=== PATIENT | male | born 1940 | race Caucasian/White ===

== ENCOUNTER 2016-02-20 06:30 | Inpatient (IN) | payer MEDICARE, OTHER ==
[~2016-02-20] VITALS: Ht 165.1 cm; Wt 90.4 kg
[2016-02-20] VITALS (9 sets, daily range): BP systolic 127–136; BP diastolic 71–72; PULSE 66–126; RESP 18–19; TEMP 98.6; Ht 165.1 cm; Wt 90.4 kg
[~2016-02-20 06:30] MED LIST: ADV25050 INH; ALBU18HF INHALATION; AMIO200T2 PO; ATOR10TA65 PO; ESOM40CA PO; FURO20TA3 PO; IPRA4AER INHALATION; LANT3I SC; LEVO500T72 PO; LOSA50TA6 PO; METO25TA7 PO; NOVO3I SC; POTA8TAB35 PO; PRED10TA PO; UMEC1DIS INHALATION
[2016-02-20] MEDS ORDERED: METHYLPREDNISOLONE 40 MG INJ IV STA (06:39)
[2016-02-20] MEDS ORDERED: ALBUTEROL 0.5% (NEB) 2.5 MG/0.5 ML AMP INH STA (06:39)
[2016-02-20] MEDS ORDERED: ASPIRIN 325 MG TAB PO ONE (07:00)
[2016-02-20] MEDS ORDERED: MAGNESIUM SULFATE 1 GM/D5W 100 ML IVPB ONE (07:00)
[2016-02-20 07:12] LABS: BASOPHILS % 0.5 % (0.0-2.0); EOSINOPHILS # 0.1 10^3/ul (0.0-0.5); EOSINOPHILS % 1.1 % (0.0-7.0); HEMATOCRIT 38.6 % (42.0-52.0); HEMOGLOBIN 13.3 g/dl (14.0-18.0); LYMPHOCYTES % 37.4 % (15.0-51.0); MEAN CORPUSCULAR HEMOGLOBIN 32.1 pg (29.0-33.0); MEAN CORPUSCULAR HGB CONC 34.3 g/dl (32.0-37.0); MEAN CORPUSCULAR VOLUME 93.4 fl (82.0-101.0); MEAN PLATELET VOLUME 8.9 fl (7.4-10.4); MONOCYTE # 1.1 10^3/ul (0.3-0.9); MONOCYTES % 13.9 % (0.0-11.0); NEUTROPHIL # 3.8 10^3/ul (1.6-7.5); NEUTROPHILS % 47.1 % (39.0-77.0); PLATELET COUNT 309 10^3/UL (140-440); RED BLOOD COUNT 4.13 10^6/ul (4.70-6.10); RED CELL DISTRIBUTION WIDTH 15.2 % (11.5-14.5); UNCORRECTED WBC 8.1 10^3/ul (4.8-10.8); WHITE BLOOD COUNT 8.1 10^3/ul (4.8-10.8)
--- NOTE | 2016-02-20 07:12 | RADRPT ---
PROCEDURE: XR Chest. CLINICAL INDICATION: Shortness of breath TECHNIQUE: 2 AP views of the chest were obtained COMPARISON: Chest x-ray dated 01/18/2006 FINDINGS: There is a left subclavian dual chamber pacemaker AICD. No focal airspace opacification, pleural effusion or pneumothorax is seen. The cardiomediastinal si lhouette is mildly enlarged. Calcifications are seen within the aortic arch. The osseous structure s demonstrate senescent changes. IMPRESSION: 1. No radiographic evidence of acute cardiopulmonary disease. no significant interval change. 2. Mild cardiomegaly and aortic atherosclerosis. 3. Left subclavian pacemaker AICD. RPTAT: HH .Loal Keller MD, MD Date Time Electronically viewed and signed by .Lola Keller MD, on 02/20/2016 07:12 .G/
[2016-02-20 07:13] LABS: CONDITION 1; LH ANALYZER COMMENTS 1
[2016-02-20 07:23] LABS: ALBUMIN 3.8 g/dl (3.3-4.9)
[2016-02-20 07:25] LABS: CREATININE 2.1 mg/dl (0.61-1.24)
[2016-02-20 07:26] LABS: ALBUMIN/GLOBULIN RATIO 1.08; BILIRUBIN,INDIRECT 0.2 mg/dl (0-1.1); BILIRUBIN,TOTAL 0.2 mg/dl (0.2-1.3); CALCIUM 9.2 mg/dl (8.4-10.2); INR 0.96; PROTIME 12.8 Sec (12.2-14.2); TOTAL PROTEIN 7.3 g/dl (6.1-8.1)
[2016-02-20 07:39] LABS: TROPONIN-I 0.106 ng/ml (0.00-0.12)
[2016-02-20] MEDS ORDERED: FUROSEMIDE 40 MG INJ IV ONE (08:00)
--- NOTE | 2016-02-20 08:32 | ERA ---
ER Documentation Chief Complaint Date/Time DATE: 02/20/16 TIME: 08:27 Chief Complaint SOB post internal defib fire x 3 HPI 75-year-old man with multiple medical conditions woke up today feeling short of breath and states his AICD discharged 3 times. Upon EMS arrival patient was found to be in ventricular tachycardia which resolved spontaneously. He denies chest pain, and states he remains short of breath although it has improved. He denies fevers or chills, no recent cough, no calf or leg swelling, no headache or blurry vision. Patient was transported here by EMS without other complications. ROS All systems reviewed and are negative except as per history of present illness. Medications Home Meds Active Scripts Insulin Glargine* (Lantus*) 100 Unit/Ml Soln, 21 UNIT SC DAILY for 5 Days, UNITS Prov:DEMETRIO JARAMILLONan . 01/21/16 Insulin Glargine* (Lantus*) 100 Unit/Ml Soln, 16 UNIT SC QHS for 30 Days start 01/27/16 Prov:DEMETRIO JARAMILLONan . 01/21/16 Albuterol/Ipratropium* (Combivent Respimat*) 20-100 Mcg/Inh - 4 Gm Aer.w.adap, 1 PUFF INHALATION Q4H WHILE AWAKE Y for SHORTNESS OF BREATH, #1 INHALER 1 Refill Prov:DEMETRIO JARAMILLONan . 01/21/16 Levofloxacin* (Levaquin*) 500 Mg Tablet, 500 MG PO DAILY for 5 Days, TAB Prov:CLINTDEMETRIO. 01/21/16 Salmeterol Xinaf/Fluticasone* (Advair*) 250-50 Diskus Inhaler, 1 INH INH BID, # 1 VIAL 1 Refill Prov:DEMETRIO JARAMILLONan . 01/21/16 Potassium Chloride* (Klor-Con*) 8 Meq Tablet.sa, 8 MEQ PO Q48H for 30 Days Prov:DEMETRIO JARAMILLO. 01/21/16 Insulin Aspart* (Novolog Insulin Pen*) 100 Unit/Ml Soln, 6 UNIT SC WITH MEALS for 30 Days ok to dispense vial if pen is not covered Prov:DEMETRIO JARAMILLONan . 01/21/16 Furosemide* (Furosemide*) 20 Mg Tablet, 20 MG PO DAILY for 30 Days, TAB Prov:CLINT,BOLATITO M. 01/21/16 Prednisone* (Prednisone*) 10 Mg Tab, 10 MG PO DAILY, #15 TAB take 5 pills tomorrow take 4 pills on the next day take 3 pills on the next day take 2 pills on the next day take 1 pill on the next day then stop Prov:SABA JARAMILLO M. 01/21/16 Reported Medications Umeclidinium Brm-Vilanterol Tr (Anoro Ellipta) 62.5-25 Mcg Disk.w.dev, 1 EACH INHALATION DAILY, #1 DISK 01/18/16 Losartan Potassium* (Losartan Potassium*) 50 Mg Tablet, 50 MG PO DAILY, TAB 01/18/16 Metoprolol Succinate* (Toprol XL*) 25 Mg Tab.sr.24h, 25 MG PO DAILY, #30 TAB 01/18/16 Amiodarone Hcl* (Amiodarone Hcl*) 200 Mg Tablet, 200 MG PO DAILY, #30 TAB 01/18/16 Albuterol Sulfate* (Ventolin HFA*) 18 Gm Hfa.aer.ad, 2 PUFF INHALATION Q4H Y for WHEEZING AND RESP DISTRESS, #1 INHALER 01/18/16 Atorvastatin Calcium (Atorvastatin Calcium) 10 Mg Tablet, 10 MG PO QHS, #30 TAB 01/18/16 Esomeprazole Mag Trihydrate (Nexium) 40 Mg Capsule.dr, 40 MG PO AC BREAKFAST, # 30 CAP 01/18/16 Allergies Allergies: Coded Allergies: No Known Allergy (Unverified , 01/20/16) PMhx/Soc AICD placement, chronic obstructive pulmonary disease, diabetes mellitus, hypertension, ischemic cardiomyopathy with a left ventricular ejection fraction of about 25%, paroxysmal atrial fibrillation, dyslipidemia History of Surgery: Yes (R leg surgery, AID) Anesthesia Reaction: No Hx Neurological Disorder: No Hx Respiratory Disorders: Yes (COPD) Hx Cardiac Disorders: Yes (HTN, DYSLIPIDEMIA, PREVIOUS UT, CHF) Hx Psychiatric Problems: No Hx Miscellaneous Medical Probl: Yes (DM) Hx Alcohol Use: No (QUIT) Hx Substance Use: No Hx Tobacco Use: Yes Smoking Status: Current some day smoker FmHx Family History: No diabetes Physical Exam Vitals Vital Signs Date Time Temp Pulse Resp B/P Pulse Ox O2 Delivery O2 Flow Rate FiO2 02/20/16 12:30 98.1 94 22 94/72 100 Nasal Cannula 4.0 02/20/16 09:56 98.1 92 22 119/64 100 Nasal Cannula 4.0 02/20/16 08:05 4.0 02/20/16 08:05 96 19 99 Nasal Cannula 4.0 02/20/16 07:57 98.1 90 16 107/54 100 Non Rebreather 02/20/16 06:48 Non Rebreather 12 02/20/16 06:41 Non Rebreather 12.0 02/20/16 06:30 98.1 116 16 141/81 100 Physical Exam GENERAL: Well-developed, well-nourished, dyspneic, afebrile HEENT: Moist mucous membranes, pink conjunctiva, no cervical spine tenderness or step-off deformities, no goiter, no jaundice or icterus, extraocular movements intact without pain. No submandibular induration, and no pharyngeal erythema NEURO: Alert and oriented 3, cranial nerves II through XII intact bilaterally, pupils equal round reactive to light, no focal deficits or facial asymmetry, sensation intact distally Strength 5/5 in upper and lower extremities bilaterally CARDIAC: Tachycardic and regular, no murmurs rubs or gallops LUNGS: Rhonchorous breath sounds with mild wheezing and crackles, no stridor ABDOMEN: Soft nontender, no guarding, no rigidity, no rebound, no psoas sign no obturator sign. Normoactive bowel sounds SKIN: Warm and dry to touch, no abrasions, contusions, or hematomas, no lacerations, no ecchymosis, no target lesions, and without ulcers EXTREMITIES: No clubbing cyanosis, 1+ pitting edema in the lower extremities bilaterally, calves are bilaterally symmetrical, no Homans sign, no popliteal cord sign. Distal pulses equal and bilateral PSYCH: Normal affect without agitation or irritability Result Diagram: 02/20/1635 02/20/1635 Results 24 hrs Laboratory Tests Test 02/20/16 06:35 Alanine Aminotransferase (ALT/SGPT) 21IU/L Albumin 3.8g/dl Albumin/Globulin Ratio 1.08 Alkaline Phosphatase 70IU/L Anion Gap 20 Aspartate Amino Transf (AST/SGOT) 19IU/L B-Type Natriuretic Peptide 3540PG/ML Basophils # 0.010^3/ul Basophils % 0.5% Blood Morphology Comment Blood Urea Nitrogen 19mg/dl Calcium Level 9.2mg/dl Carbon Dioxide Level 24mmol/L Chloride Level 105mmol/L Creatine Kinase 54IU/L Creatinine 2.10mg/dl Creatinine Kinase MB (Mass) Pending Direct Bilirubin 0.00mg/dl Eosinophils # 0.110^3/ul Eosinophils % 1.1% Globulin 3.50g/dl Glucose Level 158mg/dl Hematocrit 38.6% Hemoglobin 13.3g/dl INR International Normalized Ratio 0.96 Indirect Bilirubin 0.2mg/dl Lipase 153U/L Lymphocytes # 3.010^3/ul Lymphocytes % 37.4% Mean Corpuscular Hemoglobin 32.1pg Mean Corpuscular Hemoglobin Concent 34.3g/dl Mean Corpuscular Volume 93.4fl Mean Platelet Volume 8.9fl Monocytes # 1.110^3/ul Monocytes % 13.9% Neutrophils # 3.810^3/ul Neutrophils % 47.1% Nucleated Red Blood Cells # 0.010^3/ul Nucleated Red Blood Cells % 0.0/100WBC Platelet Count 57214^3/UL Potassium Level 5.0mmol/L Prothrombin Time 12.8Sec Prothrombin Time Ratio 1.0 Red Blood Count 4.1310^6/ul Red Cell Distribution Width 15.2% Sodium Level 144mmol/L Total Bilirubin 0.2mg/dl Total Protein 7.3g/dl Troponin I 0.106ng/ml White Blood Count 8.110^3/ul Current Medications Medications (Trade) Dose Ordered Sig/Francois Route PRN Reason Start Time Stop Time Status Last Admin Dose Admin Aspirin 325 mg 325 mg ONCE ONCE PO 02/20/16 07:00 02/20/16 07:01 DC 02/20/16 06:54 Magnesium Sulfate/ Dextrose (Magnesium Sulfate 1 Gm/D5W) 100 ml @ 100 mls/hr ONCE ONCE IVPB 02/20/16 07:00 02/20/16 07:59 DC 02/20/16 06:55 Albuterol (Proventil 0.5% (Neb)) 5 mg ONCE STAT INH 02/20/16 06:39 02/20/16 06:42 DC 02/20/16 07:45 Methylprednisolone Sodium Succinate (Solu-Medrol) 40 mg ONCE STAT IV 02/20/16 06:39 02/20/16 06:42 DC 02/20/16 06:55 Furosemide (Lasix) 40 mg ONCE ONCE IV 02/20/16 08:00 02/20/16 08:01 DC 02/20/16 07:53 Amiodarone HCl (Cordarone) 150 mg ONCE STAT IV 02/20/16 08:38 02/20/16 08:39 DC 02/20/16 08:44 Amiodarone HCl (Cordarone) 150 mg STK-MED ONCE .ROUTE 02/20/16 08:38 02/20/16 08:39 DC Albuterol (Ventolin Hfa) 2 puff Q4H PRN INH WHEEZING AND RESP DISTRESS 02/20/16 09:00 Amiodarone HCl (Cordarone) 200 mg DAILY PO 02/20/16 09:00 Atorvastatin Calcium (Lipitor) 10 mg QHS PO 02/20/16 21:00 Furosemide (Lasix) 20 mg DAILY PO 02/20/16 09:00 Insulin Aspart (Novolog Insulin Pen) 6 unit WITH MEALS SC 02/20/16 12:00 Insulin Glargine (Lantus) 18 unit QHS SC 02/20/16 21:00 Losartan Potassium (Cozaar) 50 mg DAILY PO 02/20/16 09:00 02/20/16 12:03 DC Metoprolol Succinate (Toprol Xl) 25 mg DAILY PO 02/20/16 09:00 Salmeterol Xinafoate/ Fluticasone (Advair 250/50 Diskus) 1 inh BID INH 02/20/16 09:00 02/20/16 12:21 Miscellaneous Information 1 puff Q4H WHILE AWAKE PRN INHALATION SHORTNESS OF BREATH 02/20/16 09:00 UNV Pantoprazole (Protonix Tab) 40 mg DAILY@06 PO 02/21/16 06:00 Miscellaneous Information 1 each DAILY INHALATION 02/20/16 09:00 UNV IV Flush (NS 3 ml) 3 ml PER PROTOCOL IV 02/20/16 09:00 Lorazepam (Ativan) 0.5 mg Q8H PRN PO ANXIETY 02/20/16 09:00 Ondansetron HCl (Zofran Tab) 4 mg Q6H PRN PO NAUSEA AND/OR VOMITING 02/20/16 09:00 Aspirin (Aspirin) 81 mg DAILY PO 02/20/16 09:00 Furosemide (Lasix) 20 mg BID IV 02/20/16 09:00 Nitroglycerin (Nitroglycerin (Sl Tab) 0.4 Mg) 1 tab Q5M PRN SL CHEST PAIN 02/20/16 09:00 Acetaminophen (Tylenol Tab) 650 mg Q6H PRN PO PAIN LEVEL 1-3 OR FEVER 02/20/16 09:00 Morphine Sulfate (morphine) 1 mg Q4H PRN IV PAIN LEVEL 7-10 02/20/16 09:00 Docusate Sodium (Colace) 100 mg Q12H PRN PO CONSTIPATION 02/20/16 09:00 Heparin Sodium (Porcine) (Heparin (5000 Units/0.5 ml)) 5,000 unit Q12 SC 02/20/16 09:00 02/20/16 12:23 Methylprednisolone Sodium Succinate (Solu-Medrol) 40 mg Q8 IV 02/20/16 14:00 Insulin Human NPH (Humulin N) 5 unit Q8H SC 02/20/16 14:00 Procedures/MDM IV line was established patient was placed on fruit sorter rhythm strip revealed a wide-complex tachycardia at about 120 bpm. Patient was afebrile. I administered magnesium 2 g IV, albuterol 5 mg via nebulizer, furosemide 40 mg IV, and aspirin 325 mg p.o. for cardioprotective measures. Patient had one other episode of ventricular tachycardia which improved after I administered amiodarone 150 mg IV 1. No AICD discharge was noted at this time. Critical Care: Time: 36 minutes, this was time separate from other procedures. Treatments/Evaluations: Close monitoring and treatment of unstable vital signs, cardiorespiratory, and neurologic status, while maintaining tight balance of fluid, respiratory, and cardiac interventions. One view chest x-ray performed, read by me reveals cardiomegaly, no acute infiltrates, no pneumothorax with AICD in the left chest. EKG performed, read by me reveals an atrial fibrillation with rapid ventricular rate, normal axis, right bundle branch block, QRS duration 140 ms, no concerning ST elevations or depressions noted. CBC and electrolytes were unremarkable, liver function tests are normal, troponin was negative, BNP was elevated over 3000. Departure Diagnosis: Primary Impression: Ventricular tachycardia (paroxysmal) Additional Impressions: AICD discharge Chronic obstructive pulmonary disease Qualified Code: J44.1 - Chronic obstructive pulmonary disease with acute exacerbation CHF (congestive heart failure) Qualified Code: I50.21 - Acute systolic congestive heart failure Atrial fibrillation and flutter Condition: RENETTA Banks MD Feb 20, 2016 08:32
[2016-02-20] MEDS ORDERED: AMIODARONE 150 MG INJ ONE (08:38)
[2016-02-20] MEDS ORDERED: AMIODARONE 150 MG INJ IV STA (08:38)
[2016-02-20] MEDS ORDERED: LOSARTAN 50 MG TAB PO SCH (09:00)
[2016-02-20] MEDS: FUROSEMIDE 40 MG INJ IV SCH ×2 (09:00→20:52)
[2016-02-20] MEDS ORDERED: ALBUTEROL/IPRATROPIUM (NEB) 3 ML AMP NEB PRN (09:00)
[2016-02-20] MEDS ORDERED: ACETAMINOPHEN 325 MG TAB PO PRN (09:00)
[2016-02-20] MEDS ORDERED: ONDANSETRON 4 MG TAB PO PRN (09:00)
[2016-02-20] MEDS ORDERED: NACL 0.9% 3 ML SYG IV SCH (09:00)
[2016-02-20] MEDS ORDERED: NITROGLYCERIN (SL) 0.4 MG TAB SL PRN (09:00)
[2016-02-20] MEDS ORDERED: DOCUSATE SODIUM 100 MG CAP PO PRN (09:00)
[2016-02-20] MEDS: AMIODARONE 200 MG TAB PO SCH (09:00)
[2016-02-20] MEDS ORDERED: METOPROLOL (XL) 25 MG TAB PO SCH ×2 (09:00→21:00)
[2016-02-20] MEDS: ASPIRIN 81 MG TAB PO SCH (09:00)
[2016-02-20] MEDS ORDERED: ALBUTEROL HFA 8 GM INHALER INH PRN (09:00)
[2016-02-20] MEDS ORDERED: morphine 2 MG INJ IV PRN (09:00)
[2016-02-20] MEDS ORDERED: NON-FORMULARY/PATIENT OWN MED (Umeclidinium Brm-Vilanterol Tr (Anoro Ellipta) 1 EACH) INHALATION SCH (09:00)
[2016-02-20] MEDS ORDERED: HEPARIN 5,000 UNIT/0.5 ML SYG SC SCH (09:00)
[2016-02-20] MEDS ORDERED: FUROSEMIDE 20 MG TAB PO SCH (09:00)
[2016-02-20] MEDS: SALMETEROL/FLUTICASONE 250/50 INHA INH SCH ×2 (12:21→20:52)
[2016-02-20 13:11] LABS: CK-MB 1.61 ng/ml (0.0-2.4)
[2016-02-20] MEDS: INSULIN ASPART [NOVOLOG] 3 ML PEN SC SCH ×5 (13:11→21:01)
--- NOTE | 2016-02-20 13:20 | CONS ---
DATE OF ADMISSION: 02/20/2016 DATE OF CONSULTATION: 02/20/2016 TYPE OF CONSULTATION: Nephrology. REQUESTING PHYSICIAN: Dr. Tong. REASON FOR CONSULTATION: Acute kidney injury. HISTORY OF PRESENT ILLNESS: This is a 75-year-old male with a past medical history of CKD with unkn own baseline renal function, history of diabetes, hypertension, dyslipidemia, history of arrhythmia, status post AICD placement, history of heart failure, history of COPD, tobacco abuse, who presents to [facility] for evaluation of shortness of breath and chest discomfort. The pat ient states that he has had increased shortness of breath over the last several days and this michaela colmenares was having chest discomfort with claims that his internal defibrillator fired 3 times. As a resul t, he came into the emergency room for evaluation. Upon arrival, the patient had a chest x-ray ic h showed no acute cardiopulmonary disease and a pacemaker with AICD placement. The patient had labo ratory data drawn in the emergency room which showed a hemoglobin of 13.1 with normal white count, B UN of 19, creatinine 2.10. In the emergency room, the patient was given steroids, nebulizers, diure tics. In terms of the patient's renal history, the patient states sees a transit worker in [place], but does not know what his baseline renal function is. He denies any episodes of rashes, frothy urine, hemo ptysis, hematemesis, hematochezia. PAST MEDICAL HISTORY: As stated above, history of CHF, history of arrhythmia, status post pacemaker , history of COPD, chronic kidney disease, diabetes, hypertension, AFib. PAST SURGICAL HISTORY: Status post AICD placement, status post pacemaker placement. ALLERGIES: NO KNOWN DRUG ALLERGIES. FAMILY HISTORY: No family history of kidney disease or heart disease. SOCIAL HISTORY: Does not drink. Positive for smoking. OUTPATIENT MEDICATIONS: Have been reviewed. ALLERGIES: NO KNOWN DRUG ALLERGIES. REVIEW OF SYSTEMS: A 14-point review of systems was conducted. Pertinent positives as stated in HP I, otherwise negative. PHYSICAL EXAMINATION: VITAL SIGNS: Blood pressure 119/64, respirations 22, pulse 92, temperature 98.1. HEENT: Head is normocephalic. NECK: Supple. HEART: Regular rate. LUNGS: Show diminished breath sounds at the base. ABDOMEN: Soft, nontender to palpation, without rebound or guarding. EXTREMITIES: Negative for clubbing, cyanosis. No edema. DERMATOLOGIC: No rashes. MUSCULOSKELETAL: No joint effusions. NEUROLOGIC: No focal deficits. LABORATORY DATA: Shows sodium 144, potassium , chloride 105, BUN 19, creatinine 2.10. White c ount 8.1, hemoglobin 13.3, hematocrit 38.6, platelet count . ASSESSMENT AND PLAN: This is a 75-year-old male who presents with: 1. Nonoliguric acute kidney injury with previous baseline creatinine of 1 to 1.3 mg/dL. Etiology o f current acute kidney injury is possibly hemodynamics, possible ARB effect, diuretics. Plan at thi s point is to check a UA with microanalysis. Will evaluate the urine under microscopy. Will check urine electrolytes, calculate a FENa (fractional excretion of urea). Will check a renal ultrasound to evaluate renal parenchyma. Would recommend to continue current treatment plan. Otherwise, philly nue supportive care, renally dose meds, avoid nephrotoxins, would monitor renal function closely on diuretic therapy. Would defer ARB at this time in the setting of acute kidney injury. 2. Anemia of chronic disease. Continue to monitor hemoglobin and hematocrit levels. 3. Mineral bone disorder. Monitor calcium and phosphorus levels. 4. Hypertension. Blood pressure is currently normotensive. Will monitor closely on blood pressure medication. 5. Acute hypoxemic respiratory failure. Etiology may be secondary to chronic obstructive pulmonary disease exacerbation, possible congestive heart failure. The patient is currently receiving nebuli zed therapy, antibiotics, steroids. Would continue. 6. History of systolic heart failure. The patient appears compensated. Chest x-ray shows no evide nce of congestion. No gross evidence of edema on exam. Continue medical management. Would continu e low-dose diuretic therapy at this time. Monitor renal function closely. 7. Atrial fibrillation with rapid rate. Continue patient on amiodarone, monitor closely. Follow u p with cardiology. 8. Automatic implantable cardioverter-defibrillator discharge. Etiology is unclear, possibly due t o underlying arrhythmia. Will again monitor closely. Will have cardiology evaluate the patient. Thank you, Dr. Tong, for this interesting consultation. It will be a pleasure to follow henry bains with you throughout the hospital course. Dictated By: KELSY BEE/LEONARDO Conf#: [id number] DID#: [id number]
[2016-02-20] MEDS ORDERED: GLUCAGON 1 MG INJ IM PRN (13:30)
[2016-02-20] MEDS ORDERED: GLUCOSE GEL 15 GRAM TUBE BUCCAL PRN (13:30)
[2016-02-20] MEDS ORDERED: GLUCOSE GEL 15 GRAM TUBE PO PRN ×2 (13:30)
[2016-02-20] MEDS ORDERED: DEXTROSE 50% 50 ML SYRINGE IV PRN ×2 (13:30)
[2016-02-20] MEDS: METHYLPREDNISOLONE 40 MG INJ IV SCH ×2 (14:06→20:56)
[2016-02-20] MEDS: NPH, HUMAN INSULIN ISOPHANE 3ML VIAL SC SCH ×2 (14:17→22:00)
--- NOTE | 2016-02-20 14:30 | RADRPT ---
PROCEDURE: Retroperitoneal US. CLINICAL INDICATION: richard TECHNIQUE: Multiple sonographic images of the retroperitoneum were obtained. The images were revi ewed on a PACS workstation. COMPARISON: No prior studies are available for comparison. FINDINGS: The right kidney measures 9.0 cm. The left kidney measures 10.1 cm. There is thinning of the renal cortices to approximately 1 cm bilaterally. The renal parenchymal echotexture is normal. There is no hydronephrosis. There is no focal renal mass or calcification seen. The bladder is grossly unremarkable. IMPRESSION: Atrophic kidneys without significantly increased parenchymal echogenicity to suggest medical renal d isease. Correlation with BUN and creatinine levels is recommended. The bladder is grossly unremarkable. RPTAT: EE Physician Erickson Date Time Electronically viewed and signed by Physician Erickson on 02/20/2016 14:30 /
[2016-02-20 15:36] LABS: CK-MB 7.06 ng/ml (0.0-2.4)
[2016-02-20 15:38] LABS: ADD UMIC NO; URINE BILIRUBIN (Dip) NEGATIVE (NEGATIVE); URINE BLOOD (Dip) NEGATIVE (NEGATIVE); URINE COLOR LT. YELLOW (YELLOW); URINE GLUCOSE (Dip) >=1000 % (NEGATIVE); URINE KETONES (Dip) NEGATIVE (NEGATIVE); URINE LEUKOCYTE ESTERASE (Dip) NEGATIVE (NEGATIVE); URINE NITRITE (Dip) NEGATIVE (NEGATIVE); URINE TOTAL PROTEIN (Dip) NEGATIVE (NEGATIVE); URINE UROBILINOGEN (Dip) 0.2 E.U./dL (0.1-1.0)
[2016-02-20 15:41] LABS: TROPONIN-I 1.06 ng/ml (0.00-0.12)
[2016-02-20] MEDS ORDERED: HEPARIN 25000 UNITS/250 ML 250 ML IV STA ×2 (15:55→16:13)
--- NOTE | 2016-02-20 16:02 | EN ---
Date/Time of Note Date/Time of Note DATE: 02/20/16 TIME: 16:01 ER Progress Note I was asked by this patient's nurse to start an IV heparin drip for this patient as this patient's entry level finance, Dr. Foster has requested one for this patient for an elevated troponin. A heparin drip was started per [facility] protocol ASHLEY CISNEROS DO Feb 20, 2016 16:02
[2016-02-20] MEDS: HEPARIN 25000 UNITS/250 ML 250 ML IV SCH (16:20)
[2016-02-20] MEDS ORDERED: AMIODARONE 150MG/D5W BOLUS 100 ML IV ONE (18:30)
[2016-02-20] MEDS ORDERED: AMIODARONE 900 MG in DEXTROSE 5% 482 ML IV SCH ×2 (18:30→19:00)
--- NOTE | 2016-02-20 18:38 | HP ---
DATE OF ADMISSION: 02/20/2016 CONSULTANTS: 1. Cosmetic Maker. 2. Hammerer Helper. CHIEF COMPLAINT: Palpitation and AICD shock. HISTORY OF PRESENT ILLNESS: This is a 75-year-old gentleman with past medical history of COPD, hype rtension, diabetes mellitus, cardiomyopathy, history of AICD, on chronic steroids, dyslipidemia, par oxysmal atrial fibrillation, congestive heart failure, chronic kidney disease, nicotine dependency, whom has been complaining of having shortness of breath since yesterday and said that he had AICD di abiodun 3 times this morning. 911 was called. Upon EMS arrival, the patient was found to be in antony tricular tachycardia which resolved spontaneously. The patient denied having any chest pain, althou gh he does complain of having shortness of breath. Does complain of some pleural pain, status post AICD discharge, although he has improved significantly since his arrival to emergency room. His mark rtness of breath also has been improving. He denies having any headache, dizziness, lightheadedness . No change in visual acuity, diplopia, photophobia. No recent cough, no recent travel history. N o calf or leg swelling. No dysuria, hematuria, urgency, incontinence. No nausea, vomiting or diarr hea. Upon arrival to the emergency room, his vitals were found to be blood pressure 141/81, tempera ture 98.1, pulse 92, respiration 22, saturating 100% on 4 liters via nasal cannula. The patient on EKG was found to be in atrial fibrillation flutter with 2:1 AV conduction, right bundle branch block . A repeat EKG showed wide QRS rhythm with frequent premature ventricular complexes, right bundle b ranch block. The patient was treated with heparin, losartan, aspirin and 40 mg IV Lasix, and Solu-M edrol, magnesium sulfate. Patient was found to be in V-tach and was treated with amiodarone 150 mg x1 dose, by the ER physician. At this time, the patient is A. fib, rate controlled. Denies having any chest pain or shortness of breath, although troponin upon admission was found to be 0.106, which then increased to 1.06. Cardiology was consulted from ER and patient has been started on heparin d rip. PAST MEDICAL AND SURGICAL HISTORY: As above per HPI. MEDICATIONS: 1. Ventolin HFA. 2. Combivent. 3. Amiodarone. 4. Lipitor. 5. Nexium. 6. Lasix. 7. NovoLog. 8. Lantus. 9. Levaquin. 10. Losartan. 11. Toprol-XL. 12. Potassium chloride. 13. Prednisone. 14. Advair. 15. Anoro Ellipta inhalation. ALLERGIES: NO KNOWN DRUG ALLERGIES. FAMILY HISTORY: Positive for diabetes mellitus, hypertension, coronary artery disease. SOCIAL HISTORY: He is a chronic smoker 1 pack of cigarettes per day for 40 years. He states he polo t about 2 weeks ago. He used to drink occasionally, although he does not drink anymore. No illicit drugs. REVIEW OF SYSTEMS: As above per HPI, otherwise 12 point review of systems has been found to be nega tive. PHYSICAL EXAMINATION: VITAL SIGNS: Temperature 98.6, pulse 82, respiration 18, blood pressure 126/65, oxygen saturation 9 6% on 4 liters via nasal cannula. GENERAL APPEARANCE: The patient is lying in bed comfortably without any acute distress. He is awak e, alert, oriented. He is able to answer my questions properly. Body habitus is morbidly obese. EYES AND ENT: Conjunctivae and lids are normal. Pupils are normal. Extraocular normal. Hearing g rossly normal. ____ are normal. Oral mucosa mildly dry. NECK: Supple. Trachea is midline. No lymphadenopathy. RESPIRATORY: Effort is normal. Clear to auscultate bilaterally. CARDIOVASCULAR: Normal S1, S2. Atrial fibrillation, rate controlled. No edema, no gallop. LUNGS: Bilateral upper lung wheezing. No crackles, no rales, or rhonchi. ABDOMEN: Soft, nontender, not distended. Bowel sound is present. No guarding, no rebound. CHEST: Normal expansion of thorax during inspiration. He is not using any accessory muscles for br eathing. GENITOURINARY: Deferred. MUSCULOSKELETAL: Upper and lower extremities within normal limits. Full range of motion. No edema . NEUROLOGIC: Cranial nerves II through XII are grossly intact. PSYCHIATRIC: He is awake, alert, oriented. LABORATORY WORK: Sodium 144, potassium 4.0, chloride 105, bicarbonate 24, BUN 19, creatinine 2.10, glucose 158. Calcium 9.2. LFTs all within normal limits. BNP 3540. Troponin 0.106 and 1.060. Li pase 153. WBC 8.1, hemoglobin 13.3, hematocrit 38.6, platelets 309. PT 12.8, INR 0.96. ASSESSMENT AND PLAN: 1. Ventricle atrial flutter status post automatic implantable cardioverter defibrillator shock. Ca rdiology has been consulted. We will follow his recommendation. Patient has been placed on amiodar one drip and continue metoprolol. 2. Ndx-NS-nsxtvrtshl infarction with a history of atrial flutter and recent ventricular tachycardia in the course of the emergency room. The patient will be continued on aspirin, has been placed on heparin drip. Cardiology has been consulted. Continue Lipitor. 3. Congestive heart failure. Follow up 2D echocardiogram. Continue losartan, Toprol, Lasix, stric t I's and O's. 4. History of atrial fibrillation. Continue metoprolol and amiodarone. The patient has been place d on heparin drip. 5. Acute on chronic renal insufficiency. Nephrology has been consulted. Be cautious with nephrot oxic medication. 6. Essential hypertension, well controlled on medical management. 7. Chronic obstructive pulmonary disease secondary to history of nicotine abuse. Continue breathin g treatments. This patient was placed on Solu-Medrol in the course of the emergency room. Continue breathing treatment. Pulmonology has been consulted. 8. For deep venous thrombosis prophylaxis, on heparin. 9. For gastrointestinal prophylaxis, on Protonix. 10. We will continue to monitor patient closely. Further recommendations, management and treatment as per clinical course. Total amount of time was spent for evaluation of patient and admission workup: 50 minutes. Dictated By: OSWALDO BOGGS/LEONARDO Conf#: [id number] DID#: [id number]
[2016-02-20 19:20] LABS: MAGNESIUM 2.3 mg/dl (1.7-2.5)
--- NOTE | 2016-02-20 19:49 | CONS ---
DATE OF ADMISSION: 02/20/2016 DATE OF CONSULTATION: 02/20/2016 REASON FOR CONSULTATION: Recurrent bouts of ventricular tachycardia, possible AICD discharge. REQUESTING PHYSICIAN: Dr. Miguel of the hospitalist service. HISTORY OF PRESENT ILLNESS: Mr. Rand is a 75-year-old male known to myself [facility] [place] where he had recently been admitted for COPD exacerbation, who has a history of COPD, hypertension , diabetes mellitus, cardiomyopathy with severely depressed left ventricular ejection fraction, last measured approximately 25% by 2D echo 01/2016, dyslipidemia, paroxysmal atrial fibrillation, systol ic heart failure, chronic kidney disease who had been discharged from ____ Hospital on the day prior to admission and states that he was at home and started to get up, felt very weak, difficulty breat dawson, and believed that he had an AICD discharge. States this happened x3 in total. He subsequentl y was brought here to the emergency department. Upon arrival, temperature 98.1, blood pressure 141/ 81, pulse 116, respirations 16, saturating 100%. The patient's labs revealed a white blood cell cou nt 8.1, hemoglobin 13.3, platelet count 309. A sodium 144, potassium 5.0, creatinine 2.1, BUN 19. Troponin 0.106. BNP of 3540. INR of 1.0. UA negative. The patient underwent a chest x-ray reveal ing mild cardiomegaly, aortic atherosclerosis, ICD in good place. The patient's electrocardiogram r evealed a wide complex rhythm, rate of 96, likely consistent with sinus rhythm with first degree AV block. There are some discernible P waves, a right bundle block, secondary to repolarization abnorm alities and inferior Q's. The patient, in the emergency department, was treated with amiodarone 150 mg IV x1, and given Toprol 25 mg p.o. x1, as well as magnesium 2 grams IV, aspirin 325 mg, Lasix 40 . Continued with albuterol. The patient's chest x-ray did not reveal any acute cardiopulmonary abn ormalities. The patient has now been admitted to the telemetry floor where he has had recurrent kate ts of a wide complex rhythm concerning for nonsustained ventricular tachycardia at a rate of approxi mately 120, regular. The patient has not received recurrent discharge on the floor. The patient, a t this time, denies chest pain. States he has mild shortness of breath. PAST MEDICAL HISTORY: As above in HPI. MEDICATIONS CURRENTLY IN HOSPITAL: 1. Protonix. 2. Lipitor. 3. Lantus. 4. Amiodarone to be started. 5. Heparin IV. 6. Solu-Medrol 40 mg IV q.8h. 7. Insulin sliding scale. 8. Albuterol. 9. Amiodarone 200 mg daily. 10. Lasix 20 mg daily. 11. Metoprolol 25 mg daily. 12. Advair. 13. DuoNebs. 14. Ativan p.r.n. 15. Aspirin 81 mg daily. 16. Lasix 20 mg IV b.i.d. SOCIAL HISTORY: Positive tobacco. No ETOH or illicit drug use. FAMILY HISTORY: No history of sudden cardiac or early CAD. REVIEW OF SYSTEMS: As above in HPI. CONSTITUTIONAL: No fevers, chills. PULMONARY: Shortness of breath. CARDIOVASCULAR: Cardiomyopathy with severely depressed left ventricular ejection fraction and nonsu stained ventricular tachycardia. GASTROINTESTINAL: No nausea, vomiting. GENITOURINARY: No hematuria, dysuria. MUSCULOSKELETAL: Degenerative joint disease. PSYCHIATRIC: The patient denies depression. NEUROLOGIC: No documented history of CVA. PHYSICAL EXAMINATION: VITAL SIGNS: Temperature 98.5, blood pressure 136/72, pulse 66, respiratory 18, saturating 99% on 4 liters. GENERAL: The patient is alert, awake, somewhat anxious. NECK: JVP approximately 9 cm of water. CHEST: Fair movement throughout with mild expiratory wheeze. HEART: Regular rate and rhythm. Normal S1, increased S2. Laterally displaced PMI. ABDOMEN: Positive bowel sounds, soft. EXTREMITIES: No pitting edema, 1+ pulses bilaterally, posterior tibial. LABORATORY DATA: As above in HPI with most recently from today: Troponin of 1.060, trended from 0 on admit. CK-MB of 7, CK total 156. IMAGING STUDIES: As above in HPI. No further imaging studies for my review at this time. ELECTROCARDIOGRAM: As above in HPI. No further electrocardiograms for my review at this time. IMPRESSION: 1. Wide complex tachycardia, most likely consistent with nonsustained ventricular tachycardia versu s aberrant supraventricular tachycardia, less likely. 2. Cardiomyopathy with severely depressed left ventricular ejection fraction last approximately 25% by echo January 2016. 3. Positive troponin in the setting of recurrent bouts of wide complex tachycardia. 4. Automatic implantable cardioverter defibrillator discharge per patient x3 this morning. 5. Chronic obstructive pulmonary disease. 6. Shortness of breath. 7. Congestive heart failure, systolic, acute on chronic. 8. Anemia. RECOMMENDATIONS: 1. At this time, would maintain the patient on telemetry monitoring to follow rhythm and rate contr ol closely. 2. Continue to trend the patient's cardiac enzymes to assess for any significant ongoing cardiac da mage. 3. Agree with initiation of amiodarone bolus, continuous IV infusion for suppression of further kate ts of wide complex tachycardia/nonsustained ventricular tachycardia. 4. Will increase the patient's beta-blockade to further suppress recurrent bouts of wide complex ta chycardia and will place patient on low dose hydralazine afterload reduction in the setting of renal failure. 5. Continue the patient's statin therapy and adjust it according to a fasting lipid panel to be landry cked. 6. We will discontinue the patient's albuterol to stimulate of further bouts of wide complex tachyc ardia and will consider use of Xopenex in lieu of albuterol. 7. Continue the patient's Lasix at this time. 8. Replete the patient's magnesium greater than 2, potassium greater than 4. 9. 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 10. Possible need for left heart catheterization, but will weigh this against the patient's ongoing renal failure and therefore will attempt medical therapy at this time first. 11. Additionally continue the patient's steroids for possible treatment of associated COPD exacerba tion. Thank you for allowing me to take part in the care of this patient. I will continue to follow very closely with you with further recommendations to be made as the patient progresses through his [facility] clinical course. Dictated By: CINTHIA NARANJO/LEONARDO Conf#: [id number] DID#: [id number] CC: OSWALDO MIGUEL MD;*End*
[2016-02-20 19:51] LABS: THYROID STIMULATING HORMONE 1.12 MIU/L (0.465-4.680)
[2016-02-20] MEDS: [UNRECOGNIZED DRUG - OTHER] XX SCH (20:17)
[2016-02-20] MEDS: UMECLIDINIUM XX SCH (20:17)
[2016-02-20 20:35] LABS: MAGNESIUM 2.3 mg/dl (1.7-2.5)
[2016-02-20] MEDS: ATORVASTATIN 10 MG TAB PO SCH (20:58)
[2016-02-20] MEDS ORDERED: METOPROLOL 5 MG INJ IV PRN (21:00)
[2016-02-20] MEDS ORDERED: AMIODARONE 200 MG TAB PO ONE (21:00)
[2016-02-20] MEDS ORDERED: METOPROLOL 5 MG INJ IV SCH (21:00)
[2016-02-20] MEDS: INSULIN GLARGINE [LANtus] 3 ML PEN SC SCH (21:00)
[2016-02-20] MEDS: METOPROLOL (XL) 25 MG TAB PO SCH (21:55)
[2016-02-20 22:45] LABS: AADO2 Arterial 151.4 mmHg (7.0-24.0); Allen Test ACCEPTAB; Arterial Base Excess -0.1 mmol/L (-3.0-3); Arterial COHb 0.3 % (0.0-3.0); Arterial Fraction of Oxyhgb 97.5 % (93.0-99.0); Arterial MetHb 0.2 % (0.0-1.5); Arterial Total Hemglobin 14.1 g/dl (12.0-18.0); MODE NASAL CANNULA
--- NOTE | 2016-02-20 22:47 | PN ---
Date/Time of Note Date/Time of Note DATE: 02/20/16 TIME: 22:44 Assessment/Plan VTE Prophylaxis VTE Prophylaxis Intervention: heparin Lines/Catheters Urinary Cath still in place: No Assessment/Plan Assessment/Plan Rapid Response Patient had received lasix and lopressor. After adequate time, his heart rate slowed down to 70's - 80's. His shortness of breath improved. An ABG was drawn. Patient is scheduled for possible catheterization tomorrow. this critical care note took greater than 45 min to complete Subjective 24 Hr Interval Summary Free Text/Dictation A rapid response was called 2/2 to having wide complex tachycardia with shortness of breath. The patient had received multiple breathing treatments, and lasix earlier. He became acutely short of breath. Upon arrival the patient looked short of breath and could not lay back. Otherwise spoke to the nurses about the care plan. 20 minutes spent. Exam/Review of Systems Vital Signs Vitals Vital Signs Date Time Temp Pulse Resp B/P Pulse Ox O2 Delivery O2 Flow Rate FiO2 02/20/16 20:57 91 02/20/16 20:49 97.8 19 127/71 98 02/20/16 17:41 Nasal Cannula 4.0 Exam Gen [place]: moderate respiratory distress, AAOx4 HEENT: NC/AT, PERRLA, EOMI, no pharyngeal erythema, no tonsillar exudates, no lymphadenopathy, no JVD, no carotid bruits NECK: supple, no thyromegaly THORAX: symmetrical, no obvious deformities CV: S1S2, tachycardiac, no M/G/R Lungs: bibasilar rhonchi no wheezing/crackles Abd: soft, NT/ND, +BS, no rebound, no guarding, neg HSM EXT: no edema, no ecchymosis, no clubbing, FROM Neuro: CN II-XII grossly intact, no focal deficits Psych: fair mood and affect Skin: C/D/I Results Result Diagram: 02/20/16 0635 02/20/161957 Results 24 hrs Laboratory Tests Test 02/20/16 06:35 02/20/16 13:09 02/20/16 14:30 02/20/16 15:30 Alanine Aminotransferase (ALT/SGPT) 21 Albumin 3.8 Albumin/Globulin Ratio 1.08 Alkaline Phosphatase 70 Anion Gap 20 H Aspartate Amino Transf (AST/SGOT) 19 B-Type Natriuretic Peptide 3540 H Basophils # 0.0 Basophils % 0.5 Blood Morphology Comment Blood Urea Nitrogen 19 Calcium Level 9.2 Carbon Dioxide Level 24 Chloride Level 105 Creatine Kinase 54 156 Creatinine 2.10 H Creatinine Kinase MB (Mass) 1.61 7.06 H Direct Bilirubin 0.00 Eosinophils # 0.1 Eosinophils % 1.1 Globulin 3.50 H Glucose Level 158 Hematocrit 38.6 L Hemoglobin 13.3 L INR International Normalized Ratio 0.96 Indirect Bilirubin 0.2 Lipase 153 Lymphocytes # 3.0 H Lymphocytes % 37.4 Mean Corpuscular Hemoglobin 32.1 Mean Corpuscular Hemoglobin Concent 34.3 Mean Corpuscular Volume 93.4 Mean Platelet Volume 8.9 Monocytes # 1.1 H Monocytes % 13.9 H Neutrophils # 3.8 Neutrophils % 47.1 Nucleated Red Blood Cells # 0.0 Nucleated Red Blood Cells % 0.0 Platelet Count 309 Potassium Level 5.0 Prothrombin Time 12.8 Prothrombin Time Ratio 1.0 Red Blood Count 4.13 L Red Cell Distribution Width 15.2 H Sodium Level 144 Total Bilirubin 0.2 Total Protein 7.3 Troponin I 0.106 1.060 *H White Blood Count 8.1 # Bedside Glucose 316 H Creatine Kinase Index 4.5 Magnesium Level 2.3 Thyroid Stimulating Hormone (TSH) 1.120 Urine Bilirubin NEGATIVE Urine Clarity CLEAR Urine Color LT. YELLOW Urine Glucose >=1000 Urine Hemoglobin NEGATIVE Urine Ketones NEGATIVE Urine Leukocyte Esterase NEGATIVE Urine Nitrite NEGATIVE Urine Random Creatinine 53.64 Urine Random Sodium 88 Urine Specific [place] 1.010 Urine Total Protein Urine Urobilinogen 0.2 E.U./dL Urine pH 5.5 Test 02/20/16 17:50 02/20/16 19:58 02/20/16 20:04 Bedside Glucose 314 H 251 H Magnesium Level 2.3 Potassium Level 5.0 Medications Medications Current Medications Albuterol (Ventolin Hfa) 2 puff Q4H PRN INH WHEEZING AND RESP DISTRESS; Start 02/20/16 at 09:00 Amiodarone HCl (Cordarone) 200 mg DAILY PO ; Start 02/20/16 at 09:00 Atorvastatin Calcium (Lipitor) 10 mg QHS PO Last administered on 02/20/16t 20: 58; Admin Dose 10 MG; Start 02/20/16 at 21:00 Furosemide (Lasix) 20 mg DAILY PO ; Start 02/20/16 at 09:00 Insulin Glargine (Lantus) 18 unit QHS SC Last administered on 02/20/16 21:00; Admin Dose 18 UNIT; Start 02/20/16 at 21:00 Salmeterol Xinafoate/ Fluticasone (Advair 250/50 Diskus) 1 inh BID INH Last administered on 02/20/16 20:52; Admin Dose 1 INH; Start 02/20/16 at 09:00 Pantoprazole (Protonix Tab) 40 mg DAILY@06 PO ; Start 02/21/16 at 06:00 Miscellaneous Information 1 each DAILY INHALATION ; Start 02/20/16 at 09:00; Status UNV Lorazepam (Ativan) 0.5 mg Q8H PRN PO ANXIETY; Start 02/20/16 at 09:00 Ondansetron HCl (Zofran Tab) 4 mg Q6H PRN PO NAUSEA AND/OR VOMITING; Start 01/24 at 09:00 Aspirin (Aspirin) 81 mg DAILY PO ; Start 02/20/16 at 09:00 Furosemide (Lasix) 20 mg BID IV Last administered on 02/20/16 20:52; Admin Dose 20 MG; Start 02/20/16 at 09:00 Nitroglycerin (Nitroglycerin (Sl Tab) 0.4 Mg) 1 tab Q5M PRN SL CHEST PAIN; Start 02/20/16 at 09:00 Acetaminophen (Tylenol Tab) 650 mg Q6H PRN PO PAIN LEVEL 1-3 OR FEVER; Start at 09:00 Morphine Sulfate (morphine) 1 mg Q4H PRN IV PAIN LEVEL 7-10; Start 02/20/16 at 09:00 Docusate Sodium (Colace) 100 mg Q12H PRN PO CONSTIPATION; Start 02/20/16 at 09: 00 Methylprednisolone Sodium Succinate (Solu-Medrol) 40 mg Q8 IV Last administered on 02/20/16 20:56; Admin Dose 40 MG; Start 02/20/16 at 14:00 Insulin Human NPH (Humulin N) 5 unit Q8H SC Last administered on 02/20/16 14: 17; Admin Dose 5 UNIT; Start 02/20/16 at 14:00 Miscellaneous Information 1 ea NOTE XX ; Start 02/20/16 at 13:30 Glucose (Glutose) 15 gm Q15M PRN PO DECREASED GLUCOSE; Start 02/20/16 at 13:30 Glucose (Glutose) 22.5 gm Q15M PRN PO DECREASED GLUCOSE; Start 02/20/16 at 13: 30 Dextrose (D50w Syringe) 25 ml Q15M PRN IV DECREASED GLUCOSE; Start 02/20/16 at 13:30 Dextrose (D50w Syringe) 50 ml Q15M PRN IV DECREASED GLUCOSE; Start 02/20/16 at 13:30 Glucagon (Glucagen) 1 mg Q15M PRN IM DECREASED GLUCOSE; Start 02/20/16 at 13:30 Glucose 15 gm 15 gm Q15M PRN BUCCAL DECREASED GLUCOSE; Start 02/20/16 at 13:30 Heparin Sodium (Porcine) 250 ml @ 10 mls/hr Q24H IV Last administered on 16:20; Admin Dose 10 MLS/HR; Start 02/20/16 at 16:15 Amiodarone HCl/ Dextrose (Cordarone Iv/ D5W) 500 ml @ 0 mls/hr Q0M IV Last administered on 02/20/16 21:10; Admin Dose 33.4 MLS/HR; Start 02/20/16 at 19:00 ; Stop 02/21/16 at 18:59 Miscellaneous Information (*Order Clarification Bulletin) MEDICATION REQUIRES CLARIFICATI... Q8H XX ; Start 02/20/16 at 18:30 Metoprolol Tartrate (Lopressor) 5 mg Q4H PRN IV ELEVATED HEART RATE; Start 01/24 at 21:00 Metoprolol Succinate (Toprol Xl) 25 mg BID PO Last administered on 02/20/16 21 :55; Admin Dose 25 MG; Start 02/20/16 at 21:30 NIDA MIRAMONTES MD Feb 20, 2016 22:47
[2016-02-21] VITALS (14 sets, daily range): BP systolic 89–117; BP diastolic 50–70; PULSE 69–79; RESP 17–20
[2016-02-21 02:14] LABS: CK-MB 5.6 ng/ml (0.0-2.4); TROPONIN-I 1.24 ng/ml (0.00-0.12)
[2016-02-21] MEDS: [UNRECOGNIZED DRUG - OTHER] XX SCH ×3 (02:30→22:19)
[2016-02-21] MEDS: UMECLIDINIUM XX SCH ×3 (02:30→22:19)
[2016-02-21] MEDS ORDERED: LORAZEPAM 2 MG INJ IV ONE (03:30)
[2016-02-21] MEDS: PANTOPRAZOLE (EC) 40 MG TAB PO SCH (06:00)
[2016-02-21] MEDS: METHYLPREDNISOLONE 40 MG INJ IV SCH ×3 (06:41→23:00)
[2016-02-21] MEDS: NPH, HUMAN INSULIN ISOPHANE 3ML VIAL SC SCH ×3 (07:08→23:03)
[2016-02-21 07:38] LABS: HEMATOCRIT 36.8 % (42.0-52.0); HEMOGLOBIN 12.6 g/dl (14.0-18.0); LYMPHOCYTES # 1.4 10^3/ul (0.8-2.9); LYMPHOCYTES % 8.5 % (15.0-51.0); MEAN CORPUSCULAR HEMOGLOBIN 31.9 pg (29.0-33.0); MEAN CORPUSCULAR HGB CONC 34.3 g/dl (32.0-37.0); MEAN PLATELET VOLUME 9.6 fl (7.4-10.4); MONOCYTE # 0.3 10^3/ul (0.3-0.9); MONOCYTES % 1.7 % (0.0-11.0); NEUTROPHIL # 15.2 10^3/ul (1.6-7.5); NEUTROPHILS % 89.8 % (39.0-77.0); PLATELET COUNT 338 10^3/UL (140-440); RED BLOOD COUNT 3.96 10^6/ul (4.70-6.10); UNCORRECTED WBC 16.9 10^3/ul (4.8-10.8); WHITE BLOOD COUNT 16.9 10^3/ul (4.8-10.8)
[2016-02-21 07:50] LABS: POTASSIUM 5.2 mmol/L (3.5-5.1)
[2016-02-21 07:53] LABS: CK-MB 4.47 ng/ml (0.0-2.4)
[2016-02-21 07:53] LABS: CREATININE 1.85 mg/dl (0.61-1.24)
[2016-02-21 07:54] LABS: CALCIUM 9.3 mg/dl (8.4-10.2); CHOL/HDL RATIO 5.4 RATIO; MAGNESIUM 2.5 mg/dl (1.7-2.5)
[2016-02-21] MEDS: INSULIN ASPART [NOVOLOG] 3 ML PEN SC SCH ×7 (07:55→23:04)
[2016-02-21 08:03] LABS: CONDITION 1; LH ANALYZER COMMENTS 1
[2016-02-21 08:04] LABS: TROPONIN-I 1.09 ng/ml (0.00-0.12)
--- NOTE | 2016-02-21 08:27 | RADRPT ---
PROCEDURE: XR Chest. CLINICAL INDICATION: Respiratory distress TECHNIQUE: AP view of the chest was obtained. COMPARISON: 02/20/2016 FINDINGS: There are atherosclerotic calcifications of the thoracic aorta. Cardiac silhouette remains enlarge d. The lungs appear clear. No pleural effusion or pneumothorax is seen. Left-sided dual lead ICD r emains in place IMPRESSION: Cardiomegaly, without acute cardiopulmonary disease identified. RPTAT: VV .Karri Sosa MD, MD Date Time Electronically viewed and signed by .Karri Sosa MD, MD on 02/21/2016 08:27 .O/
[2016-02-21] MEDS: AMIODARONE 200 MG TAB PO SCH ×2 (09:00→23:00)
[2016-02-21] MEDS: ACETYLCYSTEINE 600 MG CAP PO SCH ×2 (09:00→22:24)
[2016-02-21] MEDS: ASPIRIN 81 MG TAB PO SCH (09:55)
[2016-02-21] MEDS: METOPROLOL (XL) 25 MG TAB PO SCH ×2 (09:58→22:19)
[2016-02-21] MEDS: SALMETEROL/FLUTICASONE 250/50 INHA INH SCH ×2 (09:58→22:30)
[2016-02-21] MEDS: FUROSEMIDE 40 MG INJ IV SCH ×2 (09:59→22:19)
--- NOTE | 2016-02-21 11:37 | PN ---
DATE: 02/21/2016 SUBJECTIVE: The patient is stable, no acute events overnight. No fevers, chills, nausea, vomiting. The patient is on a heparin drip, amiodarone drip. The patient is pending cardiac catheterization this morning. No other events noted. OBJECTIVE: VITAL SIGNS: Blood pressure 93/50, respirations 19, pulse 70, temperature 98.1. HEENT: Head is normocephalic. NECK: Supple. HEART: Regular rate. LUNGS: Show diminished breath sounds at the base. ABDOMEN: Soft, nontender to palpation. No rebound or guarding. EXTREMITIES: Negative for clubbing, cyanosis. No edema. DERMATOLOGIC: No rashes. MUSCULOSKELETAL: No joint effusions. NEUROLOGIC: No change in exam. MEDICATIONS: Reviewed. LABORATORY DATA: Shows a white count 16.9, hemoglobin 10.6, hematocrit 36.8, platelet count 338. S odium 138, potassium 5.2, chloride 100, BUN 35, creatinine 185. Troponin is 1.24. IMAGING STUDIES: Renal ultrasound shows atrophic kidneys without increased parenchymal echogenicity . Urinalysis was reviewed, nonactive, FENa greater than 1%. ASSESSMENT AND PLAN: 1. Nonoliguric acute kidney injury with previous baseline creatinine around 112.3 mg/dL. Etiology of acute kidney injury is secondary to hemodynamics, possible ARB affect. The patient's urinalysis is bland, no evidence of active sediment. Renal ultrasound shows no evidence of obstruction. There fore, low suspicion for any form of acute glomerulonephritis, vasculitis, or interstitial nephritis. At this point, continue current treatment plan. Continue supportive care, renally dose meds, avoi d nephrotoxins, monitor renal function closely on diuretic therapy. We will continue to hold Cozaar . Additionally, the patient is at moderate risk for contrast-associated given his underlying chroni c kidney disease and acute kidney injury. Will start the patient on Mucomyst in the event urgent ca rdiac catheterization is necessary. 2. Mild hyperkalemia. Etiology is secondary to acute kidney injury, chronic kidney disease. Will monitor closely. Continue low-potassium diet. 3. Anemia of chronic disease. Continue to monitor hemoglobin and hematocrit levels. 4. Mineral bone disorder. Monitor calcium and phosphorus levels. No need for phosphate binders at this time. 5. Arrhythmia, wide complex tachycardia, nonsustained ventricular tachycardia. The patient is curr ently on amiodarone drip. We will continue. Follow up with cardiology. 6. Elevated troponin, [id number] myocardial infarction. The patient is currently on heparin drip, may require cardiac catheterization. Risks and benefits as stated above. Continue medical ma nagement. Follow up with cardiology. 7. Acute systolic congestive heart failure exacerbation. The patient is currently on low dose diur etic therapy. We will continue to monitor closely. Follow up with cardiology recommendations. 8. Acute respiratory failure. Etiology is multifactorial secondary to chronic obstructive pulmonar y disease exacerbation and possible congestive heart failure. The patient is on nebulized steroids. Continue. 9. Hypertension. Continue current blood pressure regimen. Dictated By: KELSY BEE/LEONARDO Conf#: [id number] DID#: [id number]
--- NOTE | 2016-02-21 12:35 | PN ---
Date/Time of Note Date/Time of Note DATE: 02/21/16 TIME: 12:30 Assessment/Plan VTE Prophylaxis VTE Prophylaxis Intervention: heparin Lines/Catheters IV [facility]atheter Type [facility]from [facility]): [facility] Urinary Cath still in place: No Assessment/Plan Chief Complaint/Hosp Course IMPRESSION: 1. Wide complex tachycardia, most likely consistent with nonsustained ventricular tachycardia versus aberrant supraventricular tachycardia, less likely. Cardiology has been consulted. We will follow his recommendation. Patient has been placed on amiodarone drip and continue metoprolol. 2. Cardiomyopathy with severely depressed left ventricular ejection fraction last approximately 25% by echo January 2016. Continue losartan, Toprol, Lasix, strict I's and O's. 3. Positive troponin in the setting of recurrent bouts of wide complex tachycardia. Cardiology has been consulted, continue heparin drip, aspirin, beta-jack and statin 4. Automatic implantable cardioverter defibrillator discharge per patient x3 Cardiology has been consulted, follow up his recommendations 5. Chronic obstructive pulmonary disease. Continue oxygen supplementation, breathing treatment, steroids 6. Shortness of breath. Likely secondary to COPD and CHF 7. Congestive heart failure, systolic, acute on chronic. As above 8. Anemia. Stable 9. Xov-RO-nkyzzbnrmm infarction with a history of atrial flutter and recent ventricular tachycardia in the course of the emergency room. The patient will be continued on aspirin, has been placed on heparin drip. Cardiology has been consulted. Continue Lipitor. 10. Acute on chronic renal insufficiency. Nephrology has been consulted. Be cautious with nephrotoxic medication. 11. Essential hypertension, well controlled on medical management. 12. For deep venous thrombosis prophylaxis, on heparin. 13. For gastrointestinal prophylaxis, on Protonix. We will continue monitor patient closely further recommendation management treatment as clinical course Problems: Subjective 24 Hr Interval Summary Free Text/Dictation Patient denies any chest pain or shortness of breath Tolerating oral intake Status post rapid response secondary to respiratory distress Exam/Review of Systems Vital Signs Vitals Vital Signs Date Time Temp Pulse Resp B/P Pulse Ox O2 Delivery O2 Flow Rate FiO2 02/21/16 11:17 98.5 73 18 97/57 100 02/20/16 20:00 Nasal Cannula 4.0 Intake and Output 02/20/16 02/20/16 02/21/16 15:00 23:00 07:00 Intake Total 100 ml 320 ml Output Total 1300 ml 500 ml Balance -1200 ml -500 ml 320 ml Exam General: The patient is moderately overweight, Not in acute distress. HEENT: Atraumatic, normocephalic. The pupils are equal and round . Neck: Supple with full range of motion. Chest: Normal expansion of the thorax during inspiration Lungs: Clear to auscultation bilaterally Heart: Normal S1-S2, Regular rhythm and rate. Abdomen: Soft , nontender, nondistended , bowel sounds are present. Extremities: Normal to inspection, no edema no cyanosis Neurologic: Normal mental status,The patient is awake, alert and oriented . Results Result Diagram: 02/21/16 0555 02/21/16 0601 Results 24 hrs Laboratory Tests Test 02/20/16 13:09 02/20/16 14:30 02/20/16 15:30 02/20/16 17:50 Bedside Glucose 316 H 314 H Creatine Kinase 156 Creatine Kinase Index 4.5 Creatinine Kinase MB (Mass) 7.06 H Magnesium Level 2.3 Thyroid Stimulating Hormone (TSH) 1.120 Troponin I 1.060 *H Urine Bilirubin NEGATIVE Urine Clarity CLEAR Urine Color LT. YELLOW Urine Glucose >=1000 Urine Hemoglobin NEGATIVE Urine Ketones NEGATIVE Urine Leukocyte Esterase NEGATIVE Urine Nitrite NEGATIVE Urine Random Creatinine 53.64 Urine Random Sodium 88 Urine Specific [place] 1.010 Urine Total Protein Urine Urobilinogen 0.2 E.U./dL Urine pH 5.5 Test 02/20/16 19:58 02/20/16 20:04 02/20/16 22:29 02/21/16 00:35 Magnesium Level 2.3 Potassium Level 5.0 Bedside Glucose 251 H Arterial Blood HCO3 23.0 Arterial Blood Base Excess -0.1 Arterial Blood Oxygen Saturation 98.0 Grant Test ACCEPTAB Arterial Blood Gas Puncture Site Right Radial Arterial Blood Carboxyhemoglobin 0.3 Arterial Blood Date Drawn 02/20/2016 10:35:27 PM Arterial Blood Methemoglobin 0.2 Arterial Blood pCO2 (Temp correct) 33.3 L Arterial Blood pH (Temp corrected) 7.458 H Arterial Blood pO2 (Temp corrected) 109.9 H Blood Gas A-a O2 Differential 151.4 H Blood Gas Modality NASAL CANNULA Blood Gas Notified Time 02/20/2016 10:45:27 PM Blood Gas Notified Whom OR Blood Gas Specimen Source Blood arterial Blood Gas Temperature 37.0 FiO2 42.0 Oxyhemoglobin Percent 97.5 Total Hemoglobin 14.1 Creatine Kinase 190 Creatine Kinase Index 2.9 Creatinine Kinase MB (Mass) 5.60 H Troponin I 1.240 *H Test 02/21/16 05:55 02/21/16 06:01 02/21/16 06:39 02/21/16 07:20 Basophils # 0.0 Basophils % 0.0 Blood Morphology Comment Creatine Kinase 139 Creatine Kinase Index 3.2 Creatinine Kinase MB (Mass) 4.47 H Digoxin Level 1.9 Eosinophils # 0.0 Eosinophils % 0.0 Hematocrit 36.8 L Hemoglobin 12.6 L Hemoglobin A1c 10.1 H Lymphocytes # 1.4 Lymphocytes % 8.5 L Mean Corpuscular Hemoglobin 31.9 Mean Corpuscular Hemoglobin Concent 34.3 Mean Corpuscular Volume 93.0 Mean Platelet Volume 9.6 Monocytes # 0.3 Monocytes % 1.7 Neutrophils # 15.2 H Neutrophils % 89.8 H Nucleated Red Blood Cells # 0.0 Nucleated Red Blood Cells % 0.0 Platelet Count 338 Red Blood Count 3.96 L Red Cell Distribution Width 15.0 H Troponin I 1.090 *H White Blood Count 16.9 #H Anion Gap 19 H Blood Urea Nitrogen 35 #H Calcium Level 9.3 Carbon Dioxide Level 24 Chloride Level 100 Cholesterol Level 159 Cholesterol/HDL Ratio 5.4 Creatinine 1.85 H Glucose Level 237 H HDL Cholesterol 29 L LDL Cholesterol, Calculated 109 Magnesium Level 2.5 Potassium Level 5.2 H Sodium Level 138 Triglycerides Level 103 Bedside Glucose 260 H Activated Partial Thromboplast Time 58.7 H Test 02/21/16 07:56 02/21/16 11:41 Bedside Glucose 271 H 282 H Medications Medications Current Medications Albuterol (Ventolin Hfa) 2 puff Q4H PRN INH WHEEZING AND RESP DISTRESS; Start 02/20/16 at 09:00 Amiodarone HCl (Cordarone) 200 mg DAILY PO ; Start 02/20/16 at 09:00 Atorvastatin Calcium (Lipitor) 10 mg QHS PO Last administered on 02/20/16 20: 58; Admin Dose 10 MG; Start 02/20/16 at 21:00 Furosemide (Lasix) 20 mg DAILY PO ; Start 02/20/16 at 09:00; Status Future Hold Insulin Glargine (Lantus) 18 unit QHS SC Last administered on 02/20/16 21:00; Admin Dose 18 UNIT; Start 02/20/16 at 21:00 Salmeterol Xinafoate/ Fluticasone (Advair 250/50 Diskus) 1 inh BID INH Last administered on 02/21/16 09:58; Admin Dose 1 INH; Start 02/20/16 at 09:00 Pantoprazole (Protonix Tab) 40 mg DAILY@06 PO ; Start 02/21/16 at 06:00 Miscellaneous Information 1 each DAILY INHALATION ; Start 02/20/16 at 09:00; Status UNV Lorazepam (Ativan) 0.5 mg Q8H PRN PO ANXIETY; Start 02/20/16 at 09:00 Ondansetron HCl (Zofran Tab) 4 mg Q6H PRN PO NAUSEA AND/OR VOMITING; Start 01/24 at 09:00 Aspirin (Aspirin) 81 mg DAILY PO Last administered on 02/21/16 09:55; Admin Dose 81 MG; Start 02/20/16 at 09:00 Furosemide (Lasix) 20 mg BID IV Last administered on 02/21/16 09:59; Admin Dose 20 MG; Start 02/20/16 at 09:00 Nitroglycerin (Nitroglycerin (Sl Tab) 0.4 Mg) 1 tab Q5M PRN SL CHEST PAIN; Start 02/20/16 at 09:00 Acetaminophen (Tylenol Tab) 650 mg Q6H PRN PO PAIN LEVEL 1-3 OR FEVER; Start at 09:00 Morphine Sulfate (morphine) 1 mg Q4H PRN IV PAIN LEVEL 7-10; Start 02/20/16 at 09:00 Docusate Sodium (Colace) 100 mg Q12H PRN PO CONSTIPATION; Start 02/20/16 at 09: 00 Methylprednisolone Sodium Succinate (Solu-Medrol) 40 mg Q8 IV Last administered on 02/21/16 06:41; Admin Dose 40 MG; Start 02/20/16 at 14:00 Insulin Human NPH (Humulin N) 5 unit Q8H SC Last administered on 02/21/16 07: 08; Admin Dose 5 UNIT; Start 02/20/16 at 14:00 Miscellaneous Information 1 ea NOTE XX ; Start 02/20/16 at 13:30 Glucose (Glutose) 15 gm Q15M PRN PO DECREASED GLUCOSE; Start 02/20/16 at 13:30 Glucose (Glutose) 22.5 gm Q15M PRN PO DECREASED GLUCOSE; Start 02/20/16 at 13: 30 Dextrose (D50w Syringe) 25 ml Q15M PRN IV DECREASED GLUCOSE; Start 02/20/16 at 13:30 Dextrose (D50w Syringe) 50 ml Q15M PRN IV DECREASED GLUCOSE; Start 02/20/16 at 13:30 Glucagon (Glucagen) 1 mg Q15M PRN IM DECREASED GLUCOSE; Start 02/20/16 at 13:30 Glucose 15 gm 15 gm Q15M PRN BUCCAL DECREASED GLUCOSE; Start 02/20/16 at 13:30 Heparin Sodium (Porcine) 250 ml @ 10 mls/hr Q24H IV Last administered on 16:20; Admin Dose 10 MLS/HR; Start 02/20/16 at 16:15 Amiodarone HCl/ Dextrose (Cordarone Iv/ D5W) 500 ml @ 0 mls/hr Q0M IV Last administered on 02/20/16 21:10; Admin Dose 33.4 MLS/HR; Start 02/20/16 at 19:00 ; Stop 02/21/16 at 18:59 Miscellaneous Information (*Order Clarification Bulletin) MEDICATION REQUIRES CLARIFICATI... Q8H XX ; Start 02/20/16 at 18:30 Metoprolol Tartrate (Lopressor) 5 mg Q4H PRN IV ELEVATED HEART RATE; Start 01/24 at 21:00 Metoprolol Succinate (Toprol Xl) 25 mg BID PO Last administered on 02/21/16 09 :58; Admin Dose 25 MG; Start 02/20/16 at 21:30 Acetylcysteine (Nac) 600 mg BID PO ; Start 02/21/16 at 09:00 OSWALDO MIGUEL MD Feb 21, 2016 12:35
--- NOTE | 2016-02-21 15:02 | CONS ---
DATE OF ADMISSION: 02/20/2016 DATE OF CONSULTATION: 02/21/2016 TYPE OF CONSULTATION: Pulmonary. REFERRING PHYSICIAN: Dr. Tong. REASON FOR CONSULTATION: Shortness of breath. HISTORY OF PRESENT ILLNESS: This is a 75-year-old gentleman with multiple medical problems, who was brought to the emergency via 911 after he was found to have AICD discharge for 3 times yesterday mo rning. He was also complaining of shortness of breath. On arrival, EMS found him in wide QRS tachy cardia, which resolved spontaneously. The patient was subsequently hospitalized and seen by Dr. Ant loredo in cardiology consultation. The patient was given IV amiodarone in the emergency room also. P atient also noted to have elevated troponins at the time. At present, the patient is on oxygen nasa l cannula, saturating 96%. He is visibly tachypneic although not using any accessory muscles of res piration. He denies any chest pain at this time. He admits to cough, but not bringing up any sputu m. Initially, the patient was thought to undergo a possible cardiac catheterization today, but due to elevated creatinine, it has been postponed. REVIEW OF SYSTEMS: CONSTITUTIONAL: Denies having any fever, chills, night sweats. RESPIRATORY: Admits to cough and shortness of breath though not able to bring up any sputum. Denie s any hemoptysis. CARDIOVASCULAR: Denies any typical anginal symptoms of further events as mentioned above. GASTROINTESTINAL: Denies nausea, vomiting, diarrhea, abdominal pain. GENITOURINARY: Denies dysuria or hematuria. NEUROLOGICAL: Denies dizziness, loss of consciousness. All other systems were reviewed also and fo und to be negative. PAST MEDICAL HISTORY: Apparently history of severe COPD on steroids, hypertension, diabetes mellitu s, cardiomyopathy status post AICD placement, dyslipidemia, paroxysmal atrial fibrillation, congesti ve heart failure, chronic kidney disease. ALLERGIES: NO KNOWN ALLERGIES. SOCIAL HABITS: Ex-smoker. He is a chronic smoker of 1 pack a day for the last 40 years. He says t hat he has not been smoking for past few days. He drinks occasionally. Denies any drug abuse. FAMILY HISTORY: Positive for diabetes mellitus, hypertension, and coronary artery disease. PHYSICAL EXAMINATION: VITAL SIGNS: Blood pressure 97/57, pulse 73, respiration 18, temperature 98.5. HEENT: Pupils are equal and reactive to light. Anicteric sclerae. Cushingoid facial features note d. NECK: Supple, no JVD noted. No cervical lymphadenopathy noted. No carotid bruits heard. LUNGS: Diminished breath sounds bilaterally with few scattered wheezes. CARDIOVASCULAR: S1 and S2 normal. ABDOMEN: Soft, obese, nontender. No organomegaly or masses noted. EXTREMITIES: No clubbing, cyanosis, or edema noted. No discrepancy in size of a calf noted. Davin s sign negative. No palpable cords present. NEUROLOGICAL: Awake and no focal deficits. LABORATORIES: WBC 16.9, hemoglobin 12.6, hematocrit 36.8, platelets 238. Sodium 138, potassium 5.2 , chloride 100, CO2 of 24, BUN 35, creatinine 1.85, glucose 237. Troponin 1.09. ABG shows a pH 7.4 5, pCO2 of 33, pO2 110. PTT is 58.7 on IV heparin. Chest x-ray shows cardiomegaly with no acute in filtrate. Ultrasound of the kidney shows atrophic kidneys consistent with medical renal disease. N o hydronephrosis. IMPRESSION: A 75-year-old male with: 1. Wide QRS complex tachycardia, now reverted to sinus rhythm. It is not clear whether this is a v entricular tachycardia per se versus supraventricular tachycardia with aberrant conduction. 2. Non-STEMI. 3. Severe chronic obstructive pulmonary disease. 4. History of congestive heart failure. 5. History of atrial fibrillation. 6. Acute on chronic renal insufficiency. 7. History of hypertension. RECOMMENDATIONS: 1. Cardiac catheterization has been canceled due to elevated creatinine. 2. Nephrology recommendations noted. 3. Taper steroids. 4. Bronchodilators. 5. Oxygen. 6. We will continue to follow along with you. Dictated By: PANTERA ALFARO MD, MA/LEONARDO Conf#: [id number] DID#: [id number]
[2016-02-21] MEDS: HEPARIN 25000 UNITS/250 ML 250 ML IV SCH (15:55)
--- NOTE | 2016-02-21 17:09 | CONS ---
Date/Time of Note Date/Time of Note DATE: 02/21/16 TIME: 17:02 Assessment/Plan Assessment/Plan Chief Complaint/Hosp Course IMPRESSION: 1. Wide complex tachycardia, most likely consistent with nonsustained ventricular tachycardia versus aberrant supraventricular tachycardia, less likely.-improved on IV amio/BB 2. Cardiomyopathy with severely depressed left ventricular ejection fraction last approximately 25% by echo January 2016. 3. Positive troponin in the setting of recurrent bouts of wide complex tachycardia.-now downtrending 4. Automatic implantable cardioverter defibrillator discharge per patient x3 this morning. 5. Chronic obstructive pulmonary disease. 6. Shortness of breath. 7. Congestive heart failure, systolic, acute on chronic. 8. Anemia. 9.Renal failure acute on chronic Recc: -Tele -Continue BB -low dose hydralazine afterload reduction in lieu of ACEI given renal failure -Continue asa -Follow renal fxn closely with [facility] when registered nurse maternal child optimized -Transition from IV to PO amiodarone to suppress further bouts of VT -Contiue steroids/brochodilators/steroids -Continue gentle lasix diuresis Problems: Consultation Date/Type/Reason Admit Date/Time Feb 20, 2016 at 08:27 Initial Consult Date 02/20/16 Type of Consultation: Cardiology Reason for Consultation VT/cardiomyopathy Referring Provider: OSWALDO MIGUEL MD Exam/Review of Systems Vital Signs Vitals Vital Signs Date Time Temp Pulse Resp B/P Pulse Ox O2 Delivery O2 Flow Rate FiO2 02/21/16 16:54 73 02/21/16 15:25 98.0 18 89/60 94 02/21/16 08:15 Nasal Cannula 4.0 Intake and Output 02/20/16 02/20/16 02/21/16 15:00 23:00 07:00 Intake Total 100 ml 320 ml Output Total 1300 ml 500 ml Balance -1200 ml -500 ml 320 ml Exam Review of Systems: CONSTITUTIONAL: No fevers, chills. PULMONARY: Mild sob CARDIOVASCULAR: No chest pain/palpitations GASTROINTESTINAL: No nausea/vomiting. GENITOURINARY: No hematuria/dysuria. MUSCULOSKELETAL: No obvious myagias/arthalgias. PSYCHIATRIC: The patient denies depression. NEUROLOGIC: No weakness Constitutional: alert, oriented Psych: no complaints Head: normocephalic ENMT: mucosa pink and moist Neck: jvd, supple Respiratory: diminished breath sounds Cardiovascular: regular rate and rhythm Gastrointestinal: non-tender, soft Musculoskeletal: muscle tone Extremities: normal pulses Neurological: other (No focal deficits) Results Result Diagram: 02/21/16 0555 02/21/16 0601 Results 24 hrs Laboratory Tests Test 02/20/16 17:50 02/20/16 19:58 02/20/16 20:04 02/20/16 22:29 Bedside Glucose 314 H 251 H Magnesium Level 2.3 Potassium Level 5.0 Arterial Blood HCO3 23.0 Arterial Blood Base Excess -0.1 Arterial Blood Oxygen Saturation 98.0 Grant Test ACCEPTAB Arterial Blood Gas Puncture Site Right Radial Arterial Blood Carboxyhemoglobin 0.3 Arterial Blood Date Drawn 02/20/2016 10:35:27 PM Arterial Blood Methemoglobin 0.2 Arterial Blood pCO2 (Temp correct) 33.3 L Arterial Blood pH (Temp corrected) 7.458 H Arterial Blood pO2 (Temp corrected) 109.9 H Blood Gas A-a O2 Differential 151.4 H Blood Gas Modality NASAL CANNULA Blood Gas Notified Time 02/20/2016 10:45:27 PM Blood Gas Notified Whom CO Blood Gas Specimen Source Blood arterial Blood Gas Temperature 37.0 FiO2 42.0 Oxyhemoglobin Percent 97.5 Total Hemoglobin 14.1 Test 02/21/16 00:35 02/21/16 05:55 02/21/16 06:01 02/21/16 06:39 Creatine Kinase 190 139 Creatine Kinase Index 2.9 3.2 Creatinine Kinase MB (Mass) 5.60 H 4.47 H Troponin I 1.240 *H 1.090 *H Basophils # 0.0 Basophils % 0.0 Blood Morphology Comment Digoxin Level 1.9 Eosinophils # 0.0 Eosinophils % 0.0 Hematocrit 36.8 L Hemoglobin 12.6 L Hemoglobin A1c 10.1 H Lymphocytes # 1.4 Lymphocytes % 8.5 L Mean Corpuscular Hemoglobin 31.9 Mean Corpuscular Hemoglobin Concent 34.3 Mean Corpuscular Volume 93.0 Mean Platelet Volume 9.6 Monocytes # 0.3 Monocytes % 1.7 Neutrophils # 15.2 H Neutrophils % 89.8 H Nucleated Red Blood Cells # 0.0 Nucleated Red Blood Cells % 0.0 Platelet Count 338 Red Blood Count 3.96 L Red Cell Distribution Width 15.0 H White Blood Count 16.9 #H Anion Gap 19 H Blood Urea Nitrogen 35 #H Calcium Level 9.3 Carbon Dioxide Level 24 Chloride Level 100 Cholesterol Level 159 Cholesterol/HDL Ratio 5.4 Creatinine 1.85 H Glucose Level 237 H HDL Cholesterol 29 L LDL Cholesterol, Calculated 109 Magnesium Level 2.5 Potassium Level 5.2 H Sodium Level 138 Triglycerides Level 103 Bedside Glucose 260 H Test 02/21/16 07:20 02/21/16 07:56 02/21/16 11:41 Activated Partial Thromboplast Time 58.7 H Bedside Glucose 271 H 282 H Medications Medications Current Medications Albuterol (Ventolin Hfa) 2 puff Q4H PRN INH WHEEZING AND RESP DISTRESS; Start 02/20/16 at 09:00 Amiodarone HCl (Cordarone) 200 mg DAILY PO ; Start 02/20/16 at 09:00 Atorvastatin Calcium (Lipitor) 10 mg QHS PO Last administered on 02/20/16 20: 58; Admin Dose 10 MG; Start 02/20/16 at 21:00 Furosemide (Lasix) 20 mg DAILY PO ; Start 02/20/16 at 09:00; Status Future Hold Insulin Glargine (Lantus) 18 unit QHS SC Last administered on 02/20/16 21:00; Admin Dose 18 UNIT; Start 02/20/16 at 21:00 Salmeterol Xinafoate/ Fluticasone (Advair 250/50 Diskus) 1 inh BID INH Last administered on 02/21/16 09:58; Admin Dose 1 INH; Start 02/20/16 at 09:00 Pantoprazole (Protonix Tab) 40 mg DAILY@06 PO ; Start 02/21/16 at 06:00 Miscellaneous Information 1 each DAILY INHALATION ; Start 02/20/16 at 09:00; Status UNV Lorazepam (Ativan) 0.5 mg Q8H PRN PO ANXIETY; Start 02/20/16 at 09:00 Ondansetron HCl (Zofran Tab) 4 mg Q6H PRN PO NAUSEA AND/OR VOMITING; Start 01/24 at 09:00 Aspirin (Aspirin) 81 mg DAILY PO Last administered on 02/21/16 09:55; Admin Dose 81 MG; Start 02/20/16 at 09:00 Furosemide (Lasix) 20 mg BID IV Last administered on 02/21/16 09:59; Admin Dose 20 MG; Start 02/20/16 at 09:00 Nitroglycerin (Nitroglycerin (Sl Tab) 0.4 Mg) 1 tab Q5M PRN SL CHEST PAIN; Start 02/20/16 at 09:00 Acetaminophen (Tylenol Tab) 650 mg Q6H PRN PO PAIN LEVEL 1-3 OR FEVER; Start at 09:00 Morphine Sulfate (morphine) 1 mg Q4H PRN IV PAIN LEVEL 7-10; Start 02/20/16 at 09:00 Docusate Sodium (Colace) 100 mg Q12H PRN PO CONSTIPATION; Start 02/20/16 at 09: 00 Methylprednisolone Sodium Succinate (Solu-Medrol) 40 mg Q8 IV Last administered on 02/21/16 14:05; Admin Dose 40 MG; Start 02/20/16 at 14:00 Insulin Human NPH (Humulin N) 5 unit Q8H SC Last administered on 02/21/16 14: 15; Admin Dose 5 UNIT; Start 02/20/16 at 14:00 Miscellaneous Information 1 ea NOTE XX ; Start 02/20/16 at 13:30 Glucose (Glutose) 15 gm Q15M PRN PO DECREASED GLUCOSE; Start 02/20/16 at 13:30 Glucose (Glutose) 22.5 gm Q15M PRN PO DECREASED GLUCOSE; Start 02/20/16 at 13: 30 Dextrose (D50w Syringe) 25 ml Q15M PRN IV DECREASED GLUCOSE; Start 02/20/16 at 13:30 Dextrose (D50w Syringe) 50 ml Q15M PRN IV DECREASED GLUCOSE; Start 02/20/16 at 13:30 Glucagon (Glucagen) 1 mg Q15M PRN IM DECREASED GLUCOSE; Start 02/20/16 at 13:30 Glucose 15 gm 15 gm Q15M PRN BUCCAL DECREASED GLUCOSE; Start 02/20/16 at 13:30 Heparin Sodium (Porcine) 250 ml @ 10 mls/hr Q24H IV Last administered on 15:55; Admin Dose 10 MLS/HR; Start 02/20/16 at 16:15 Amiodarone HCl/ Dextrose (Cordarone Iv/ D5W) 500 ml @ 0 mls/hr Q0M IV Last administered on 02/20/16 21:10; Admin Dose 33.4 MLS/HR; Start 02/20/16 at 19:00 ; Stop 02/21/16 at 18:59 Miscellaneous Information (*Order Clarification Bulletin) MEDICATION REQUIRES CLARIFICATI... Q8H XX ; Start 02/20/16 at 18:30 Metoprolol Tartrate (Lopressor) 5 mg Q4H PRN IV ELEVATED HEART RATE; Start 01/24 at 21:00 Metoprolol Succinate (Toprol Xl) 25 mg BID PO Last administered on 02/21/16t 09 :58; Admin Dose 25 MG; Start 02/20/16 at 21:30 Acetylcysteine (Nac) 600 mg BID PO ; Start 02/21/16 at 09:00 CINTHIA GOLDBERG Feb 21, 2016 17:09
[2016-02-21 17:18] LABS: MICROALBUMIN 0.3 mg/dL
[2016-02-21] MEDS: ATORVASTATIN 10 MG TAB PO SCH (22:22)
[2016-02-21] MEDS: INSULIN GLARGINE [LANtus] 3 ML PEN SC SCH (23:04)
[2016-02-22] VITALS (13 sets, daily range): BP systolic 93–112; BP diastolic 51–75; PULSE 75–84; RESP 16–20
[2016-02-22] MEDS: [UNRECOGNIZED DRUG - OTHER] XX SCH ×3 (02:30→18:30)
[2016-02-22] MEDS: UMECLIDINIUM XX SCH ×3 (02:30→18:30)
[2016-02-22] MEDS: PANTOPRAZOLE (EC) 40 MG TAB PO SCH (05:27)
[2016-02-22] MEDS: METHYLPREDNISOLONE 40 MG INJ IV SCH (05:27)
[2016-02-22] MEDS: AMIODARONE 200 MG TAB PO SCH ×3 (05:28→21:02)
[2016-02-22] MEDS: NPH, HUMAN INSULIN ISOPHANE 3ML VIAL SC SCH (05:33)
[2016-02-22 06:48] LABS: POTASSIUM 4.8 mmol/L (3.5-5.1)
[2016-02-22 06:50] LABS: CREATININE 1.92 mg/dl (0.61-1.24)
[2016-02-22 06:51] LABS: PHOSPHORUS 5.9 mg/dl (2.5-4.9)
[2016-02-22 06:52] LABS: CALCIUM 9.2 mg/dl (8.4-10.2); MAGNESIUM 2.4 mg/dl (1.7-2.5)
[2016-02-22 06:53] LABS: BASOPHILS % 0.1 % (0.0-2.0); HEMATOCRIT 34.2 % (42.0-52.0); HEMOGLOBIN 11.7 g/dl (14.0-18.0); LYMPHOCYTES # 0.9 10^3/ul (0.8-2.9); MEAN CORPUSCULAR HEMOGLOBIN 31.8 pg (29.0-33.0); MEAN CORPUSCULAR HGB CONC 34.3 g/dl (32.0-37.0); MEAN CORPUSCULAR VOLUME 92.6 fl (82.0-101.0); MEAN PLATELET VOLUME 9.5 fl (7.4-10.4); MONOCYTE # 0.5 10^3/ul (0.3-0.9); MONOCYTES % 2.2 % (0.0-11.0); NEUTROPHIL # 21.6 10^3/ul (1.6-7.5); NEUTROPHILS % 93.7 % (39.0-77.0); PLATELET COUNT 339 10^3/UL (140-440); RED BLOOD COUNT 3.69 10^6/ul (4.70-6.10); RED CELL DISTRIBUTION WIDTH 15.1 % (11.5-14.5); UNCORRECTED WBC 23.1 10^3/ul (4.8-10.8); WHITE BLOOD COUNT 23.1 10^3/ul (4.8-10.8)
[2016-02-22 07:27] LABS: CONDITION 1; LH ANALYZER COMMENTS 1; SUSPECT 1
[2016-02-22] MEDS: INSULIN ASPART [NOVOLOG] 3 ML PEN SC SCH ×7 (08:26→20:57)
[2016-02-22] MEDS: SALMETEROL/FLUTICASONE 250/50 INHA INH SCH ×2 (08:29→21:02)
[2016-02-22] MEDS: METOPROLOL (XL) 25 MG TAB PO SCH ×2 (08:43→20:43)
[2016-02-22] MEDS: ASPIRIN 81 MG TAB PO SCH (08:43)
--- NOTE | 2016-02-22 09:04 | PN ---
DATE: 02/22/2016 SUBJECTIVE: The patient is stable. No acute events overnight. No fevers, chills, nausea or vomitin g. OBJECTIVE: VITAL SIGNS: Temperature 112/54, respirations 19, pulse 74, temperature 98.5. I's AND O'S: The patient has 1.4 liters in, 2.4 liters out. HEENT: Head is normocephalic. NECK: Supple. HEART: Regular rate. LUNGS: Showed diminished breath sounds at the base. ABDOMEN: Soft, nontender to palpation. No rebound or guarding. EXTREMITIES: Negative for clubbing or cyanosis. No edema. DERMATOLOGIC: No rashes. MUSCULOSKELETAL: Have no joint effusion. NEUROLOGIC: No change in exam. MEDICATIONS: The patient's medication were reviewed. LABORATORY DATA: Showed sodium 137, potassium 4.0, chloride 99, BUN 53, creatinine 1.92, phosphorus 5.9. White count 23.1, hemoglobin 11.7, hematocrit 34.2, platelet count is 339. The patient's [address] st x-ray shows no acute findings. ASSESSMENT AND PLAN: 1. Nonoliguric acute kidney injury, with a previous baseline creatinine around 1.1 mg/dL. Etiology of acute kidney injury is secondary to hemodynamics, possible artifact, and diuretic therapy. The p atient's renal function continues to fluctuate between a creatinine of 1.8 to 2.0 mg/dL. At this po int, will hold diuretic therapy, as the patient appears euvolemic. Chest x-ray shows no pulmonary co ngestion. Would otherwise continue supportive care, renally dose all meds, and avoid nephrotoxins. The patient is at moderate risk for contrast-associated nephropathy. This was discussed with cardi ologist, Dr. Foster, who at this point wishes to defer cardiac catheterization. 2. Mild hyperkalemia secondary to acute kidney injury. Resolved. 3. Anemia of chronic disease. Continue to monitor hemoglobin and hematocrit levels. 4. Mineral bone disorder. The patient's phosphorus levels are mildly elevated secondary to acute k idney injury. No need for phosphate binders. Will continue to monitor. 5. Arrhythmia and wide complex tachycardia. The patient is in an amiodarone drip. Will continue. 6. Elevated troponin, [id number] myocardial infarction. Continue heparin drip, continue medi kristine management. Deferring cardiac catheterization in the setting of acute kidney injury. Follow up with cardiology. 7. Acute systolic heart failure. The patient appears euvolemic. Will hold diuretic therapy in the setting of acute kidney injury at this time and monitor. 8. Acute respiratory failure secondary to chronic obstructive pulmonary disease exacerbation and po ssible congestive heart failure. The patient is clinically improving. Continue medical management. 9. Hypertension. Continue the current blood pressure regimen. Dictated By: KELSY BEE/LEONARDO Conf#: [id number] DID#: [id number]
[2016-02-22] MEDS: HEPARIN 25000 UNITS/250 ML 250 ML IV SCH ×2 (09:31→10:30)
[2016-02-22] MEDS: ACETYLCYSTEINE 600 MG CAP PO SCH ×2 (09:37→20:42)
--- NOTE | 2016-02-22 11:41 | PN ---
Date/Time of Note Date/Time of Note DATE: 02/22/16 TIME: 11:30 Assessment/Plan VTE Prophylaxis VTE Prophylaxis Intervention: heparin Lines/Catheters IV C[facility]ter Type (from [facility]): Peripheral IV Urinary Cath still in place: No Assessment/Plan Chief Complaint/Hosp Course IMPRESSION: 1. Wide complex tachycardia, most likely consistent with nonsustained ventricular tachycardia versus aberrant supraventricular tachycardia, less likely. Cardiology has been consulted. We will follow his recommendation. Patient is status post amiodarone drip and has been transitioned to oral amiodarone and continue metoprolol. 2. Cardiomyopathy with severely depressed left ventricular ejection fraction last approximately 25% by echo January 2016. Continue losartan, Toprol, Lasix, strict I's and O's. 3. [id number] infarction with a history of atrial flutter and recent ventricular tachycardia . The patient will be continued on aspirin beta jack and statin, has been placed on heparin drip. Cardiology has been consulted. Plan for left heart catheterization when renal panel improves and back to baseline 4. Automatic implantable cardioverter defibrillator discharge per patient x3 Cardiology has been consulted, follow up his recommendations 5. Chronic obstructive pulmonary disease. Continue oxygen supplementation, breathing treatment, steroids 6. Shortness of breath. Likely secondary to COPD and CHF 7. Congestive heart failure, systolic, acute on chronic. As above 8. Anemia. Stable 9. Essential hypertension, well controlled on medical management. 10. Acute on chronic renal insufficiency. Nephrology has been consulted. Be cautious with nephrotoxic medication. - For deep venous thrombosis prophylaxis, on heparin. - For gastrointestinal prophylaxis, on Protonix. We will continue monitor patient closely further recommendation management treatment as clinical course Problems: Subjective 24 Hr Interval Summary Free Text/Dictation Patient denies of any chest pain or shortness of breath Able to tolerate oral intake No new event Exam/Review of Systems Vital Signs Vitals Vital Signs Date Time Temp Pulse Resp B/P Pulse Ox O2 Delivery O2 Flow Rate FiO2 02/22/16 11:23 98.5 97 20 108/75 95 02/21/16 20:00 Nasal Cannula 4.0 Intake and Output 02/21/16 02/21/16 02/22/16 15:00 23:00 07:00 Intake Total 1450 ml 182 ml Output Total 2200 ml 250 ml Balance -750 ml -68 ml Exam General: The patient is moderately overweight , Not in acute distress. HEENT: Atraumatic, normocephalic. The pupils are equal and round . Neck: Supple with full range of motion. Chest: Normal expansion of the thorax during inspiration Lungs: Clear to auscultation bilaterally Heart: Normal S1-S2, Regular rhythm and rate. Abdomen: Soft , nontender, nondistended , bowel sounds are present. Extremities: Normal to inspection, no edema no cyanosis Neurologic: Normal mental status,The patient is awake, alert and oriented . Results Result Diagram: 02/22/16 0600 02/22/16 0600 Results 24 hrs Laboratory Tests Test 02/21/16 11:41 02/21/16 17:50 02/21/16 21:35 02/21/16 22:18 Bedside Glucose 282 H 329 H 215 Activated Partial Thromboplast Time 57.1 H Test 02/22/16 06:00 02/22/16 08:14 Activated Partial Thromboplast Time 76.4 *H Anion Gap 18 H Basophils # 0.0 Basophils % 0.1 Blood Morphology Comment Blood Urea Nitrogen 53 H Calcium Level 9.2 Carbon Dioxide Level 25 Chloride Level 99 Creatinine 1.92 H Eosinophils # 0.0 Eosinophils % 0.0 Glucose Level 225 H Hematocrit 34.2 L Hemoglobin 11.7 L Lymphocytes # 0.9 Lymphocytes % 4.0 L Magnesium Level 2.4 Mean Corpuscular Hemoglobin 31.8 Mean Corpuscular Hemoglobin Concent 34.3 Mean Corpuscular Volume 92.6 Mean Platelet Volume 9.5 Monocytes # 0.5 Monocytes % 2.2 Neutrophils # 21.6 H Neutrophils % 93.7 H Nucleated Red Blood Cells # 0.0 Nucleated Red Blood Cells % 0.0 Phosphorus Level 5.9 H Platelet Count 339 Potassium Level 4.8 Red Blood Count 3.69 L Red Cell Distribution Width 15.1 H Sodium Level 137 White Blood Count 23.1 #H Bedside Glucose 222 H Medications Medications Current Medications Albuterol (Ventolin Hfa) 2 puff Q4H PRN INH WHEEZING AND RESP DISTRESS; Start 02/20/16 at 09:00 Atorvastatin Calcium (Lipitor) 10 mg QHS PO Last administered on 02/21/16t 22: 22; Admin Dose 10 MG; Start 02/20/16 at 21:00 Furosemide (Lasix) 20 mg DAILY PO ; Start 02/20/16 at 09:00; Status Future Hold Salmeterol Xinafoate/ Fluticasone (Advair 250/50 Diskus) 1 inh BID INH Last administered on 02/22/16 08:29; Admin Dose 1 INH; Start 02/20/16 at 09:00 Pantoprazole (Protonix Tab) 40 mg DAILY@06 PO Last administered on 02/22/16 05 :27; Admin Dose 40 MG; Start 02/21/16 at 06:00 Miscellaneous Information 1 each DAILY INHALATION ; Start 02/20/16 at 09:00; Status UNV Lorazepam (Ativan) 0.5 mg Q8H PRN PO ANXIETY; Start 02/20/16 at 09:00 Ondansetron HCl (Zofran Tab) 4 mg Q6H PRN PO NAUSEA AND/OR VOMITING; Start 01/24 at 09:00 Aspirin (Aspirin) 81 mg DAILY PO Last administered on 02/22/16 08:43; Admin Dose 81 MG; Start 02/20/16 at 09:00 Furosemide (Lasix) 20 mg BID IV Last administered on 02/21/16 22:19; Admin Dose 20 MG; Start 02/20/16 at 09:00; Status Future Hold Nitroglycerin (Nitroglycerin (Sl Tab) 0.4 Mg) 1 tab Q5M PRN SL CHEST PAIN; Start 02/20/16 at 09:00 Acetaminophen (Tylenol Tab) 650 mg Q6H PRN PO PAIN LEVEL 1-3 OR FEVER; Start at 09:00 Morphine Sulfate (morphine) 1 mg Q4H PRN IV PAIN LEVEL 7-10; Start 02/20/16 at 09:00 Docusate Sodium (Colace) 100 mg Q12H PRN PO CONSTIPATION; Start 02/20/16 at 09: 00 Miscellaneous Information 1 ea NOTE XX ; Start 02/20/16 at 13:30 Glucose (Glutose) 15 gm Q15M PRN PO DECREASED GLUCOSE; Start 02/20/16 at 13:30 Glucose (Glutose) 22.5 gm Q15M PRN PO DECREASED GLUCOSE; Start 02/20/16 at 13: 30 Dextrose (D50w Syringe) 25 ml Q15M PRN IV DECREASED GLUCOSE; Start 02/20/16 at 13:30 Dextrose (D50w Syringe) 50 ml Q15M PRN IV DECREASED GLUCOSE; Start 02/20/16 at 13:30 Glucagon (Glucagen) 1 mg Q15M PRN IM DECREASED GLUCOSE; Start 02/20/16 at 13:30 Glucose 15 gm 15 gm Q15M PRN BUCCAL DECREASED GLUCOSE; Start 02/20/16 at 13:30 Heparin Sodium (Porcine) (Heparin 62817 Units/250 ml) 250 ml @ 10 mls/hr Q24H IV Last administered on 02/22/16 09:31; Admin Dose 10 MLS/HR; Start 02/20/16 at 16:15 Miscellaneous Information (*Order Clarification Bulletin) MEDICATION REQUIRES CLARIFICATI... Q8H XX ; Start 02/20/16 at 18:30 Metoprolol Tartrate (Lopressor) 5 mg Q4H PRN IV ELEVATED HEART RATE; Start 01/24 at 21:00 Metoprolol Succinate (Toprol Xl) 25 mg BID PO Last administered on 02/22/16 08 :43; Admin Dose 25 MG; Start 02/20/16 at 21:30 Acetylcysteine (Nac) 600 mg BID PO Last administered on 02/22/16 09:37; Admin Dose 600 MG; Start 02/21/16 at 09:00 Amiodarone HCl (Cordarone) 200 mg Q8 PO Last administered on 02/22/16 05:28; Admin Dose 200 MG; Start 02/21/16 at 22:00 Hydralazine HCl (Apresoline) 10 mg Q12 PO Last administered on 02/22/16 08:42 ; Admin Dose 10 MG; Start 02/21/16 at 21:00 Insulin Glargine (Lantus) 20 unit QHS SC ; Start 02/22/16 at 21:00 Insulin Human NPH (Humulin N) 5 unit BID SC ; Start 02/22/16 at 21:00 Prednisone 20 mg 20 mg BID PO ; Start 02/22/16 at 21:00 Ceftriaxone Sodium (Rocephin) 50 ml @ 100 mls/hr Q24H IVPB ; Start 02/22/16 at 10:00 OSWALDO MIGUEL MD Feb 22, 2016 11:41
--- NOTE | 2016-02-22 12:33 | CONS ---
Date/Time of Note Date/Time of Note DATE: 02/22/16 TIME: 12:32 Consult Date/Type/Reason Admit Date/Time Feb 20, 2016 at 08:27 Initial Consult Date Type of Consultation: pulmonary Ordering Provider: OSWALDO MIGUEL MD Subjective Breathing improved Switch to by mouth amiodarone Remains hemodynamically stable Objective Vital Signs Date Time Temp Pulse Resp B/P Pulse Ox O2 Delivery O2 Flow Rate FiO2 02/22/16 11:23 98.5 97 20 108/75 95 02/21/16 20:00 Nasal Cannula 4.0 Intake and Output 02/21/16 02/21/16 02/22/16 15:00 23:00 07:00 Intake Total 1450 ml 182 ml Output Total 2200 ml 250 ml Balance -750 ml -68 ml PHYSICAL EXAMINATION: VITAL SIGNS: As above HEENT: Pupils are equal and reactive to light. Anicteric sclerae. Cushingoid facial features noted. NECK: Supple, no JVD noted. No cervical lymphadenopathy noted. No carotid bruits heard. LUNGS: Diminished breath sounds bilaterally with few scattered wheezes. CARDIOVASCULAR: S1 and S2 normal. ABDOMEN: Soft, obese, nontender. No organomegaly or masses noted. EXTREMITIES: No clubbing, cyanosis, or edema noted. NEUROLOGICAL: Awake and no focal deficits. Results/Medications Result Diagram: 02/22/16 0600 02/22/16 0600 Results 24 hrs Laboratory Tests Test 02/21/16 17:50 02/21/16 21:35 02/21/16 22:18 02/22/16 06:00 Bedside Glucose 329 H 215 Activated Partial Thromboplast Time 57.1 H 76.4 *H Anion Gap 18 H Basophils # 0.0 Basophils % 0.1 Blood Morphology Comment Blood Urea Nitrogen 53 H Calcium Level 9.2 Carbon Dioxide Level 25 Chloride Level 99 Creatinine 1.92 H Eosinophils # 0.0 Eosinophils % 0.0 Glucose Level 225 H Hematocrit 34.2 L Hemoglobin 11.7 L Lymphocytes # 0.9 Lymphocytes % 4.0 L Magnesium Level 2.4 Mean Corpuscular Hemoglobin 31.8 Mean Corpuscular Hemoglobin Concent 34.3 Mean Corpuscular Volume 92.6 Mean Platelet Volume 9.5 Monocytes # 0.5 Monocytes % 2.2 Neutrophils # 21.6 H Neutrophils % 93.7 H Nucleated Red Blood Cells # 0.0 Nucleated Red Blood Cells % 0.0 Phosphorus Level 5.9 H Platelet Count 339 Potassium Level 4.8 Red Blood Count 3.69 L Red Cell Distribution Width 15.1 H Sodium Level 137 White Blood Count 23.1 #H Test 02/22/16 08:14 Bedside Glucose 222 H Medications Current Medications Albuterol (Ventolin Hfa) 2 puff Q4H PRN INH WHEEZING AND RESP DISTRESS; Start 02/20/16 at 09:00 Atorvastatin Calcium (Lipitor) 10 mg QHS PO Last administered on 02/21/16 22: 22; Admin Dose 10 MG; Start 02/20/16 at 21:00 Furosemide (Lasix) 20 mg DAILY PO ; Start 02/20/16 at 09:00; Status Future Hold Salmeterol Xinafoate/ Fluticasone (Advair 250/50 Diskus) 1 inh BID INH Last administered on 02/22/16 08:29; Admin Dose 1 INH; Start 02/20/16 at 09:00 Pantoprazole (Protonix Tab) 40 mg DAILY@06 PO Last administered on 02/22/16 05 :27; Admin Dose 40 MG; Start 02/21/16 at 06:00 Miscellaneous Information 1 each DAILY INHALATION ; Start 02/20/16 at 09:00; Status UNV Lorazepam (Ativan) 0.5 mg Q8H PRN PO ANXIETY; Start 02/20/16 at 09:00 Ondansetron HCl (Zofran Tab) 4 mg Q6H PRN PO NAUSEA AND/OR VOMITING; Start 01/24 at 09:00 Aspirin (Aspirin) 81 mg DAILY PO Last administered on 02/22/16 08:43; Admin Dose 81 MG; Start 02/20/16 at 09:00 Furosemide (Lasix) 20 mg BID IV Last administered on 02/21/16 22:19; Admin Dose 20 MG; Start 02/20/16 at 09:00; Status Future Hold Nitroglycerin (Nitroglycerin (Sl Tab) 0.4 Mg) 1 tab Q5M PRN SL CHEST PAIN; Start 02/20/16 at 09:00 Acetaminophen (Tylenol Tab) 650 mg Q6H PRN PO PAIN LEVEL 1-3 OR FEVER; Start at 09:00 Morphine Sulfate (morphine) 1 mg Q4H PRN IV PAIN LEVEL 7-10; Start 02/20/16 at 09:00 Docusate Sodium (Colace) 100 mg Q12H PRN PO CONSTIPATION; Start 02/20/16 at 09: 00 Miscellaneous Information 1 ea NOTE XX ; Start 02/20/16 at 13:30 Glucose (Glutose) 15 gm Q15M PRN PO DECREASED GLUCOSE; Start 02/20/16 at 13:30 Glucose (Glutose) 22.5 gm Q15M PRN PO DECREASED GLUCOSE; Start 02/20/16 at 13: 30 Dextrose (D50w Syringe) 25 ml Q15M PRN IV DECREASED GLUCOSE; Start 02/20/16 at 13:30 Dextrose (D50w Syringe) 50 ml Q15M PRN IV DECREASED GLUCOSE; Start 02/20/16 at 13:30 Glucagon (Glucagen) 1 mg Q15M PRN IM DECREASED GLUCOSE; Start 02/20/16 at 13:30 Glucose 15 gm 15 gm Q15M PRN BUCCAL DECREASED GLUCOSE; Start 02/20/16 at 13:30 Heparin Sodium (Porcine) (Heparin 34400 Units/250 ml) 250 ml @ 10 mls/hr Q24H IV Last administered on 02/22/16 09:31; Admin Dose 10 MLS/HR; Start 02/20/16 at 16:15 Miscellaneous Information (*Order Clarification Bulletin) MEDICATION REQUIRES CLARIFICATI... Q8H XX ; Start 02/20/16 at 18:30 Metoprolol Tartrate (Lopressor) 5 mg Q4H PRN IV ELEVATED HEART RATE; Start 01/24 at 21:00 Metoprolol Succinate (Toprol Xl) 25 mg BID PO Last administered on 02/22/16 08 :43; Admin Dose 25 MG; Start 02/20/16 at 21:30 Acetylcysteine (Nac) 600 mg BID PO Last administered on 02/22/16 09:37; Admin Dose 600 MG; Start 02/21/16 at 09:00 Amiodarone HCl (Cordarone) 200 mg Q8 PO Last administered on 02/22/16 05:28; Admin Dose 200 MG; Start 02/21/16 at 22:00 Hydralazine HCl (Apresoline) 10 mg Q12 PO Last administered on 02/22/16 08:42 ; Admin Dose 10 MG; Start 02/21/16 at 21:00 Insulin Glargine (Lantus) 20 unit QHS SC ; Start 02/22/16 at 21:00 Insulin Human NPH (Humulin N) 5 unit BID SC ; Start 02/22/16 at 21:00 Prednisone 20 mg 20 mg BID PO ; Start 02/22/16 at 21:00 Ceftriaxone Sodium (Rocephin) 50 ml @ 100 mls/hr Q24H IVPB ; Start 02/22/16 at 10:00 Assessment/Plan Chief Complaint/Hosp Course IMPRESSION: A 75-year-old male with: 1. Wide QRS complex tachycardia, now reverted to sinus rhythm. 2. Non-STEMI. 3. Severe chronic obstructive pulmonary disease. 4. History of congestive heart failure. 5. History of atrial fibrillation. 6. Acute on chronic renal insufficiency. 7. History of hypertension. RECOMMENDATIONS: 1. Cardiac recommendations, with rate control 2. Nephrology recommendations noted. 3. Taper steroids. 4. Bronchodilators. 5. Oxygen. Problems: BYRON GUTIERREZ MD, [facility] Feb 22, 2016 12:33
[2016-02-22] MEDS: CEFTRIAXONE 1 GM/50 ML (PMX) 50 ML IVPB SCH (13:01)
--- NOTE | 2016-02-22 13:22 | CONS ---
Date/Time of Note Date/Time of Note DATE: 02/22/16 TIME: 13:12 Assessment/Plan Assessment/Plan Chief Complaint/Hosp Course IMPRESSION: 1. Wide complex tachycardia, most likely consistent with nonsustained ventricular tachycardia versus aberrant supraventricular tachycardia, less likely.-improved on IV amio/BB 2. Cardiomyopathy with severely depressed left ventricular ejection fraction last approximately 25% by echo January 2016. 3. Positive troponin in the setting of recurrent bouts of wide complex tachycardia.-now downtrending 4. Automatic implantable cardioverter defibrillator discharge per patient x3 this morning. s/p interrogation revealing ICD shock for SVT not VT 5. Chronic obstructive pulmonary disease. 6. Shortness of breath. 7. Congestive heart failure, systolic, acute on chronic. 8. Anemia. 9.Renal failure acute on chronic Recc: -Tele -Continue BB -Continue po amiodarone -low dose hydralazine afterload reduction in lieu of ACEI given renal failure -Continue asa -Follow renal fxn closely with possible cath once creatnine improved -Contiue steroids/brochodilators/steroids -Continue gentle lasix diuresis Problems: Consultation Date/Type/Reason Admit Date/Time Feb 20, 2016 at 08:27 Initial Consult Date 02/20/16 Type of Consultation: Cardiology Reason for Consultation NSVT Referring Provider: OSAWLDO MIGUEL MD Exam/Review of Systems Vital Signs Vitals Vital Signs Date Time Temp Pulse Resp B/P Pulse Ox O2 Delivery O2 Flow Rate FiO2 02/22/16 12:47 84 02/22/16 11:23 98.5 20 108/75 95 02/21/16 20:00 Nasal Cannula 4.0 Intake and Output 02/21/16 02/21/16 02/22/16 15:00 23:00 07:00 Intake Total 1450 ml 182 ml Output Total 2200 ml 250 ml Balance -750 ml -68 ml Exam Review of Systems: CONSTITUTIONAL: No fevers, chills. PULMONARY: No sob CARDIOVASCULAR: No chest pain/palpitations GASTROINTESTINAL: No nausea/vomiting. GENITOURINARY: No hematuria/dysuria. MUSCULOSKELETAL: No myagias/arthalgias. PSYCHIATRIC: The patient denies depression. NEUROLOGIC: No weakness Constitutional: alert, oriented Psych: no complaints ENMT: mucosa pink and moist Neck: jvd (8-9 cm water), supple Respiratory: diminished breath sounds (at bases/B) Cardiovascular: regular rate and rhythm Gastrointestinal: non-tender, soft Musculoskeletal: muscle tone (normal) Extremities: edema (none) Neurological: other (No focal deficits) Results Result Diagram: 02/22/16 0600 02/22/16 0600 Results 24 hrs Laboratory Tests Test 02/21/16 17:50 02/21/16 21:35 02/21/16 22:18 02/22/16 06:00 Bedside Glucose 329 H 215 Activated Partial Thromboplast Time 57.1 H 76.4 *H Anion Gap 18 H Basophils # 0.0 Basophils % 0.1 Blood Morphology Comment Blood Urea Nitrogen 53 H Calcium Level 9.2 Carbon Dioxide Level 25 Chloride Level 99 Creatinine 1.92 H Eosinophils # 0.0 Eosinophils % 0.0 Glucose Level 225 H Hematocrit 34.2 L Hemoglobin 11.7 L Lymphocytes # 0.9 Lymphocytes % 4.0 L Magnesium Level 2.4 Mean Corpuscular Hemoglobin 31.8 Mean Corpuscular Hemoglobin Concent 34.3 Mean Corpuscular Volume 92.6 Mean Platelet Volume 9.5 Monocytes # 0.5 Monocytes % 2.2 Neutrophils # 21.6 H Neutrophils % 93.7 H Nucleated Red Blood Cells # 0.0 Nucleated Red Blood Cells % 0.0 Phosphorus Level 5.9 H Platelet Count 339 Potassium Level 4.8 Red Blood Count 3.69 L Red Cell Distribution Width 15.1 H Sodium Level 137 White Blood Count 23.1 #H Test 02/22/16 08:14 Bedside Glucose 222 H Medications Medications Current Medications Albuterol (Ventolin Hfa) 2 puff Q4H PRN INH WHEEZING AND RESP DISTRESS; Start 02/20/16 at 09:00 Atorvastatin Calcium (Lipitor) 10 mg QHS PO Last administered on 02/21/16 22: 22; Admin Dose 10 MG; Start 02/20/16 at 21:00 Furosemide (Lasix) 20 mg DAILY PO ; Start 02/20/16 at 09:00; Status Future Hold Salmeterol Xinafoate/ Fluticasone (Advair 250/50 Diskus) 1 inh BID INH Last administered on 02/22/16 08:29; Admin Dose 1 INH; Start 02/20/16 at 09:00 Pantoprazole (Protonix Tab) 40 mg DAILY@06 PO Last administered on 02/22/16 05 :27; Admin Dose 40 MG; Start 02/21/16 at 06:00 Miscellaneous Information 1 each DAILY INHALATION ; Start 02/20/16 at 09:00; Status UNV Lorazepam (Ativan) 0.5 mg Q8H PRN PO ANXIETY; Start 02/20/16 at 09:00 Ondansetron HCl (Zofran Tab) 4 mg Q6H PRN PO NAUSEA AND/OR VOMITING; Start 01/24 at 09:00 Aspirin (Aspirin) 81 mg DAILY PO Last administered on 02/22/16 08:43; Admin Dose 81 MG; Start 02/20/16 at 09:00 Furosemide (Lasix) 20 mg BID IV Last administered on 02/21/16 22:19; Admin Dose 20 MG; Start 02/20/16 at 09:00; Status Future Hold Nitroglycerin (Nitroglycerin (Sl Tab) 0.4 Mg) 1 tab Q5M PRN SL CHEST PAIN; Start 02/20/16 at 09:00 Acetaminophen (Tylenol Tab) 650 mg Q6H PRN PO PAIN LEVEL 1-3 OR FEVER; Start at 09:00 Morphine Sulfate (morphine) 1 mg Q4H PRN IV PAIN LEVEL 7-10; Start 02/20/16 at 09:00 Docusate Sodium (Colace) 100 mg Q12H PRN PO CONSTIPATION; Start 02/20/16 at 09: 00 Miscellaneous Information 1 ea NOTE XX ; Start 02/20/16 at 13:30 Glucose (Glutose) 15 gm Q15M PRN PO DECREASED GLUCOSE; Start 02/20/16 at 13:30 Glucose (Glutose) 22.5 gm Q15M PRN PO DECREASED GLUCOSE; Start 02/20/16 at 13: 30 Dextrose (D50w Syringe) 25 ml Q15M PRN IV DECREASED GLUCOSE; Start 02/20/16 at 13:30 Dextrose (D50w Syringe) 50 ml Q15M PRN IV DECREASED GLUCOSE; Start 02/20/16 at 13:30 Glucagon (Glucagen) 1 mg Q15M PRN IM DECREASED GLUCOSE; Start 02/20/16 at 13:30 Glucose 15 gm 15 gm Q15M PRN BUCCAL DECREASED GLUCOSE; Start 02/20/16 at 13:30 Heparin Sodium (Porcine) (Heparin 39718 Units/250 ml) 250 ml @ 10 mls/hr Q24H IV Last administered on 02/22/16 09:31; Admin Dose 10 MLS/HR; Start 02/20/16 at 16:15 Miscellaneous Information (*Order Clarification Bulletin) MEDICATION REQUIRES CLARIFICATI... Q8H XX ; Start 02/20/16 at 18:30 Metoprolol Tartrate (Lopressor) 5 mg Q4H PRN IV ELEVATED HEART RATE; Start 01/24 at 21:00 Metoprolol Succinate (Toprol Xl) 25 mg BID PO Last administered on 02/22/16 08 :43; Admin Dose 25 MG; Start 02/20/16 at 21:30 Acetylcysteine (Nac) 600 mg BID PO Last administered on 02/22/16 09:37; Admin Dose 600 MG; Start 02/21/16 at 09:00 Amiodarone HCl (Cordarone) 200 mg Q8 PO Last administered on 02/22/16 05:28; Admin Dose 200 MG; Start 02/21/16 at 22:00 Hydralazine HCl (Apresoline) 10 mg Q12 PO Last administered on 02/22/16 08:42 ; Admin Dose 10 MG; Start 02/21/16 at 21:00 Insulin Glargine (Lantus) 20 unit QHS SC ; Start 02/22/16 at 21:00 Insulin Human NPH (Humulin N) 5 unit BID SC ; Start 02/22/16 at 21:00 Prednisone 20 mg 20 mg BID PO ; Start 02/22/16 at 21:00 Ceftriaxone Sodium (Rocephin) 50 ml @ 100 mls/hr Q24H IVPB Last administered on 02/22/16 13:01; Admin Dose 100 MLS/HR; Start 02/22/16 at 10:00 CINTHIA GOLDBERG Feb 22, 2016 13:21
[2016-02-22] MEDS ORDERED: HEPARIN 1000 UNITS/ML 10 ML INJ ONE (20:13)
[2016-02-22] MEDS ORDERED: HEPARIN 1000 UNITS/ML 10 ML INJ IV ONE (20:30)
[2016-02-22] MEDS: predniSONE 20 MG TAB PO SCH (20:42)
[2016-02-22] MEDS: ATORVASTATIN 10 MG TAB PO SCH (20:42)
[2016-02-22] MEDS: INSULIN GLARGINE [LANtus] 3 ML PEN SC SCH (20:58)
[2016-02-22] MEDS ORDERED: NPH, HUMAN INSULIN ISOPHANE 3ML VIAL SC SCH (21:00)
[2016-02-23] VITALS (14 sets, daily range): BP systolic 101–124; BP diastolic 48–62; PULSE 66–188; RESP 16–20
[2016-02-23] MEDS: [UNRECOGNIZED DRUG - OTHER] XX SCH ×3 (02:30→18:30)
[2016-02-23] MEDS: UMECLIDINIUM XX SCH ×3 (02:30→18:30)
[2016-02-23 06:13] LABS: HEMATOCRIT 34.5 % (42.0-52.0); HEMOGLOBIN 11.7 g/dl (14.0-18.0); LYMPHOCYTES # 0.7 10^3/ul (0.8-2.9); LYMPHOCYTES % 3.7 % (15.0-51.0); MEAN CORPUSCULAR HEMOGLOBIN 31.4 pg (29.0-33.0); MEAN CORPUSCULAR HGB CONC 33.8 g/dl (32.0-37.0); MEAN CORPUSCULAR VOLUME 92.8 fl (82.0-101.0); MEAN PLATELET VOLUME 9.3 fl (7.4-10.4); MONOCYTE # 0.8 10^3/ul (0.3-0.9); NEUTROPHIL # 18.7 10^3/ul (1.6-7.5); NEUTROPHILS % 92.3 % (39.0-77.0); PLATELET COUNT 316 10^3/UL (140-440); RED BLOOD COUNT 3.72 10^6/ul (4.70-6.10); RED CELL DISTRIBUTION WIDTH 14.9 % (11.5-14.5); UNCORRECTED WBC 20.2 10^3/ul (4.8-10.8); WHITE BLOOD COUNT 20.2 10^3/ul (4.8-10.8)
[2016-02-23] MEDS: PANTOPRAZOLE (EC) 40 MG TAB PO SCH (06:25)
[2016-02-23] MEDS: AMIODARONE 200 MG TAB PO SCH ×3 (06:25→21:43)
[2016-02-23 06:26] LABS: POTASSIUM 5.1 mmol/L (3.5-5.1)
[2016-02-23 06:29] LABS: CREATININE 1.79 mg/dl (0.61-1.24)
[2016-02-23 06:30] LABS: CALCIUM 9.4 mg/dl (8.4-10.2); MAGNESIUM 2.6 mg/dl (1.7-2.5); PHOSPHORUS 4.9 mg/dl (2.5-4.9)
[2016-02-23 06:57] LABS: CONDITION 1; LH ANALYZER COMMENTS 1
[2016-02-23] MEDS: NPH, HUMAN INSULIN ISOPHANE 3ML VIAL SC SCH ×3 (07:25→18:16)
[2016-02-23] MEDS: INSULIN ASPART [NOVOLOG] 3 ML PEN SC SCH ×7 (08:17→21:53)
--- NOTE | 2016-02-23 09:22 | PN ---
Date/Time of Note Date/Time of Note DATE: 02/23/16 TIME: 09:18 Assessment/Plan VTE Prophylaxis VTE Prophylaxis Intervention: heparin Lines/Catheters IV [facility] Type (from [facility]): Peripheral IV Urinary Cath still in place: No Assessment/Plan Chief Complaint/Hosp Course IMPRESSION: 1. Wide complex tachycardia, most likely consistent with nonsustained ventricular tachycardia versus aberrant supraventricular tachycardia, less likely. Cardiology has been consulted. We will follow his recommendation. Patient is status post amiodarone drip and has been transitioned to oral amiodarone and continue metoprolol. Plan for left heart catheterization when renal panel improves 2. Cardiomyopathy with severely depressed left ventricular ejection fraction last approximately 25% by echo January 2016. Continue losartan, Toprol, Lasix, strict I's and O's. 3. Vyk-WI-[id number] infarction with a history of atrial flutter and recent ventricular tachycardia . The patient will be continued on aspirin beta jack and statin, has been placed on heparin drip. Cardiology has been consulted. Plan for left heart catheterization when renal panel improves 4. Automatic implantable cardioverter defibrillator discharge per patient x3 Cardiology has been consulted, follow up his recommendations 5. Chronic obstructive pulmonary disease. Continue oxygen supplementation, breathing treatment, steroids 6. Shortness of breath. Likely secondary to COPD and CHF 7. Congestive heart failure, systolic, acute on chronic. As above 8. Anemia. Stable 9. Essential hypertension, well controlled on medical management. 10. Acute on chronic renal insufficiency. Nephrology has been consulted. Be cautious with nephrotoxic medication. 11. Diabetic mellitus, better controlled continue Lantus and since then the skeletal carb diet 12. Leukocytosis likely steroid-induced, patient is afebrile continue to monitor - For deep venous thrombosis prophylaxis, on heparin. - For gastrointestinal prophylaxis, on Protonix. We will continue monitor patient closely further recommendation management treatment as clinical course Problems: Subjective 24 Hr Interval Summary Free Text/Dictation Patient denies of any chest pain or shortness of breath No new episodes of AICD shock Tolerating Oral intake Ambulating without any difficulty Exam/Review of Systems Vital Signs Vitals Vital Signs Date Time Temp Pulse Resp B/P Pulse Ox O2 Delivery O2 Flow Rate FiO2 02/23/16 08:46 73 02/23/16 07:27 98.3 20 101/54 96 02/22/16 19:46 4.0 02/22/16 19:00 Nasal Cannula Intake and Output 02/22/16 02/22/16 02/23/16 15:00 23:00 07:00 Intake Total 50 ml 750 ml 560 ml Output Total 400 ml 550 ml 1100 ml Balance -350 ml 200 ml -540 ml Exam General: The patient is well-developed, Not in acute distress. HEENT: Atraumatic, normocephalic. The pupils are equal and round . Neck: Supple with full range of motion. Chest: Normal expansion of the thorax during inspiration Lungs: Clear to auscultation bilaterally Heart: Normal S1-S2, Regular rhythm and rate. Abdomen: Soft , nontender, nondistended , bowel sounds are present. Extremities: Normal to inspection, no edema no cyanosis Neurologic: Normal mental status,The patient is awake, alert and oriented . Results Result Diagram: 02/23/16 0543 02/23/16 0543 Results 24 hrs Laboratory Tests Test 02/22/16 16:40 02/22/16 17:23 02/22/16 20:40 02/23/16 01:56 Activated Partial Thromboplast Time 36.0 H Mix PTT Normal Plasma 1 Hour Mix PTT Normal Plasma Immediate Bedside Glucose 398 H 325 H 129 Test 02/23/16 05:43 02/23/16 08:12 Anion Gap 18 H Basophils # 0.0 Basophils % 0.0 Blood Morphology Comment Blood Urea Nitrogen 52 H Calcium Level 9.4 Carbon Dioxide Level 25 Chloride Level 101 Creatinine 1.79 H Eosinophils # 0.0 Eosinophils % 0.0 Glucose Level 139 # Hematocrit 34.5 L Hemoglobin 11.7 L Lymphocytes # 0.7 L Lymphocytes % 3.7 L Magnesium Level 2.6 H Mean Corpuscular Hemoglobin 31.4 Mean Corpuscular Hemoglobin Concent 33.8 Mean Corpuscular Volume 92.8 Mean Platelet Volume 9.3 Monocytes # 0.8 Monocytes % 4.0 Neutrophils # 18.7 H Neutrophils % 92.3 H Nucleated Red Blood Cells # 0.0 Nucleated Red Blood Cells % 0.0 Phosphorus Level 4.9 Platelet Count 316 Potassium Level 5.1 Red Blood Count 3.72 L Red Cell Distribution Width 14.9 H Sodium Level 139 White Blood Count 20.2 H Bedside Glucose 156 Medications Medications Current Medications Albuterol (Ventolin Hfa) 2 puff Q4H PRN INH WHEEZING AND RESP DISTRESS; Start 02/20/16 at 09:00 Atorvastatin Calcium (Lipitor) 10 mg QHS PO Last administered on 02/22/16 20: 42; Admin Dose 10 MG; Start 02/20/16 at 21:00 Furosemide (Lasix) 20 mg DAILY PO ; Start 02/20/16 at 09:00; Status Future Hold Salmeterol Xinafoate/ Fluticasone (Advair 250/50 Diskus) 1 inh BID INH Last administered on 02/22/16 21:02; Admin Dose 1 INH; Start 02/20/16 at 09:00 Pantoprazole (Protonix Tab) 40 mg DAILY@06 PO Last administered on 02/23/16 06 :25; Admin Dose 40 MG; Start 02/21/16 at 06:00 Miscellaneous Information 1 each DAILY INHALATION ; Start 02/20/16 at 09:00; Status UNV Lorazepam (Ativan) 0.5 mg Q8H PRN PO ANXIETY; Start 02/20/16 at 09:00 Ondansetron HCl (Zofran Tab) 4 mg Q6H PRN PO NAUSEA AND/OR VOMITING; Start 01/24 at 09:00 Aspirin (Aspirin) 81 mg DAILY PO Last administered on 02/22/16 08:43; Admin Dose 81 MG; Start 02/20/16 at 09:00 Furosemide (Lasix) 20 mg BID IV Last administered on 02/21/16 22:19; Admin Dose 20 MG; Start 02/20/16 at 09:00; Status Future Hold Nitroglycerin (Nitroglycerin (Sl Tab) 0.4 Mg) 1 tab Q5M PRN SL CHEST PAIN; Start 02/20/16 at 09:00 Acetaminophen (Tylenol Tab) 650 mg Q6H PRN PO PAIN LEVEL 1-3 OR FEVER; Start at 09:00 Morphine Sulfate (morphine) 1 mg Q4H PRN IV PAIN LEVEL 7-10; Start 02/20/16 at 09:00 Docusate Sodium (Colace) 100 mg Q12H PRN PO CONSTIPATION; Start 02/20/16 at 09: 00 Miscellaneous Information 1 ea NOTE XX ; Start 02/20/16 at 13:30 Glucose (Glutose) 15 gm Q15M PRN PO DECREASED GLUCOSE; Start 02/20/16 at 13:30 Glucose (Glutose) 22.5 gm Q15M PRN PO DECREASED GLUCOSE; Start 02/20/16 at 13: 30 Dextrose (D50w Syringe) 25 ml Q15M PRN IV DECREASED GLUCOSE; Start 02/20/16 at 13:30 Dextrose (D50w Syringe) 50 ml Q15M PRN IV DECREASED GLUCOSE; Start 02/20/16 at 13:30 Glucagon (Glucagen) 1 mg Q15M PRN IM DECREASED GLUCOSE; Start 02/20/16 at 13:30 Glucose (Glutose) 15 gm Q15M PRN BUCCAL DECREASED GLUCOSE; Start 02/20/16 at 13 :30 Miscellaneous Information (*Order Clarification Bulletin) MEDICATION REQUIRES CLARIFICATI... Q8H XX ; Start 02/20/16 at 18:30 Metoprolol Tartrate (Lopressor) 5 mg Q4H PRN IV ELEVATED HEART RATE; Start 01/24 at 21:00 Metoprolol Succinate (Toprol Xl) 25 mg BID PO Last administered on 02/22/16 20 :43; Admin Dose 25 MG; Start 02/20/16 at 21:30 Acetylcysteine (Nac) 600 mg BID PO Last administered on 02/22/16 20:42; Admin Dose 600 MG; Start 02/21/16 at 09:00 Amiodarone HCl (Cordarone) 200 mg Q8 PO Last administered on 02/23/16 06:25; Admin Dose 200 MG; Start 02/21/16 at 22:00 Hydralazine HCl (Apresoline) 10 mg Q12 PO Last administered on 02/22/16 08:42 ; Admin Dose 10 MG; Start 02/21/16 at 21:00 Insulin Glargine (Lantus) 20 unit QHS SC Last administered on 02/22/16 20:58; Admin Dose 20 UNIT; Start 02/22/16 at 21:00 Prednisone 20 mg 20 mg BID PO Last administered on 02/22/16 20:42; Admin Dose 20 MG; Start 02/22/16 at 21:00 Ceftriaxone Sodium (Rocephin) 50 ml @ 100 mls/hr Q24H IVPB Last administered on 02/22/16 13:01; Admin Dose 100 MLS/HR; Start 02/22/16 at 10:00 Heparin Sodium (Porcine) (Heparin (5000 Units/0.5 ml)) 5,000 unit BID SC ; Start 02/23/16 at 09:00 OSWALDO MIGUEL MD Feb 23, 2016 09:22
[2016-02-23] MEDS: SALMETEROL/FLUTICASONE 250/50 INHA INH SCH ×2 (10:22→21:44)
[2016-02-23] MEDS: ACETYLCYSTEINE 600 MG CAP PO SCH ×2 (10:23→21:43)
[2016-02-23] MEDS: METOPROLOL (XL) 25 MG TAB PO SCH ×2 (10:23→14:39)
[2016-02-23] MEDS: ASPIRIN 81 MG TAB PO SCH (10:23)
[2016-02-23] MEDS: predniSONE 20 MG TAB PO SCH (10:23)
[2016-02-23] MEDS: HEPARIN 5,000 UNIT/0.5 ML SYG SC SCH ×2 (10:24→21:52)
[2016-02-23] MEDS: CEFTRIAXONE 1 GM/50 ML (PMX) 50 ML IVPB SCH (10:24)
--- NOTE | 2016-02-23 14:35 | CONS ---
Date/Time of Note Date/Time of Note DATE: 02/23/16 TIME: 14:33 Assessment/Plan Assessment/Plan Chief Complaint/Hosp Course IMPRESSION: 1. Wide complex tachycardia, most likely consistent with nonsustained ventricular tachycardia versus aberrant supraventricular tachycardia, less likely.-improved on IV amio/BB 2. Cardiomyopathy with severely depressed left ventricular ejection fraction last approximately 25% by echo January 2016. 3. Positive troponin in the setting of recurrent bouts of wide complex tachycardia.-now downtrending 4. Automatic implantable cardioverter defibrillator discharge per patient x3 this morning. s/p interrogation revealing ICD shock for SVT not VT 5. Chronic obstructive pulmonary disease. 6. Shortness of breath. 7. Congestive heart failure, systolic, acute on chronic. 8. Anemia. 9.Renal failure acute on chronic Recc: -Tele -Continue BB -Continue po amiodarone -low dose hydralazine afterload reduction in lieu of ACEI given renal failure -Continue asa -Follow renal fxn closely with possible cath once creatnine improved -Contiue steroids/brochodilators/steroids -Continue gentle lasix diuresis Problems: Consultation Date/Type/Reason Admit Date/Time Feb 20, 2016 at 08:27 Initial Consult Date 02/20/16 Type of Consultation: Cardiology Reason for Consultation NSVT Referring Provider: OSWALDO MIGUEL MD Exam/Review of Systems Vital Signs Vitals Vital Signs Date Time Temp Pulse Resp B/P Pulse Ox O2 Delivery O2 Flow Rate FiO2 02/23/16 12:24 73 02/23/16 11:15 98.1 19 118/55 95 02/22/16 19:46 4.0 02/22/16 19:00 Nasal Cannula Intake and Output 02/22/16 02/22/16 02/23/16 15:00 23:00 07:00 Intake Total 50 ml 750 ml 560 ml Output Total 400 ml 550 ml 1100 ml Balance -350 ml 200 ml -540 ml Exam Review of Systems: CONSTITUTIONAL: No fevers, chills. PULMONARY: Mild sob CARDIOVASCULAR: No chest pain/palpitations GASTROINTESTINAL: No nausea/vomiting. GENITOURINARY: No hematuria/dysuria. MUSCULOSKELETAL: No myagias/arthalgias. PSYCHIATRIC: The patient denies depression. NEUROLOGIC: No weakness Constitutional: alert, oriented Psych: no complaints Head: normocephalic ENMT: mucosa pink and moist Neck: jvd (9 cm water), supple Respiratory: diminished breath sounds Cardiovascular: regular rate and rhythm Gastrointestinal: non-tender, soft Musculoskeletal: muscle tone Extremities: normal pulses Neurological: other (No focal deficits) Results Result Diagram: 02/23/16 0543 02/23/16 0543 Results 24 hrs Laboratory Tests Test 02/22/16 16:40 02/22/16 17:23 02/22/16 20:40 02/23/16 01:56 Activated Partial Thromboplast Time 36.0 H Mix PTT Normal Plasma 1 Hour Mix PTT Normal Plasma Immediate Bedside Glucose 398 H 325 H 129 Test 02/23/16 05:43 02/23/16 08:12 02/23/16 12:41 Anion Gap 18 H Basophils # 0.0 Basophils % 0.0 Blood Morphology Comment Blood Urea Nitrogen 52 H Calcium Level 9.4 Carbon Dioxide Level 25 Chloride Level 101 Creatinine 1.79 H Eosinophils # 0.0 Eosinophils % 0.0 Glucose Level 139 # Hematocrit 34.5 L Hemoglobin 11.7 L Lymphocytes # 0.7 L Lymphocytes % 3.7 L Magnesium Level 2.6 H Mean Corpuscular Hemoglobin 31.4 Mean Corpuscular Hemoglobin Concent 33.8 Mean Corpuscular Volume 92.8 Mean Platelet Volume 9.3 Monocytes # 0.8 Monocytes % 4.0 Neutrophils # 18.7 H Neutrophils % 92.3 H Nucleated Red Blood Cells # 0.0 Nucleated Red Blood Cells % 0.0 Phosphorus Level 4.9 Platelet Count 316 Potassium Level 5.1 Red Blood Count 3.72 L Red Cell Distribution Width 14.9 H Sodium Level 139 White Blood Count 20.2 H Bedside Glucose 156 235 H Medications Medications Current Medications Albuterol (Ventolin Hfa) 2 puff Q4H PRN INH WHEEZING AND RESP DISTRESS; Start 02/20/16 at 09:00 Atorvastatin Calcium (Lipitor) 10 mg QHS PO Last administered on 02/22/16 20: 42; Admin Dose 10 MG; Start 02/20/16 at 21:00 Furosemide (Lasix) 20 mg DAILY PO ; Start 02/20/16 at 09:00; Status Future Hold Salmeterol Xinafoate/ Fluticasone (Advair 250/50 Diskus) 1 inh BID INH Last administered on 02/23/16 10:22; Admin Dose 1 INH; Start 02/20/16 at 09:00 Pantoprazole (Protonix Tab) 40 mg DAILY@06 PO Last administered on 02/23/16 06 :25; Admin Dose 40 MG; Start 02/21/16 at 06:00 Miscellaneous Information 1 each DAILY INHALATION ; Start 02/20/16 at 09:00; Status UNV Lorazepam (Ativan) 0.5 mg Q8H PRN PO ANXIETY; Start 02/20/16 at 09:00 Ondansetron HCl (Zofran Tab) 4 mg Q6H PRN PO NAUSEA AND/OR VOMITING; Start 01/24 at 09:00 Aspirin (Aspirin) 81 mg DAILY PO Last administered on 02/23/16 10:23; Admin Dose 81 MG; Start 02/20/16 at 09:00 Furosemide (Lasix) 20 mg BID IV Last administered on 02/21/16 22:19; Admin Dose 20 MG; Start 02/20/16 at 09:00; Status Future Hold Nitroglycerin (Nitroglycerin (Sl Tab) 0.4 Mg) 1 tab Q5M PRN SL CHEST PAIN; Start 02/20/16 at 09:00 Acetaminophen (Tylenol Tab) 650 mg Q6H PRN PO PAIN LEVEL 1-3 OR FEVER; Start at 09:00 Morphine Sulfate (morphine) 1 mg Q4H PRN IV PAIN LEVEL 7-10; Start 02/20/16 at 09:00 Docusate Sodium (Colace) 100 mg Q12H PRN PO CONSTIPATION; Start 02/20/16 at 09: 00 Miscellaneous Information 1 ea NOTE XX ; Start 02/20/16 at 13:30 Glucose (Glutose) 15 gm Q15M PRN PO DECREASED GLUCOSE; Start 02/20/16 at 13:30 Glucose (Glutose) 22.5 gm Q15M PRN PO DECREASED GLUCOSE; Start 02/20/16 at 13: 30 Dextrose (D50w Syringe) 25 ml Q15M PRN IV DECREASED GLUCOSE; Start 02/20/16 at 13:30 Dextrose (D50w Syringe) 50 ml Q15M PRN IV DECREASED GLUCOSE; Start 02/20/16 at 13:30 Glucagon (Glucagen) 1 mg Q15M PRN IM DECREASED GLUCOSE; Start 02/20/16 at 13:30 Glucose (Glutose) 15 gm Q15M PRN BUCCAL DECREASED GLUCOSE; Start 02/20/16 at 13 :30 Miscellaneous Information (*Order Clarification Bulletin) MEDICATION REQUIRES CLARIFICATI... Q8H XX ; Start 02/20/16 at 18:30 Metoprolol Tartrate (Lopressor) 5 mg Q4H PRN IV ELEVATED HEART RATE; Start 01/24 at 21:00 Metoprolol Succinate (Toprol Xl) 25 mg BID PO Last administered on 02/22/16 20 :43; Admin Dose 25 MG; Start 02/20/16 at 21:30 Acetylcysteine (Nac) 600 mg BID PO Last administered on 02/23/16 10:23; Admin Dose 600 MG; Start 02/21/16 at 09:00 Amiodarone HCl (Cordarone) 200 mg Q8 PO Last administered on 02/23/16 06:25; Admin Dose 200 MG; Start 02/21/16 at 22:00 Hydralazine HCl (Apresoline) 10 mg Q12 PO Last administered on 02/23/16 10:22 ; Admin Dose 10 MG; Start 02/21/16 at 21:00 Insulin Glargine 20 unit 20 unit QHS SC Last administered on 02/22/16 20:58; Admin Dose 20 UNIT; Start 02/22/16 at 21:00 Ceftriaxone Sodium (Rocephin) 50 ml @ 100 mls/hr Q24H IVPB Last administered on 02/23/16 10:24; Admin Dose 100 MLS/HR; Start 02/22/16 at 10:00 Heparin Sodium (Porcine) (Heparin (5000 Units/0.5 ml)) 5,000 unit BID SC Last administered on 02/23/16 10:24; Admin Dose 5,000 UNIT; Start 02/23/16 at 09:00 Prednisone (Prednisone) 20 mg DAILY PO ; Start 02/24/16 at 09:00 CINTHIA GOLDBERG Feb 23, 2016 14:34
--- NOTE | 2016-02-23 15:37 | PN ---
DATE: 02/23/2016 SUBJECTIVE: The patient is clinically stable, resting well on 2 liters nasal cannula. No hemoptysi s, hematemesis or hematochezia. No acute events overnight. OBJECTIVE: VITAL SIGNS: Blood pressure is 101/54, respirations 20, pulse 72, temperature 98.3. HEENT: Head is normocephalic. NECK: Supple. HEART: Regular rate. LUNGS: Show diminished breath sounds at base. ABDOMEN: Soft, nontender to palpation. No rebound or guarding. EXTREMITIES: Negative for clubbing, cyanosis, no edema. DERMATOLOGIC: No rashes. MUSCULOSKELETAL: No joint effusions. NEUROLOGIC: No change in exam. MEDICATIONS: Reviewed. LABORATORY DATA: Shows sodium 139, potassium 5.1, chloride 101, BUN 52, creatinine 1.79, magnesium 2.6. White count 20.2, hemoglobin 11.7, hematocrit 34.5, platelet count is 316. ASSESSMENT AND PLAN: 1. Nonoliguric acute kidney injury with previous baseline creatinine 1.1 mg/dL. Etiology of acute kidney injury is secondary to hemodynamics. Renal function has been improving after holding diureti c therapy. At this point, continue current treatment plan, supportive care, renally dose all meds, avoid nephrotoxins. 2. Mild hyperkalemia, resolved. 3. Anemia of chronic disease. Continue to monitor H and H levels. 4. Mineral bone disorder to monitor calcium and phosphorus levels. Phosphorus levels have been imp roving. No need for binders. 2. Sinus arrhythmia requiring complex tachycardia. The patient is on amiodarone. Continue. 3. Non-ST elevation myocardial infarction. Continue current medical management cardiac kelli terization in the setting of acute kidney injury. 4. Acute systolic heart failure. The patient appears euvolemic. Continue to monitor. 5. Respiratory failure secondary to chronic obstructive pulmonary disease exacerbation, congestive heart failure. Clinically improving. Continue medical management. 6. Hypertension. Continue current blood pressure regimen. Dictated By: KELSY BEE/LEONARDO Conf#: [id number] DID#: [id number]
--- NOTE | 2016-02-23 18:16 | PN ---
DATE: 02/23/2016 SUBJECTIVE: The patient clinically remains stable. No new events. Awake, alert, comfortable, in n o respiratory distress. PHYSICAL EXAMINATION: VITAL SIGNS: Temperature 98, pulse is 73, blood pressure 118/55, O2 saturation 95% on nasal cannula . NECK: Supple. No JVD or lymphadenopathy. CARDIAC: S1, S2. No added sounds or murmurs. CHEST: Diminished air entry bilaterally. ABDOMEN: Soft, nontender. No guarding or rebound. EXTREMITIES: No cyanosis, clubbing, edema. NEUROLOGIC: Grossly intact. No focal deficits. LABORATORY DATA: White count 20, hemoglobin 11.7, platelets 316. BUN 52, creatinine 1.75. IMPRESSION AND PLAN: 1. Wide complex tachycardia, improved with amiodarone and beta-jack. 2. Decreased ejection fraction with cardiomyopathy. 3. Chronic obstructive pulmonary disease with recent exacerbation. PLAN: 1. Continue cardiac recommendations with amiodarone, beta-jack. 2. Continue BP management with hydralazine. TIMMY inhibitor held secondary to worsening creatinine. 3. Decrease steroids. 4. Bronchodilators. 5. DVT and GI prophylaxis. Dictated By: BYRON GUTIERREZ MD SV/NTS Conf#: [id number] DID#: [id number] CC: OSWALDO MIGUEL MD;*[facility]*
[2016-02-23] MEDS: ATORVASTATIN 10 MG TAB PO SCH (21:43)
[2016-02-23] MEDS: INSULIN GLARGINE [LANtus] 3 ML PEN SC SCH (21:53)
[2016-02-24] VITALS (11 sets, daily range): BP systolic 109–133; BP diastolic 55–74; PULSE 62–70; RESP 16–20
[2016-02-24] MEDS: UMECLIDINIUM XX SCH ×3 (02:30→17:58)
[2016-02-24] MEDS: [UNRECOGNIZED DRUG - OTHER] XX SCH ×3 (02:30→17:58)
[2016-02-24] MEDS: PANTOPRAZOLE (EC) 40 MG TAB PO SCH (05:30)
[2016-02-24] MEDS: AMIODARONE 200 MG TAB PO SCH ×3 (05:30→21:05)
[2016-02-24 05:40] LABS: BASOPHILS % 0.3 % (0.0-2.0); HEMATOCRIT 34.4 % (42.0-52.0); HEMOGLOBIN 11.9 g/dl (14.0-18.0); LYMPHOCYTES # 1.1 10^3/ul (0.8-2.9); LYMPHOCYTES % 7.2 % (15.0-51.0); MEAN CORPUSCULAR HEMOGLOBIN 32.2 pg (29.0-33.0); MEAN CORPUSCULAR HGB CONC 34.5 g/dl (32.0-37.0); MEAN CORPUSCULAR VOLUME 93.4 fl (82.0-101.0); MONOCYTE # 1.1 10^3/ul (0.3-0.9); MONOCYTES % 7.4 % (0.0-11.0); NEUTROPHIL # 12.5 10^3/ul (1.6-7.5); NEUTROPHILS % 85.1 % (39.0-77.0); PLATELET COUNT 313 10^3/UL (140-440); RED BLOOD COUNT 3.69 10^6/ul (4.70-6.10); UNCORRECTED WBC 14.7 10^3/ul (4.8-10.8); WHITE BLOOD COUNT 14.7 10^3/ul (4.8-10.8)
[2016-02-24 05:51] LABS: CONDITION 1; LH ANALYZER COMMENTS 1
[2016-02-24 06:22] LABS: POTASSIUM 4.4 mmol/L (3.5-5.1)
[2016-02-24 06:25] LABS: CREATININE 1.48 mg/dl (0.61-1.24); PHOSPHORUS 4.2 mg/dl (2.5-4.9)
[2016-02-24 06:26] LABS: CALCIUM 9.4 mg/dl (8.4-10.2); MAGNESIUM 2.5 mg/dl (1.7-2.5)
[2016-02-24] MEDS: INSULIN ASPART [NOVOLOG] 3 ML PEN SC SCH ×7 (07:54→20:59)
[2016-02-24] MEDS: CEFTRIAXONE 1 GM/50 ML (PMX) 50 ML IVPB SCH (09:17)
[2016-02-24] MEDS: SALMETEROL/FLUTICASONE 250/50 INHA INH SCH ×2 (09:17→20:55)
[2016-02-24] MEDS: METOPROLOL (XL) 25 MG TAB PO SCH ×2 (09:18→20:54)
[2016-02-24] MEDS: ASPIRIN 81 MG TAB PO SCH (09:18)
[2016-02-24] MEDS: predniSONE 20 MG TAB PO SCH (09:18)
[2016-02-24] MEDS: ACETYLCYSTEINE 600 MG CAP PO SCH ×2 (09:18→20:51)
[2016-02-24] MEDS: NPH, HUMAN INSULIN ISOPHANE 3ML VIAL SC SCH ×3 (09:21→17:54)
[2016-02-24] MEDS: HEPARIN 5,000 UNIT/0.5 ML SYG SC SCH ×2 (09:21→21:00)
--- NOTE | 2016-02-24 13:06 | CONS ---
Date/Time of Note Date/Time of Note DATE: 02/24/16 TIME: 12:59 Assessment/Plan Assessment/Plan Chief Complaint/Hosp Course IMPRESSION: 1. Wide complex tachycardia, most likely consistent with nonsustained ventricular tachycardia versus aberrant supraventricular tachycardia, less likely.-improved on IV amio/BB 2. Cardiomyopathy with severely depressed left ventricular ejection fraction last approximately 25% by echo January 2016. 3. Positive troponin in the setting of recurrent bouts of wide complex tachycardia.-now downtrending 4. Automatic implantable cardioverter defibrillator discharge per patient x3 this morning. s/p interrogation revealing ICD shock for SVT not VT 5. Chronic obstructive pulmonary disease. 6. Shortness of breath. 7. Congestive heart failure, systolic, acute on chronic. 8. Anemia. 9.Renal failure acute on chronic-which is slowly improving Recc: -Tele -Continue BB -Continue po amiodarone -low dose hydralazine afterload reduction in lieu of ACEI given renal failure -Continue asa -Follow renal fxn closely with possible cath once creatnine improved -Continue steroids/brochodilators/steroids -Continue gentle lasix diuresis -Stress test test in AM to assess for significant ischemia Problems: Consultation Date/Type/Reason Admit Date/Time Feb 20, 2016 at 08:27 Initial Consult Date 02/20/16 Type of Consultation: Cardiology Reason for Consultation AICD discharge Referring Provider: OSWALDO MIGUEL MD Exam/Review of Systems Vital Signs Vitals Vital Signs Date Time Temp Pulse Resp B/P Pulse Ox O2 Delivery O2 Flow Rate FiO2 02/24/16 12:19 70 02/24/16 11:29 98.6 20 110/55 98 02/24/16 08:20 Nasal Cannula 3.0 Intake and Output 02/23/16 02/23/16 02/24/16 15:00 23:00 07:00 Intake Total 950 ml 750 ml Output Total 850 ml 1150 ml Balance 100 ml -400 ml Exam Review of Systems: CONSTITUTIONAL: No fevers, chills. PULMONARY: No sob CARDIOVASCULAR: No chest pain/palpitations GASTROINTESTINAL: No nausea/vomiting. GENITOURINARY: No hematuria/dysuria. MUSCULOSKELETAL: No myagias/arthalgias. PSYCHIATRIC: The patient denies depression. NEUROLOGIC: No weakness Constitutional: alert, oriented Psych: no complaints Head: normocephalic ENMT: mucosa pink and moist Neck: jvd (9 cm water), supple Respiratory: diminished breath sounds (at bases/B) Cardiovascular: regular rate and rhythm Gastrointestinal: non-tender, soft Musculoskeletal: muscle tone (normal) Extremities: edema Neurological: other (No focal deficits) Results Result Diagram: 02/24/16 0515 02/24/16 0515 Results 24 hrs Laboratory Tests Test 02/23/16 17:39 02/23/16 21:21 02/24/16 05:15 02/24/16 07:20 Bedside Glucose 215 264 H 89 Anion Gap 16 Basophils # 0.0 Basophils % 0.3 Blood Morphology Comment Blood Urea Nitrogen 47 H Calcium Level 9.4 Carbon Dioxide Level 26 Chloride Level 101 Creatinine 1.48 H Eosinophils # 0.0 Eosinophils % 0.0 Glucose Level 129 Hematocrit 34.4 L Hemoglobin 11.9 L Lymphocytes # 1.1 Lymphocytes % 7.2 L Magnesium Level 2.5 Mean Corpuscular Hemoglobin 32.2 Mean Corpuscular Hemoglobin Concent 34.5 Mean Corpuscular Volume 93.4 Mean Platelet Volume 9.0 Monocytes # 1.1 H Monocytes % 7.4 Neutrophils # 12.5 H Neutrophils % 85.1 H Nucleated Red Blood Cells # 0.0 Nucleated Red Blood Cells % 0.0 Phosphorus Level 4.2 Platelet Count 313 Potassium Level 4.4 Red Blood Count 3.69 L Red Cell Distribution Width 15.0 H Sodium Level 139 White Blood Count 14.7 #H Test 02/24/16 12:16 Bedside Glucose 173 Medications Medications Current Medications Albuterol (Ventolin Hfa) 2 puff Q4H PRN INH WHEEZING AND RESP DISTRESS; Start 02/20/16 at 09:00 Atorvastatin Calcium (Lipitor) 10 mg QHS PO Last administered on 02/23/16 21: 43; Admin Dose 10 MG; Start 02/20/16 at 21:00 Furosemide (Lasix) 20 mg DAILY PO ; Start 02/20/16 at 09:00; Status Future Hold Salmeterol Xinafoate/ Fluticasone (Advair 250/50 Diskus) 1 inh BID INH Last administered on 02/24/16 09:17; Admin Dose 1 INH; Start 02/20/16 at 09:00 Pantoprazole (Protonix Tab) 40 mg DAILY@06 PO Last administered on 02/24/16 05 :30; Admin Dose 40 MG; Start 02/21/16 at 06:00 Miscellaneous Information 1 each DAILY INHALATION ; Start 02/20/16 at 09:00; Status UNV Lorazepam (Ativan) 0.5 mg Q8H PRN PO ANXIETY; Start 02/20/16 at 09:00 Ondansetron HCl (Zofran Tab) 4 mg Q6H PRN PO NAUSEA AND/OR VOMITING; Start 01/24 at 09:00 Aspirin (Aspirin) 81 mg DAILY PO Last administered on 02/24/16 09:18; Admin Dose 81 MG; Start 02/20/16 at 09:00 Furosemide (Lasix) 20 mg BID IV Last administered on 02/21/16 22:19; Admin Dose 20 MG; Start 02/20/16 at 09:00; Status Future Hold Nitroglycerin (Nitroglycerin (Sl Tab) 0.4 Mg) 1 tab Q5M PRN SL CHEST PAIN; Start 02/20/16 at 09:00 Acetaminophen (Tylenol Tab) 650 mg Q6H PRN PO PAIN LEVEL 1-3 OR FEVER; Start at 09:00 Morphine Sulfate (morphine) 1 mg Q4H PRN IV PAIN LEVEL 7-10; Start 02/20/16 at 09:00 Docusate Sodium (Colace) 100 mg Q12H PRN PO CONSTIPATION; Start 02/20/16 at 09: 00 Miscellaneous Information 1 ea NOTE XX ; Start 02/20/16 at 13:30 Glucose (Glutose) 15 gm Q15M PRN PO DECREASED GLUCOSE; Start 02/20/16 at 13:30 Glucose (Glutose) 22.5 gm Q15M PRN PO DECREASED GLUCOSE; Start 02/20/16 at 13: 30 Dextrose (D50w Syringe) 25 ml Q15M PRN IV DECREASED GLUCOSE; Start 02/20/16 at 13:30 Dextrose (D50w Syringe) 50 ml Q15M PRN IV DECREASED GLUCOSE; Start 02/20/16 at 13:30 Glucagon (Glucagen) 1 mg Q15M PRN IM DECREASED GLUCOSE; Start 02/20/16 at 13:30 Glucose (Glutose) 15 gm Q15M PRN BUCCAL DECREASED GLUCOSE; Start 02/20/16 at 13 :30 Miscellaneous Information (*Order Clarification Bulletin) MEDICATION REQUIRES CLARIFICATI... Q8H XX ; Start 02/20/16 at 18:30 Metoprolol Tartrate (Lopressor) 5 mg Q4H PRN IV ELEVATED HEART RATE; Start 01/24 at 21:00 Metoprolol Succinate (Toprol Xl) 25 mg BID PO Last administered on 02/24/16 09 :18; Admin Dose 25 MG; Start 02/20/16 at 21:30 Acetylcysteine (Nac) 600 mg BID PO Last administered on 02/24/16 09:18; Admin Dose 600 MG; Start 02/21/16 at 09:00 Amiodarone HCl (Cordarone) 200 mg Q8 PO Last administered on 02/24/16 05:30; Admin Dose 200 MG; Start 02/21/16 at 22:00 Hydralazine HCl (Apresoline) 10 mg Q12 PO Last administered on 02/24/16 09:18 ; Admin Dose 10 MG; Start 02/21/16 at 21:00 Insulin Glargine 20 unit 20 unit QHS SC Last administered on 02/23/16 21:53; Admin Dose 20 UNIT; Start 02/22/16 at 21:00 Ceftriaxone Sodium (Rocephin) 50 ml @ 100 mls/hr Q24H IVPB Last administered on 02/24/16 09:17; Admin Dose 100 MLS/HR; Start 02/22/16 at 10:00 Heparin Sodium (Porcine) (Heparin (5000 Units/0.5 ml)) 5,000 unit BID SC Last administered on 02/24/16 09:21; Admin Dose 5,000 UNIT; Start 02/23/16 at 09:00 Prednisone (Prednisone) 20 mg DAILY PO Last administered on 02/24/16 09:18; Admin Dose 20 MG; Start 02/24/16 at 09:00 CINTHIA GOLDBERG Feb 24, 2016 13:06
--- NOTE | 2016-02-24 13:06 | PN ---
DATE: 02/24/2016 SUBJECTIVE: The patient is stable, no acute events overnight. No fevers, chills, nausea, vomiting. OBJECTIVE: VITAL SIGNS: Blood pressure 109/56, respirations 18, pulse 70, temperature 98.2. I'S AND O'S: The patient had 1700 in with 2 L out. HEENT: Head is normocephalic. NECK: Supple. HEART: Regular rate. LUNGS: Show diminished breath sounds at the base. ABDOMEN: Soft, nontender to palpation. No rebound or guarding. EXTREMITIES: Negative for clubbing, cyanosis, no edema. DERMATOLOGIC: No rashes. MUSCULOSKELETAL: No joint effusions. NEUROLOGIC: No change in exam. MEDICATIONS: The patient's medications have been reviewed. LABORATORY DATA: Shows a white count 14.7, hemoglobin 9.9, hematocrit 34.4, platelet count is 313. Sodium 139, potassium 4.4, chloride 101, BUN 47, creatinine 1.48. ASSESSMENT AND PLAN: 1. Nonoliguric acute kidney injury with a previous baseline creatinine 1.1 mg/dL. Etiology of acut e kidney injury is secondary to hemodynamics. Renal function has slowly been improving. Continue c urrent treatment plan, supportive care, renally dose all medications. 2. Anemia of chronic disease. Continue to monitor H and H levels. 3. Mineral bone disorder. Continue to monitor calcium and phosphorus levels. Phosphorus levels weiner ve been improving. Continue to monitor. 4. Arrhythmia with complex tachycardia. The patient is on amiodarone. We will continue. 5. Qxu-EW-aptaphwfm myocardial infarction. Continue current medical management. Follow up with ca rdiology. 6. Acute diastolic heart failure. The patient appears euvolemic. Holding diuretic therapy in the setting of acute kidney injury. Monitor closely. 7. Respiratory failure secondary to chronic obstructive pulmonary disease exacerbation, possible co ngestive heart failure exacerbation. Clinically improving. Continue nebulizers and supplemental ox ygen. Continue current medical management. 8. Hypertension. Continue current blood pressure regimen. Dictated By: KELSY BEE/LEONARDO Conf#: [id number] DID#: [id number]
--- NOTE | 2016-02-24 13:32 | PN ---
Date/Time of Note Date/Time of Note DATE: 02/24/16 TIME: 12:18 Assessment/Plan VTE Prophylaxis VTE Prophylaxis Intervention: heparin Lines/Catheters IV [facility] Type ([facility] Sal[place] Lock Urinary Cath still in place: No Assessment/Plan Chief Complaint/Hosp Course IMPRESSION: 1. Wide complex tachycardia, most likely consistent with nonsustained ventricular tachycardia versus aberrant supraventricular tachycardia, less likely. Cardiology has been consulted. We will follow his recommendation. Patient is status post amiodarone drip and has been transitioned to oral amiodarone and continue metoprolol. Plan for Lexiscan Cardiolite stress test tomorrow 2. Cardiomyopathy with severely depressed left ventricular ejection fraction last approximately 25% by echo January 2016. Continue losartan, Toprol, Lasix, strict I's and O's. 3. Hwi-MX-iliwgdkqyt infarction with a history of atrial flutter and recent ventricular tachycardia . The patient will be continued on aspirin beta jack and statin, has been placed on heparin drip. Cardiology has been consulted. Plan for left heart catheterization when renal panel improves 4. Automatic implantable cardioverter defibrillator discharge per patient x3 Cardiology has been consulted, follow up his recommendations 5. Chronic obstructive pulmonary disease. Continue oxygen supplementation, breathing treatment, steroids 6. Shortness of breath. Likely secondary to COPD and CHF 7. Congestive heart failure, systolic, acute on chronic. As above 8. Anemia. Stable 9. Essential hypertension, well controlled on medical management. 10. Acute on chronic renal insufficiency. Nephrology has been consulted. Be cautious with nephrotoxic medication. 11. Diabetic mellitus, better controlled continue Lantus and since then the skeletal carb diet 12. Leukocytosis likely steroid-induced, patient is afebrile continue to monitor - For deep venous thrombosis prophylaxis, on heparin. - For gastrointestinal prophylaxis, on Protonix. We will continue monitor patient closely further recommendation management treatment as clinical course Problems: Subjective 24 Hr Interval Summary Free Text/Dictation Patient denies of any chest pain or shortness of breath Tolerating oral intake Ambulating without any difficulty Exam/Review of Systems Vital Signs Vitals Vital Signs Date Time Temp Pulse Resp B/P Pulse Ox O2 Delivery O2 Flow Rate FiO2 02/24/16 11:29 98.6 72 20 110/55 98 02/24/16 08:20 Nasal Cannula 3.0 Intake and Output 02/23/16 02/23/16 02/24/16 15:00 23:00 07:00 Intake Total 950 ml 750 ml Output Total 850 ml 1150 ml Balance 100 ml -400 ml Exam General: The patient is well-developed, Not in acute distress. HEENT: Atraumatic, normocephalic. The pupils are equal and round . Neck: Supple with full range of motion. Chest: Normal expansion of the thorax during inspiration Lungs: Clear to auscultation bilaterally Heart: Normal S1-S2, Regular rhythm and rate. Abdomen: Soft , nontender, nondistended , bowel sounds are present. Extremities: Normal to inspection, no edema no cyanosis Neurologic: Normal mental status,The patient is awake, alert and oriented . Results Result Diagram: 02/24/1615 02/24/1615 Results 24 hrs Laboratory Tests Test 02/23/16 12:41 02/23/16 17:39 02/23/16 21:21 02/24/16 05:15 Bedside Glucose 235 H 215 264 H Anion Gap 16 Basophils # 0.0 Basophils % 0.3 Blood Morphology Comment Blood Urea Nitrogen 47 H Calcium Level 9.4 Carbon Dioxide Level 26 Chloride Level 101 Creatinine 1.48 H Eosinophils # 0.0 Eosinophils % 0.0 Glucose Level 129 Hematocrit 34.4 L Hemoglobin 11.9 L Lymphocytes # 1.1 Lymphocytes % 7.2 L Magnesium Level 2.5 Mean Corpuscular Hemoglobin 32.2 Mean Corpuscular Hemoglobin Concent 34.5 Mean Corpuscular Volume 93.4 Mean Platelet Volume 9.0 Monocytes # 1.1 H Monocytes % 7.4 Neutrophils # 12.5 H Neutrophils % 85.1 H Nucleated Red Blood Cells # 0.0 Nucleated Red Blood Cells % 0.0 Phosphorus Level 4.2 Platelet Count 313 Potassium Level 4.4 Red Blood Count 3.69 L Red Cell Distribution Width 15.0 H Sodium Level 139 White Blood Count 14.7 #H Test 02/24/16 07:20 Bedside Glucose 89 Medications Medications Current Medications Albuterol (Ventolin Hfa) 2 puff Q4H PRN INH WHEEZING AND RESP DISTRESS; Start 02/20/16 at 09:00 Atorvastatin Calcium (Lipitor) 10 mg QHS PO Last administered on 02/23/16t 21: 43; Admin Dose 10 MG; Start 02/20/16 at 21:00 Furosemide (Lasix) 20 mg DAILY PO ; Start 02/20/16 at 09:00; Status Future Hold Salmeterol Xinafoate/ Fluticasone (Advair 250/50 Diskus) 1 inh BID INH Last administered on 02/24/16 09:17; Admin Dose 1 INH; Start 02/20/16 at 09:00 Pantoprazole (Protonix Tab) 40 mg DAILY@06 PO Last administered on 02/24/16 05 :30; Admin Dose 40 MG; Start 02/21/16 at 06:00 Miscellaneous Information 1 each DAILY INHALATION ; Start 02/20/16 at 09:00; Status UNV Lorazepam (Ativan) 0.5 mg Q8H PRN PO ANXIETY; Start 02/20/16 at 09:00 Ondansetron HCl (Zofran Tab) 4 mg Q6H PRN PO NAUSEA AND/OR VOMITING; Start 01/24 at 09:00 Aspirin (Aspirin) 81 mg DAILY PO Last administered on 02/24/16 09:18; Admin Dose 81 MG; Start 02/20/16 at 09:00 Furosemide (Lasix) 20 mg BID IV Last administered on 02/21/16 22:19; Admin Dose 20 MG; Start 02/20/16 at 09:00; Status Future Hold Nitroglycerin (Nitroglycerin (Sl Tab) 0.4 Mg) 1 tab Q5M PRN SL CHEST PAIN; Start 02/20/16 at 09:00 Acetaminophen (Tylenol Tab) 650 mg Q6H PRN PO PAIN LEVEL 1-3 OR FEVER; Start at 09:00 Morphine Sulfate (morphine) 1 mg Q4H PRN IV PAIN LEVEL 7-10; Start 02/20/16 at 09:00 Docusate Sodium (Colace) 100 mg Q12H PRN PO CONSTIPATION; Start 02/20/16 at 09: 00 Miscellaneous Information 1 ea NOTE XX ; Start 02/20/16 at 13:30 Glucose (Glutose) 15 gm Q15M PRN PO DECREASED GLUCOSE; Start 02/20/16 at 13:30 Glucose (Glutose) 22.5 gm Q15M PRN PO DECREASED GLUCOSE; Start 02/20/16 at 13: 30 Dextrose (D50w Syringe) 25 ml Q15M PRN IV DECREASED GLUCOSE; Start 02/20/16 at 13:30 Dextrose (D50w Syringe) 50 ml Q15M PRN IV DECREASED GLUCOSE; Start 02/20/16 at 13:30 Glucagon (Glucagen) 1 mg Q15M PRN IM DECREASED GLUCOSE; Start 02/20/16 at 13:30 Glucose (Glutose) 15 gm Q15M PRN BUCCAL DECREASED GLUCOSE; Start 02/20/16 at 13 :30 Miscellaneous Information (*Order Clarification Bulletin) MEDICATION REQUIRES CLARIFICATI... Q8H XX ; Start 02/20/16 at 18:30 Metoprolol Tartrate (Lopressor) 5 mg Q4H PRN IV ELEVATED HEART RATE; Start 01/24 at 21:00 Metoprolol Succinate (Toprol Xl) 25 mg BID PO Last administered on 02/24/16 09 :18; Admin Dose 25 MG; Start 02/20/16 at 21:30 Acetylcysteine (Nac) 600 mg BID PO Last administered on 02/24/16 09:18; Admin Dose 600 MG; Start 02/21/16 at 09:00 Amiodarone HCl (Cordarone) 200 mg Q8 PO Last administered on 02/24/16 05:30; Admin Dose 200 MG; Start 02/21/16 at 22:00 Hydralazine HCl (Apresoline) 10 mg Q12 PO Last administered on 02/24/16 09:18 ; Admin Dose 10 MG; Start 02/21/16 at 21:00 Insulin Glargine 20 unit 20 unit QHS SC Last administered on 02/23/16 21:53; Admin Dose 20 UNIT; Start 02/22/16 at 21:00 Ceftriaxone Sodium (Rocephin) 50 ml @ 100 mls/hr Q24H IVPB Last administered on 02/24/16 09:17; Admin Dose 100 MLS/HR; Start 02/22/16 at 10:00 Heparin Sodium (Porcine) (Heparin (5000 Units/0.5 ml)) 5,000 unit BID SC Last administered on 02/24/16 09:21; Admin Dose 5,000 UNIT; Start 02/23/16 at 09:00 Prednisone (Prednisone) 20 mg DAILY PO Last administered on 02/24/16 09:18; Admin Dose 20 MG; Start 02/24/16 at 09:00 OSWALDO MIGUEL MD Feb 24, 2016 13:32
[2016-02-24] MEDS: ATORVASTATIN 10 MG TAB PO SCH (20:50)
[2016-02-24] MEDS: INSULIN GLARGINE [LANtus] 3 ML PEN SC SCH (21:00)
[2016-02-25] VITALS (11 sets, daily range): BP systolic 99–121; BP diastolic 51–65; PULSE 60–72; RESP 16–20
[2016-02-25] MEDS: [UNRECOGNIZED DRUG - OTHER] XX SCH ×3 (02:02→17:48)
[2016-02-25] MEDS: UMECLIDINIUM XX SCH ×3 (02:02→17:48)
[2016-02-25] MEDS: LORAZEPAM 0.5 MG TAB PO PRN ×2 (02:48→21:32)
[2016-02-25] MEDS: AMIODARONE 200 MG TAB PO SCH ×3 (06:00→21:19)
[2016-02-25] MEDS: PANTOPRAZOLE (EC) 40 MG TAB PO SCH (06:00)
[2016-02-25] MEDS: INSULIN ASPART [NOVOLOG] 3 ML PEN SC SCH ×7 (07:42→21:30)
[2016-02-25] MEDS: METOPROLOL (XL) 25 MG TAB PO SCH ×2 (07:45→21:20)
[2016-02-25] MEDS: ACETYLCYSTEINE 600 MG CAP PO SCH ×2 (08:12→21:20)
[2016-02-25] MEDS: predniSONE 20 MG TAB PO SCH (08:12)
[2016-02-25] MEDS: ASPIRIN 81 MG TAB PO SCH (08:12)
[2016-02-25] MEDS: SALMETEROL/FLUTICASONE 250/50 INHA INH SCH ×2 (08:13→21:24)
[2016-02-25] MEDS: CEFTRIAXONE 1 GM/50 ML (PMX) 50 ML IVPB SCH (08:13)
[2016-02-25] MEDS: NPH, HUMAN INSULIN ISOPHANE 3ML VIAL SC SCH ×3 (08:15→17:46)
[2016-02-25] MEDS: HEPARIN 5,000 UNIT/0.5 ML SYG SC SCH ×2 (08:15→21:31)
[2016-02-25 08:45] LABS: POTASSIUM 4.6 mmol/L (3.5-5.1)
[2016-02-25 08:47] LABS: CREATININE 1.34 mg/dl (0.61-1.24)
[2016-02-25 08:48] LABS: CALCIUM 9.2 mg/dl (8.4-10.2); PHOSPHORUS 4.1 mg/dl (2.5-4.9)
[2016-02-25 08:49] LABS: MAGNESIUM 2.5 mg/dl (1.7-2.5)
--- NOTE | 2016-02-25 10:35 | RADRPT ---
Vent Rate: 70 bpm RR Interval: 0 msec IA Interval: 250 msec QRS Duration: 168 msec QT Interval: 472 msec QTC Interval: 509 msec P-R-T [place]: 45 - 74 - 69 degrees Sinus rhythm with 1st degree AV block Right bundle branch block Abnormal ECG Electronically Signed By: Duncan Rios [id number]
[2016-02-25] MEDS ORDERED: REGADENOSON 0.4 MG/5 ML SYG ONE (10:55)
--- NOTE | 2016-02-25 11:15 | PN ---
DATE: 02/25/2016 SUBJECTIVE: The patient is stable. No acute events overnight. No fevers, chills, nausea, vomiting. No shortness of breath. OBJECTIVE: VITAL SIGNS: Blood pressure is 99/58, respirations 20, pulse 62, temperature 97.6. HEENT: Head is normocephalic. NECK: Supple. HEART: Regular rate. LUNGS: Show diminished breath sounds at the base. ABDOMEN: Soft, nontender to palpation. No rebound or guarding. EXTREMITIES: Negative for clubbing, cyanosis. No edema. DERMATOLOGIC: No rashes. MUSCULOSKELETAL: No joint effusions. NEUROLOGIC: No change in exam. MEDICATIONS: Have been reviewed. LABORATORY DATA: Has been reviewed, currently pending. ASSESSMENT AND PLAN: 1. Nonoliguric acute kidney injury with a previous baseline creatinine 1.1 mg/dL. Etiology likely s econdary to hemodynamics, diuretics. Renal function has been improving. At this point, continue cu rrent treatment plan, supportive care. 2. Anemia of chronic disease. Continue to monitor hemoglobin and hematocrit levels. 3. Mineral bone disorder. Continue to monitor calcium and phosphorus levels. Phosphorus levels hav e been improving. 4. Arrhythmia with complex tachycardia, stable. The patient is clinically improved. Continue amio darone. 5. Non-ST elevation myocardial infarction. Continue medical management. The patient is pending a stress test. 6. Acute diastolic heart failure. The patient is currently euvolemic, holding diuretic therapy in the setting of acute kidney injury. Continue to monitor. 7. Respiratory failure secondary to chronic obstructive pulmonary disease, congestive heart failure . The patient is improving clinically. Continue medical management. Continue supplemental oxygen. 8. Hypertension. Continue current blood pressure regimen. Dictated By: KELSY BEE/LEONARDO Conf#: [id number] DID#: [id number]
--- NOTE | 2016-02-25 11:22 | CONS ---
Date/Time of Note Date/Time of Note DATE: 02/25/16 TIME: 11:21 Assessment/Plan Assessment/Plan Additional Assessment/Plan 1. Wide complex tachycardia, most likely consistent with nonsustained ventricular tachycardia versus aberrant supraventricular tachycardia, less likely.-improved on IV amio/BB - med rx for now 2. Cardiomyopathy with severely depressed left ventricular ejection fraction last approximately 25% by echo January 2016- Stress test planned today 3. Positive troponin in the setting of recurrent bouts of wide complex tachycardia.-now downtrending0- will monitor after stres test 4. Automatic implantable cardioverter defibrillator discharge per patient x3 this morning. s/p interrogation revealing ICD shock for SVT not VT 5. Chronic obstructive pulmonary disease - pulmonary to follow 6. Shortness of breath - likely COPD = CHF - better now 7. Congestive heart failure, systolic, acute on chronic. 8. Anemia. 9.Renal failure acute on chronic-which is slowly improving Consultation Date/Type/Reason Admit Date/Time Feb 20, 2016 at 08:27 Initial Consult Date Type of Consultation: Cardiology Referring Provider: OSWALDO MIGUEL MD 24 HR Interval Summary Free Text/Dictation NO acute change - Stress test today ROS: No fever, no chills, no nausea, no vomiting, no diarrhea/constipation No recent weight changes No chest pain, no PND, no orthopnea + SOB No dizziness, blurred vision No thirst, no heat or cold intolerance Exam/Review of Systems Vital Signs Vitals Vital Signs Date Time Temp Pulse Resp B/P Pulse Ox O2 Delivery O2 Flow Rate FiO2 02/25/16 08:15 60 02/25/16 08:00 Nasal Cannula 3.0 02/25/16 07:36 97.6 20 99/58 98 Intake and Output 02/24/16 02/24/16 02/25/16 15:00 23:00 07:00 Intake Total 1300 ml 700 ml Output Total 1500 ml 900 ml Balance -200 ml -200 ml Exam General: WN/WD/NAD, AOx 3 HEENT: Unicetric/atraumatic/EOMI (follows commands) NECK: JVD elevated, no thyromegaly Lymph: no lymphadenopathy HEART: regular with no S3, II/ systolic murmur at apex, PMI Left LUNGS: Coarse sounds ABD: soft, NT, ND, +BS : Intact Neuro: non focal SKIN: chronic changes EXT: trace edema Results Result Diagram: 02/24/16 0515 02/25/16 0651 Results 24 hrs Laboratory Tests Test 02/24/16 12:16 02/24/16 17:24 02/24/16 20:49 02/25/16 06:51 Bedside Glucose 173 267 H 225 H Anion Gap 15 Blood Urea Nitrogen 38 H Calcium Level 9.2 Carbon Dioxide Level 28 Chloride Level 101 Creatinine 1.34 H Glucose Level 108 Magnesium Level 2.5 Phosphorus Level 4.1 Potassium Level 4.6 Sodium Level 139 Test 02/25/16 07:28 02/25/16 08:55 Bedside Glucose 140 Lab Scanned Report REFERENCE LAB Medications Medications Current Medications Albuterol (Ventolin Hfa) 2 puff Q4H PRN INH WHEEZING AND RESP DISTRESS; Start 02/20/16 at 09:00 Atorvastatin Calcium (Lipitor) 10 mg QHS PO Last administered on 02/24/16 20: 50; Admin Dose 10 MG; Start 02/20/16 at 21:00 Furosemide (Lasix) 20 mg DAILY PO ; Start 02/20/16 at 09:00; Status Future Hold Salmeterol Xinafoate/ Fluticasone (Advair 250/50 Diskus) 1 inh BID INH Last administered on 02/25/16 08:13; Admin Dose 1 INH; Start 02/20/16 at 09:00 Pantoprazole (Protonix Tab) 40 mg DAILY@06 PO Last administered on 02/24/16 05 :30; Admin Dose 40 MG; Start 02/21/16 at 06:00 Miscellaneous Information 1 each DAILY INHALATION ; Start 02/20/16 at 09:00; Status UNV Lorazepam (Ativan) 0.5 mg Q8H PRN PO ANXIETY Last administered on 02/25/16 02: 48; Admin Dose 0.5 MG; Start 02/20/16 at 09:00 Ondansetron HCl (Zofran Tab) 4 mg Q6H PRN PO NAUSEA AND/OR VOMITING; Start 01/24 at 09:00 Aspirin (Aspirin) 81 mg DAILY PO Last administered on 02/25/16 08:12; Admin Dose 81 MG; Start 02/20/16 at 09:00 Furosemide (Lasix) 20 mg BID IV Last administered on 02/21/16 22:19; Admin Dose 20 MG; Start 02/20/16 at 09:00; Status Future Hold Nitroglycerin (Nitroglycerin (Sl Tab) 0.4 Mg) 1 tab Q5M PRN SL CHEST PAIN; Start 02/20/16 at 09:00 Acetaminophen (Tylenol Tab) 650 mg Q6H PRN PO PAIN LEVEL 1-3 OR FEVER; Start at 09:00 Morphine Sulfate (morphine) 1 mg Q4H PRN IV PAIN LEVEL 7-10; Start 02/20/16 at 09:00 Docusate Sodium (Colace) 100 mg Q12H PRN PO CONSTIPATION; Start 02/20/16 at 09: 00 Miscellaneous Information 1 ea NOTE XX ; Start 02/20/16 at 13:30 Glucose (Glutose) 15 gm Q15M PRN PO DECREASED GLUCOSE; Start 02/20/16 at 13:30 Glucose (Glutose) 22.5 gm Q15M PRN PO DECREASED GLUCOSE; Start 02/20/16 at 13: 30 Dextrose (D50w Syringe) 25 ml Q15M PRN IV DECREASED GLUCOSE; Start 02/20/16 at 13:30 Dextrose (D50w Syringe) 50 ml Q15M PRN IV DECREASED GLUCOSE; Start 02/20/16 at 13:30 Glucagon (Glucagen) 1 mg Q15M PRN IM DECREASED GLUCOSE; Start 02/20/16 at 13:30 Glucose (Glutose) 15 gm Q15M PRN BUCCAL DECREASED GLUCOSE; Start 02/20/16 at 13 :30 Miscellaneous Information (*Order Clarification Bulletin) MEDICATION REQUIRES CLARIFICATI... Q8H XX ; Start 02/20/16 at 18:30 Metoprolol Tartrate (Lopressor) 5 mg Q4H PRN IV ELEVATED HEART RATE; Start 01/24 at 21:00 Metoprolol Succinate (Toprol Xl) 25 mg BID PO Last administered on 02/24/16 20 :54; Admin Dose 25 MG; Start 02/20/16 at 21:30 Acetylcysteine (Nac) 600 mg BID PO Last administered on 02/25/16 08:12; Admin Dose 600 MG; Start 02/21/16 at 09:00 Amiodarone HCl (Cordarone) 200 mg Q8 PO Last administered on 02/24/16 21:05; Admin Dose 200 MG; Start 02/21/16 at 22:00 Hydralazine HCl (Apresoline) 10 mg Q12 PO Last administered on 02/24/16 20:51 ; Admin Dose 10 MG; Start 02/21/16 at 21:00 Insulin Glargine 20 unit 20 unit QHS SC Last administered on 02/24/16 21:00; Admin Dose 20 UNIT; Start 02/22/16 at 21:00 Ceftriaxone Sodium (Rocephin) 50 ml @ 100 mls/hr Q24H IVPB Last administered on 02/25/16 08:13; Admin Dose 100 MLS/HR; Start 02/22/16 at 10:00 Heparin Sodium (Porcine) (Heparin (5000 Units/0.5 ml)) 5,000 unit BID SC Last administered on 02/25/16 08:15; Admin Dose 5,000 UNIT; Start 02/23/16 at 09:00 Prednisone (Prednisone) 20 mg DAILY PO Last administered on 02/25/16 08:12; Admin Dose 20 MG; Start 02/24/16 at 09:00 KARINA TORRE MD Feb 25, 2016 11:22
--- NOTE | 2016-02-25 12:04 | PN ---
Date/Time of Note Date/Time of Note DATE: 02/25/16 TIME: 12:03 Assessment/Plan VTE Prophylaxis VTE Prophylaxis Intervention: heparin Lines/Catheters IV [facility]from [facility] Urinary Cath still in place: No Assessment/Plan Chief Complaint/Hosp Course IMPRESSION: 1. Wide complex tachycardia, most likely consistent with nonsustained ventricular tachycardia versus aberrant supraventricular tachycardia, less likely. Cardiology has been consulted. We will follow his recommendation. Patient is status post amiodarone drip and has been transitioned to oral amiodarone and continue metoprolol. Plan for Lexiscan Cardiolite stress test today 2. Cardiomyopathy with severely depressed left ventricular ejection fraction last approximately 25% by echo January 2016. Continue losartan, Toprol, Lasix, strict I's and O's. 3. Ctr-OF-evutkprcpv infarction with a history of atrial flutter and recent ventricular tachycardia . The patient will be continued on aspirin beta jack and statin, has been placed on heparin drip. Cardiology has been consulted. Plan for left heart catheterization when renal panel improves 4. Automatic implantable cardioverter defibrillator discharge per patient x3 Cardiology has been consulted, follow up his recommendations 5. Chronic obstructive pulmonary disease. Continue oxygen supplementation, breathing treatment, steroids 6. Shortness of breath. Likely secondary to COPD and CHF 7. Congestive heart failure, systolic, acute on chronic. As above 8. Anemia. Stable 9. Essential hypertension, well controlled on medical management. 10. Acute on chronic renal insufficiency. Nephrology has been consulted. Be cautious with nephrotoxic medication. 11. Diabetic mellitus, better controlled continue Lantus and since then the skeletal carb diet 12. Leukocytosis likely steroid-induced, patient is afebrile continue to monitor - For deep venous thrombosis prophylaxis, on heparin. - For gastrointestinal prophylaxis, on Protonix. We will continue monitor patient closely further recommendation management treatment as clinical course Plan to discharge home today if stress test is negative for any sign of ischemia Problems: Subjective 24 Hr Interval Summary Free Text/Dictation No acute changes, no arrhythmia 24 hours N.p.o. secondary to upcoming stress test Denies any chest pain or shortness of breath Exam/Review of Systems Vital Signs Vitals Vital Signs Date Time Temp Pulse Resp B/P Pulse Ox O2 Delivery O2 Flow Rate FiO2 02/25/16 08:15 60 02/25/16 08:00 Nasal Cannula 3.0 02/25/16 07:36 97.6 20 99/58 98 Intake and Output 02/24/16 02/24/16 02/25/16 15:00 23:00 07:00 Intake Total 1300 ml 700 ml Output Total 1500 ml 900 ml Balance -200 ml -200 ml Exam General: The patient is moderately overweight, Not in acute distress. HEENT: Atraumatic, normocephalic. The pupils are equal and round . Neck: Supple with full range of motion. Chest: Normal expansion of the thorax during inspiration Lungs: Clear to auscultation bilaterally Heart: Normal S1-S2, Regular rhythm and rate. Abdomen: Soft , nontender, nondistended , bowel sounds are present. Extremities: Normal to inspection, no edema no cyanosis Neurologic: Normal mental status,The patient is awake, alert and oriented . Results Result Diagram: 02/24/16 0515 02/25/16 0651 Results 24 hrs Laboratory Tests Test 02/24/16 12:16 02/24/16 17:24 02/24/16 20:49 02/25/16 06:51 Bedside Glucose 173 267 H 225 H Anion Gap 15 Blood Urea Nitrogen 38 H Calcium Level 9.2 Carbon Dioxide Level 28 Chloride Level 101 Creatinine 1.34 H Glucose Level 108 Magnesium Level 2.5 Phosphorus Level 4.1 Potassium Level 4.6 Sodium Level 139 Test 02/25/16 07:28 02/25/16 08:55 Bedside Glucose 140 Lab Scanned Report REFERENCE LAB Medications Medications Current Medications Albuterol (Ventolin Hfa) 2 puff Q4H PRN INH WHEEZING AND RESP DISTRESS; Start 02/20/16 at 09:00 Atorvastatin Calcium (Lipitor) 10 mg QHS PO Last administered on 02/24/16 20: 50; Admin Dose 10 MG; Start 02/20/16 at 21:00 Furosemide (Lasix) 20 mg DAILY PO ; Start 02/20/16 at 09:00; Status Future Hold Salmeterol Xinafoate/ Fluticasone (Advair 250/50 Diskus) 1 inh BID INH Last administered on 02/25/16 08:13; Admin Dose 1 INH; Start 02/20/16 at 09:00 Pantoprazole (Protonix Tab) 40 mg DAILY@06 PO Last administered on 02/24/16 05 :30; Admin Dose 40 MG; Start 02/21/16 at 06:00 Miscellaneous Information 1 each DAILY INHALATION ; Start 02/20/16 at 09:00; Status UNV Lorazepam (Ativan) 0.5 mg Q8H PRN PO ANXIETY Last administered on 02/25/16 02: 48; Admin Dose 0.5 MG; Start 02/20/16 at 09:00 Ondansetron HCl (Zofran Tab) 4 mg Q6H PRN PO NAUSEA AND/OR VOMITING; Start 01/24 at 09:00 Aspirin (Aspirin) 81 mg DAILY PO Last administered on 02/25/16 08:12; Admin Dose 81 MG; Start 02/20/16 at 09:00 Furosemide (Lasix) 20 mg BID IV Last administered on 02/21/16 22:19; Admin Dose 20 MG; Start 02/20/16 at 09:00; Status Future Hold Nitroglycerin (Nitroglycerin (Sl Tab) 0.4 Mg) 1 tab Q5M PRN SL CHEST PAIN; Start 02/20/16 at 09:00 Acetaminophen (Tylenol Tab) 650 mg Q6H PRN PO PAIN LEVEL 1-3 OR FEVER; Start at 09:00 Morphine Sulfate (morphine) 1 mg Q4H PRN IV PAIN LEVEL 7-10; Start 02/20/16 at 09:00 Docusate Sodium (Colace) 100 mg Q12H PRN PO CONSTIPATION; Start 02/20/16 at 09: 00 Miscellaneous Information 1 ea NOTE XX ; Start 02/20/16 at 13:30 Glucose (Glutose) 15 gm Q15M PRN PO DECREASED GLUCOSE; Start 02/20/16 at 13:30 Glucose (Glutose) 22.5 gm Q15M PRN PO DECREASED GLUCOSE; Start 02/20/16 at 13: 30 Dextrose (D50w Syringe) 25 ml Q15M PRN IV DECREASED GLUCOSE; Start 02/20/16 at 13:30 Dextrose (D50w Syringe) 50 ml Q15M PRN IV DECREASED GLUCOSE; Start 02/20/16 at 13:30 Glucagon (Glucagen) 1 mg Q15M PRN IM DECREASED GLUCOSE; Start 02/20/16 at 13:30 Glucose (Glutose) 15 gm Q15M PRN BUCCAL DECREASED GLUCOSE; Start 02/20/16 at 13 :30 Miscellaneous Information (*Order Clarification Bulletin) MEDICATION REQUIRES CLARIFICATI... Q8H XX ; Start 02/20/16 at 18:30 Metoprolol Tartrate (Lopressor) 5 mg Q4H PRN IV ELEVATED HEART RATE; Start 01/24 at 21:00 Metoprolol Succinate (Toprol Xl) 25 mg BID PO Last administered on 02/24/16 20 :54; Admin Dose 25 MG; Start 02/20/16 at 21:30 Acetylcysteine (Nac) 600 mg BID PO Last administered on 02/25/16 08:12; Admin Dose 600 MG; Start 02/21/16 at 09:00 Amiodarone HCl (Cordarone) 200 mg Q8 PO Last administered on 02/24/16 21:05; Admin Dose 200 MG; Start 02/21/16 at 22:00 Hydralazine HCl (Apresoline) 10 mg Q12 PO Last administered on 02/24/16 20:51 ; Admin Dose 10 MG; Start 02/21/16 at 21:00 Insulin Glargine 20 unit 20 unit QHS SC Last administered on 02/24/16 21:00; Admin Dose 20 UNIT; Start 02/22/16 at 21:00 Ceftriaxone Sodium (Rocephin) 50 ml @ 100 mls/hr Q24H IVPB Last administered on 02/25/16 08:13; Admin Dose 100 MLS/HR; Start 02/22/16 at 10:00 Heparin Sodium (Porcine) (Heparin (5000 Units/0.5 ml)) 5,000 unit BID SC Last administered on 02/25/16 08:15; Admin Dose 5,000 UNIT; Start 02/23/16 at 09:00 Prednisone (Prednisone) 20 mg DAILY PO Last administered on 02/25/16 08:12; Admin Dose 20 MG; Start 02/24/16 at 09:00 OSWALDO MIGULE MD Feb 25, 2016 12:04
--- NOTE | 2016-02-25 14:04 | RADRPT ---
PROCEDURE: Lexiscan myocardial perfusion study CLINICAL INDICATION: 75 -year-old patient complaining of chest pain. TECHNIQUE: Lexiscan 0.4 mg intravenously separate acquisition gated myocardial perfusion SPECT usi ng Tc 99m Myoview 31.3 mCi intravenously at stress and Tc-99m Myoview, 10.5 mCi intravenously at res t was performed using the rest/stress sequence. Poststress Myoview SPECT images were obtained in th e supine position. COMPARISON: No prior studies. FINDINGS: Perfusion images reveal a small size moderate in degree nonreversible perfusion abnormality in the a pex. There is no evidence of stress-induced ischemia. Lexiscan post stress gated SPECT images demonstrate severe hypokinesis of the dilated left ventricle . IMPRESSION: 1. The type and distribution of the scintigraphic abnormalities are most consistent with a small no nreversible perfusion defect in the apical wall. 2. Severe hypokinesis of the dilated left ventricle. 3. The left ventricle ejection fraction at stress is 18%. A call report was made to Dr. Coburn at 02:00 p.m. on February 25, 2016. RPTAT: HH .Katerin Olivera MD, MD Date Time Electronically viewed and signed by .Katerin Olivera MD, MD on 02/25/2016 14:04 .L/
[2016-02-25] MEDS: ATORVASTATIN 10 MG TAB PO SCH (21:20)
[2016-02-25] MEDS: INSULIN GLARGINE [LANtus] 3 ML PEN SC SCH (21:30)
[2016-02-26] VITALS (9 sets, daily range): BP systolic 103–120; BP diastolic 52–59; PULSE 61–87; RESP 19–20
[2016-02-26] MEDS: [UNRECOGNIZED DRUG - OTHER] XX SCH ×2 (02:30→11:22)
[2016-02-26] MEDS: UMECLIDINIUM XX SCH ×2 (02:30→11:22)
[2016-02-26] MEDS: AMIODARONE 200 MG TAB PO SCH (05:29)
[2016-02-26] MEDS: PANTOPRAZOLE (EC) 40 MG TAB PO SCH (05:29)
[2016-02-26 06:31] LABS: POTASSIUM 4.5 mmol/L (3.5-5.1)
[2016-02-26 06:33] LABS: CREATININE 1.38 mg/dl (0.61-1.24)
[2016-02-26 06:34] LABS: CALCIUM 9.2 mg/dl (8.4-10.2); MAGNESIUM 2.4 mg/dl (1.7-2.5); PHOSPHORUS 4.2 mg/dl (2.5-4.9)
[2016-02-26] MEDS: INSULIN ASPART [NOVOLOG] 3 ML PEN SC SCH ×4 (07:55→11:48)
[2016-02-26] MEDS: NPH, HUMAN INSULIN ISOPHANE 3ML VIAL SC SCH ×2 (08:03→11:47)
[2016-02-26] MEDS: SALMETEROL/FLUTICASONE 250/50 INHA INH SCH (10:07)
[2016-02-26] MEDS: ACETYLCYSTEINE 600 MG CAP PO SCH (10:08)
[2016-02-26] MEDS: ASPIRIN 81 MG TAB PO SCH (10:08)
[2016-02-26] MEDS: CEFTRIAXONE 1 GM/50 ML (PMX) 50 ML IVPB SCH (10:12)
[2016-02-26] MEDS: HEPARIN 5,000 UNIT/0.5 ML SYG SC SCH (10:12)
[2016-02-26] MEDS: predniSONE 20 MG TAB PO SCH (10:16)
[2016-02-26] MEDS: METOPROLOL (XL) 25 MG TAB PO SCH (10:18)
--- NOTE | 2016-02-26 10:49 | PN ---
DATE: 02/26/2016 SUBJECTIVE: The patient is stable, no acute events. The patient had a stress test yesterday which showed nonreversible perfusion defect in apical wall and hypokinesis. The patient's breathing is im proved. No other events noted. OBJECTIVE: VITAL SIGNS: Blood pressure 103/54, respiratory rate 20, pulse 62, temperature 98.2. HEENT: Head is normocephalic. NECK: Supple. HEART: Regular rate. LUNGS: Show diminished breath sounds at the base. ABDOMEN: Soft, nontender to palpation. No rebound or guarding. EXTREMITIES: Negative for clubbing, cyanosis, no edema. DERMATOLOGIC: No rashes. MUSCULOSKELETAL: No joint effusions. NEUROLOGIC: No change in exam. MEDICATIONS: The patient's medications have been reviewed. LABORATORY DATA: Shows a sodium 141, potassium 4.5, chloride 104, BUN 40, creatinine 1.38. White c ount 14.7, hemoglobin 11.9, hematocrit 34.4, platelet count is 313,000. IMAGING STUDIES: The patient's stress test reviewed. ASSESSMENT AND PLAN: 1. Nonoliguric acute kidney injury with a previous baseline creatinine of 1.1 mg/dL. Etiology of a cute kidney injury is secondary to hemodynamics, diuretics, questionable tubular injury. The patien t's renal function has improved and stabilized in the last 24 hours. At this point we will continue current treatment plan. Continue supportive care, renally dose all meds, avoid nephrotoxins. Cont inue to hold diuretic therapy. 2. Anemia of chronic disease. Hemoglobin level is stable, continue to monitor. 3. Mineral bone disorder. Continue to monitor calcium and phosphorus levels. 4. Sinus arrhythmia. The patient is currently stable. Continue amiodarone. 5. Non-ST elevation myocardial infarction. The patient is status post stress test which showed non reversible defect. Continue current medical management. Follow up with cardiology. 7. Acute diastolic heart failure. The patient appears euvolemic at this time. Continue to monitor . 8. Respiratory failure secondary to chronic obstructive pulmonary disease exacerbation and congesti ve heart failure. The patient is clinically improving. Continue medical management, supplemental o xygen, and nebulizers. 9. Hypertension, controlled. Continue current blood pressure regimen. Holding TIMMY inhibitor/ARB i n the setting of acute kidney injury. 10. Diabetes. Continue Accu-Cheks, insulin sliding scale. Dictated By: KELSY BEE/LEONARDO Conf#: [id number] DID#: [id number]
--- NOTE | 2016-02-26 10:55 | CONS ---
Date/Time of Note Date/Time of Note DATE: 02/26/16 TIME: 10:51 Assessment/Plan Assessment/Plan Chief Complaint/Hosp Course IMPRESSION: 1. Wide complex tachycardia, most likely consistent with nonsustained ventricular tachycardia versus aberrant supraventricular tachycardia, less likely.-improved on PO amio/BB 2. Cardiomyopathy with severely depressed left ventricular ejection fraction last approximately 25% by echo January 2016. 3. Positive troponin in the setting of recurrent bouts of wide complex tachycardia.-now downtrending-Lexiscan with no reversible ischemia/scar and EF 18% only 4. Automatic implantable cardioverter defibrillator discharge per patient x3 this morning. s/p interrogation revealing ICD shock for SVT not VT- no recurrent shocks 5. Chronic obstructive pulmonary disease. 6. Shortness of breath. 7. Congestive heart failure, systolic, acute on chronic. 8. Anemia. 9.Renal failure acute on chronic-which continues to slowly improving Recc: -Tele -Continue BB -Continue po amiodarone but will decrease to BID x 1 week and then daily 200 mg thereafter -Continue low dose hydralazine afterload reduction in lieu of ACEI given renal failure -Continue asa -Continue steroids/brochodilators/steroids -Would resume low dose lasix prior to D/C -Given my card to f/u in next 2-3 weeks Problems: Consultation Date/Type/Reason Admit Date/Time Feb 20, 2016 at 08:27 Initial Consult Date 02/20/16 Type of Consultation: Cardiology Reason for Consultation [place] Referring Provider: OSWALDO MIGUEL MD Exam/Review of Systems Vital Signs Vitals Vital Signs Date Time Temp Pulse Resp B/P Pulse Ox O2 Delivery O2 Flow Rate FiO2 02/26/16 08:21 87 02/26/16 07:47 98.2 20 103/54 99 02/26/16 05:49 2.0 02/25/16 19:00 Nasal Cannula Intake and Output 02/25/16 02/25/16 02/26/16 15:00 23:00 07:00 Intake Total 720 ml 650 ml Output Total 4 ml 1500 ml Balance 716 ml -850 ml Exam Review of Systems: CONSTITUTIONAL: No fevers, chills. PULMONARY: No sob CARDIOVASCULAR: No chest pain/palpitations GASTROINTESTINAL: No nausea/vomiting. GENITOURINARY: No hematuria/dysuria. MUSCULOSKELETAL: No myagias/arthalgias. PSYCHIATRIC: The patient denies depression. NEUROLOGIC: No weakness Constitutional: alert, oriented Psych: no complaints Head: normocephalic ENMT: mucosa pink and moist Neck: jvd (9 cm water), supple Respiratory: diminished breath sounds (at bases/B) Cardiovascular: regular rate and rhythm Gastrointestinal: non-tender, soft Musculoskeletal: muscle tone (normal) Extremities: edema (none) Neurological: other (No focal deficits) Results Result Diagram: 02/24/16 0515 02/26/16 0551 Results 24 hrs Laboratory Tests Test 02/25/16 14:25 02/25/16 17:31 02/25/16 21:22 02/26/16 05:51 Bedside Glucose 241 H 242 H 210 Anion Gap 15 Blood Urea Nitrogen 40 H Calcium Level 9.2 Carbon Dioxide Level 27 Chloride Level 104 Creatinine 1.38 H Glucose Level 114 Magnesium Level 2.4 Phosphorus Level 4.2 Potassium Level 4.5 Sodium Level 141 Test 02/26/16 07:57 Bedside Glucose 106 Medications Medications Current Medications Albuterol (Ventolin Hfa) 2 puff Q4H PRN INH WHEEZING AND RESP DISTRESS; Start 02/20/16 at 09:00 Atorvastatin Calcium (Lipitor) 10 mg QHS PO Last administered on 02/25/16 21: 20; Admin Dose 10 MG; Start 02/20/16 at 21:00 Furosemide (Lasix) 20 mg DAILY PO ; Start 02/20/16 at 09:00; Status Future Hold Salmeterol Xinafoate/ Fluticasone (Advair 250/50 Diskus) 1 inh BID INH Last administered on 02/26/16 10:07; Admin Dose 1 INH; Start 02/20/16 at 09:00 Pantoprazole (Protonix Tab) 40 mg DAILY@06 PO Last administered on 02/26/16 05 :29; Admin Dose 40 MG; Start 02/21/16 at 06:00 Miscellaneous Information 1 each DAILY INHALATION ; Start 02/20/16 at 09:00; Status UNV Lorazepam (Ativan) 0.5 mg Q8H PRN PO ANXIETY Last administered on 02/25/16 21: 32; Admin Dose 0.5 MG; Start 02/20/16 at 09:00 Ondansetron HCl (Zofran Tab) 4 mg Q6H PRN PO NAUSEA AND/OR VOMITING; Start 01/24 at 09:00 Aspirin (Aspirin) 81 mg DAILY PO Last administered on 02/26/16 10:08; Admin Dose 81 MG; Start 02/20/16 at 09:00 Furosemide (Lasix) 20 mg BID IV Last administered on 02/21/16 22:19; Admin Dose 20 MG; Start 02/20/16 at 09:00; Status Future Hold Nitroglycerin (Nitroglycerin (Sl Tab) 0.4 Mg) 1 tab Q5M PRN SL CHEST PAIN; Start 02/20/16 at 09:00 Acetaminophen (Tylenol Tab) 650 mg Q6H PRN PO PAIN LEVEL 1-3 OR FEVER; Start at 09:00 Morphine Sulfate (morphine) 1 mg Q4H PRN IV PAIN LEVEL 7-10; Start 02/20/16 at 09:00 Docusate Sodium (Colace) 100 mg Q12H PRN PO CONSTIPATION; Start 02/20/16 at 09: 00 Miscellaneous Information 1 ea NOTE XX ; Start 02/20/16 at 13:30 Glucose (Glutose) 15 gm Q15M PRN PO DECREASED GLUCOSE; Start 02/20/16 at 13:30 Glucose (Glutose) 22.5 gm Q15M PRN PO DECREASED GLUCOSE; Start 02/20/16 at 13: 30 Dextrose (D50w Syringe) 25 ml Q15M PRN IV DECREASED GLUCOSE; Start 02/20/16 at 13:30 Dextrose (D50w Syringe) 50 ml Q15M PRN IV DECREASED GLUCOSE; Start 02/20/16 at 13:30 Glucagon (Glucagen) 1 mg Q15M PRN IM DECREASED GLUCOSE; Start 02/20/16 at 13:30 Glucose (Glutose) 15 gm Q15M PRN BUCCAL DECREASED GLUCOSE; Start 02/20/16 at 13 :30 Miscellaneous Information (*Order Clarification Bulletin) MEDICATION REQUIRES CLARIFICATI... Q8H XX ; Start 02/20/16 at 18:30 Metoprolol Tartrate (Lopressor) 5 mg Q4H PRN IV ELEVATED HEART RATE; Start 01/24 at 21:00 Metoprolol Succinate (Toprol Xl) 25 mg BID PO Last administered on 1/17/17at 21 :20; Admin Dose 25 MG; Start 02/20/16 at 21:30 Acetylcysteine (Nac) 600 mg BID PO Last administered on 02/26/16 10:08; Admin Dose 600 MG; Start 02/21/16 at 09:00 Amiodarone HCl (Cordarone) 200 mg Q8 PO Last administered on 02/26/16 05:29; Admin Dose 200 MG; Start 02/21/16 at 22:00 Hydralazine HCl (Apresoline) 10 mg Q12 PO Last administered on 02/24/16 20:51 ; Admin Dose 10 MG; Start 02/21/16 at 21:00 Insulin Glargine 20 unit 20 unit QHS SC Last administered on 02/25/16 21:30; Admin Dose 20 UNIT; Start 02/22/16 at 21:00 Ceftriaxone Sodium (Rocephin) 50 ml @ 100 mls/hr Q24H IVPB Last administered on 02/26/16 10:12; Admin Dose 100 MLS/HR; Start 02/22/16 at 10:00 Heparin Sodium (Porcine) (Heparin (5000 Units/0.5 ml)) 5,000 unit BID SC Last administered on 02/26/16 10:12; Admin Dose 5,000 UNIT; Start 02/23/16 at 09:00 Prednisone (Prednisone) 20 mg DAILY PO Last administered on 02/26/16 10:16; Admin Dose 20 MG; Start 02/24/16 at 09:00 CINTHIA GOLDBERG Feb 26, 2016 10:55
--- NOTE | 2016-02-26 12:07 | PDOCDIS ---
Discharge Instructions CONDITION Patient Condition: Good HOME CARE INSTRUCTIONS: Diet Instructions: Low Fat /CholesterolSpecial Diet: Renal ACTIVITY: Activity Restrictions: Slowly Increase Activity Rest between Activity FOLLOW UP/APPOINTMENTS Appointments Follow up with cardiology and nephrology as out-pt OSWALDO MIGUEL MD Feb 26, 2016 12:07
[2016-02-26] MEDS ORDERED: ASP81 PO (12:12)
[2016-02-26] MEDS ORDERED: LANT3I SC (12:12)
[2016-02-26] MEDS ORDERED: METO25TA7 PO (12:12)
[2016-02-26] MEDS ORDERED: FURO20TA3 PO (12:12)
[2016-02-26] MEDS ORDERED: NOVO3I SC (12:12)
[2016-02-26] MEDS ORDERED: AMIO200T2 PO (12:12)
[2016-02-26] MEDS ORDERED: LOSA25TA5 PO (13:25)
[2016-02-26] MEDS ORDERED: AMIODARONE 200 MG TAB PO SCH (21:00)
--- NOTE | 2016-02-26 22:47 | DS ---
DATE OF ADMISSION: 02/20/2016 DATE OF DISCHARGE: 02/26/2016 CONSULTANTS: 1. Dr. Shon Mcdaniels. 2. Dr. Jefferson Foster. PROCEDURES: 1. Renal ultrasound, which showed atrophic kidney without significant increase of parenchyma echoge nicity to suggest medical renal disease 2. Lexiscan myocardial perfusion study, which showed distribution of the scintigraphic abnormalitie s are most consistent with a small nonreversible perfusion defect in the apical wall. Severe hypoki nesis of the dilated left ventricle. The left ventricular ejection fraction at stress is 18%. DISCHARGE DIAGNOSES: 1. Wide complex tachycardia, most likely consistent with nonsustained ventricular tachycardia versu s aberrant supraventricular tachycardia. The patient has an AICD. We will continue beta-jack an d amiodarone. 2. Cardiomyopathy with severely depressed left ventricular ejection fraction of 18%. Continue beta -jack, Lasix, Losartan. 3. Non-ST myocardial infarction with history of atrial flutter. The patient will continue aspirin and statin. Cardiology was consulted. Status post Lexiscan Cardiolite stress test. 4. Status post AICD discharge x3. Cardiology was consulted, stable. Continue beta-jack and ami odarone. 5. Chronic obstructive pulmonary disease. Status post oxygen supplementation. The patient was dis charged on breathing treatments, steroids. 6. Congestive heart failure, as above. 7. Anemia, stable. 8. Essential hypertension, well controlled on medical management. 9. Acute on chronic renal insufficiency, improved. 10. Diabetes mellitus, better controlled on Lantus and premeal insulin. 11. Leukocytosis, steroid induced. The patient is afebrile. MEDICATIONS: 1. Amiodarone 200 mg p.o. b.i.d. 2. Aspirin 81 mg daily. 3. NovoLog 8 units with meals. 4. Lantus 20 units subq at bedtime. 5. Losartan 25 mg p.o. daily. 6. Metoprolol 25 mg p.o. b.i.d. 7. Combivent inhalation. 8. Atorvastatin 10 mg p.o. at bedtime. 9. Nexium 40 mg p.o. daily. 10. Advair 250/50. 11. Anoro Ellipta. 12. Lasix 20 mg p.o. b.i.d. ALLERGIES: NO KNOWN DRUG ALLERGIES. DISPOSITION: Home. FOLLOWUP: With cardiology and nephrology as outpatient. HOSPITAL COURSE: This is a 75-year-old gentleman with past medical history of COPD, hypertension, d iabetes mellitus, cardiomyopathy, history of AICD, chronic steroids, dyslipidemia, paroxysmal atrial fibrillation, congestive heart failure, chronic kidney disease, nicotine dependency who has been co mplaining of having shortness of breath x1 day and he had AICD discharge x3 in the morning of 2016 was brought into the emergency room via EMS. His chest x-ray showed minimal fluid. Blood pres sure 141/81, temperature 98.1, pulse 93, respiration 22, oxygen 100% on 4 liters. EKG was found to have atrial fibrillation/flutter with 2:1 AV conduction, right bundle branch block. Cardiology was consulted. In the course of emergency room, the patient had an episode of V-tach, which was treated on amiodarone IV. Was admitted to telemetry floor, which he was continued to be observed. His tro ponin was found to be elevated and it was planned to take the patient to the cardiac laboratory chief for le heart catheterization, although the patient's creatinine was found to be elevated; therefore, nep hrology was consulted. The patient was placed on Mucomyst and gentle IV fluid. His creatinine star mikayla to improve, although patient was found to be asymptomatic. No more AICD shock. On 02/25/2016, the patient was sent to radiology for Lexiscan Cardiolite stress test, which showed nonreversible pe rfusion defect in apical wall with severe hypokinesis of dilated left ventricle. The left ventricul ar ejection fraction was found to be 18%. As per fire truck driver standpoint, no further study or inter vention needed. The patient denies any chest pain, shortness of breath, nausea, vomiting, diarrhea. No headache, dizziness, lightheadedness, or any discomfort. Regarding the patient's diabetes sameer itus, the patient placed on Lantus, insulin sliding scale, low-carbohydrate diet. Regarding his hyp ertension, the patient was continued on home medication, metoprolol, Lasix, and Losartan was decreas ed from 50 mg to 25 mg. At this time, patient is medically stable to be discharged home with a clos e followup with his primary care physician, cardiology, and nephrology as outpatient. Total amount of time that was spent for evaluation of patient and discharge workup 40 minutes. Dictated By: OSWALDO MIGUEL MD PN/NTS Conf#: [id number] DID#: [id number]
== END 2016-02-26 15:43 | disposition home or self-care (01) | DRG 280 ==
LOC: E/R 06:30 → TEL 08:27
PROVIDERS: ADMIT Family Medicine; ATTEND Family Medicine
PROC: C23GYZZ Positron Emission Tomographic (PET) Imaging of Myocardium using Other Radionuclide (ICD-10-PCS; principal; 2016-02-25)
PROC: 4A02XM4 Measurement of Cardiac Total Activity, External Approach (ICD-10-PCS; 2016-02-25)
PROC: 3E033HZ Introduction of Radioactive Substance into Peripheral Vein, Percutaneous Approach (ICD-10-PCS; 2016-02-25)
DX: I47.2 Ventricular tachycardia (principal); I50.23 Acute on chronic systolic (congestive) heart failure; I21.4 Non-ST elevation (NSTEMI) myocardial infarction; J96.01 Acute respiratory failure with hypoxia; N17.9 Acute kidney failure, unspecified; I42.9 Cardiomyopathy, unspecified; E83.9 Disorder of mineral metabolism, unspecified; I13.0 Hypertensive heart and chronic kidney disease with heart failure and stage 1 through stage 4 chronic kidney disease, or unspecified chronic kidney disease; J44.1 Chronic obstructive pulmonary disease with (acute) exacerbation; E11.22 Type 2 diabetes mellitus with diabetic chronic kidney disease; N18.9 Chronic kidney disease, unspecified; Z79.52 Long term (current) use of systemic steroids; I48.0 Paroxysmal atrial fibrillation; E78.5 Hyperlipidemia, unspecified; Z95.810 Presence of automatic (implantable) cardiac defibrillator; E87.5 Hyperkalemia; F17.210 Nicotine dependence, cigarettes, uncomplicated; I48.92 Unspecified atrial flutter; D63.8 Anemia in other chronic diseases classified elsewhere
CPT/HCPCS: 36415; 36600; 71010; 76775; 78452; 80048; 80053; 80061; 80162; 81003; 82043; 82550; 82553; 82803; 82962; 83036; 83690; 83735; 83880; 84100; 84132; 84155; 84300; 84443; 84484; 85025; 85335; 85610; 85730; 93005; 93017; 94664; 96365; 96372; 96375; A9500; A9505; J0282; J0696; J1644; J1815; J1940; J2060; J2785; J2920; J3475; J7512